=== PATIENT | male | born 1960 | race Caucasian/White ===

== ENCOUNTER 2016-05-24 11:51 | Inpatient (IN) | payer MEDICARE, MEDICAID ==
[2016-05-24] MEDS ORDERED: LACTATED RINGERS 1,000 ML ONE (12:44)
[2016-05-24] MEDS ORDERED: PIPERACILLIN-TAZO PREMIX BAG 50 ML IV ONE (12:44)
[2016-05-24 12:52] LABS: ABSOLUTE NEUTROPHIL COUNT 13.3 K/mm3 (1.8-7.7); BASO # 0.1 K/mm3 (0.0-0.2); BASO % 0.5 % (0.2-1.0); HEMATOCRIT 40.3 % (32.0-52.0); HEMOGLOBIN 13.9 gm/l (14.0-18.0); IMM NEUT # 0.4 K/mm3 (0-0.2); IMM NEUT% 2.5 % (0-1); LYMPH # 0.4 (1.0-4.8); LYMPH % 2.5 % (15-45); MEAN CELL VOLUME 80.9 fl (80.0-94.0); MEAN CORPUSCULAR HEMOGLOBIN 27.9 pg (27.0-31.0); MEAN CORPUSCULAR HGB CONC 34.5 g/dl (33.0-37.0); MEAN PLATELET VOLUME 13.8 fl (7.4-10.4); MONO # 0.8 (0.0-0.8); MONO % 5.4 % (4-12); NEUT % 89.1 % (43-75); PLATELET COUNT 51 K/mm3 (130-400); RED CELL DISTRIBUTION WIDTH 13.4 % (11.5-14.5)
[2016-05-24 13:09] LABS: ALB/GLOB RATIO 0.6 (>1.0); ALBUMIN 2.2 gm/dL (3.5-5.7); CALCIUM 6.9 mg/dL (8.6-10.3); MAGNESIUM 1.1 mg/dL (1.9-2.7)
[2016-05-24 13:10] LABS: VENOUS BLOOD GAS BASE EXCESS 3.3 mmol/L (-2.0-2.0); VENOUS BLOOD GAS HCO3 24.7 mmol/L (22.0-27.0)
[2016-05-24 13:17] LABS: INR 1.25; PROTHROMBIN TIME 13.2 SECONDS (9.3-11.4)
--- NOTE | 2016-05-24 13:22 | RAD ---
CHEST 2 VIEWS HISTORY: Fever and hypoxia. Frontal and lateral chest radiographs dated 05/24/2016.. COMPARISON: None. FINDINGS: FOCAL AIRSPACE OPACITY: No anup airspace consolidation. Findings of basilar scarring versus atelectasis, right greater than left. PLEURAL EFFUSION: None. CARDIOMEDIASTINAL SILHOUETTE: Nonenlarged. PNEUMOTHORAX: None identified. OSSEOUS STRUCTURES: No grossly destructive lesions. Small radiopaque foreign body projecting over the left upper arm, correlate for history of projectile injury. IMPRESSION: No gross airspace consolidation identified. Bibasilar scarring versus atelectasis.
[2016-05-24] MEDS ORDERED: VANCOMYCIN HCL 2.5 G in SODIUM CHLORIDE 0.9% 500 ML IV SCH (13:45)
[2016-05-24 13:50] LABS: BAND 17 % (0-10); BASOPHIL 0 % (0-1); EOSINOPHIL 0 % (1-3); LYMPHOCYTE 2 % (15-45); MONOCYTE 4 % (4-12); NEUTROPHILS 77 % (43-75); TOTAL CELLS COUNTED 100
[2016-05-24 13:51] LABS: PLATELET ESTIMATE NO PLT CLUMPS SEEN (NORMAL)
[2016-05-24 14:25] LABS: SPECIFIC GRAVITY 1.005 (1.001-1.030); URINE BILIRUBIN 1+ (NEGATIVE); URINE BLOOD 3+ (NEGATIVE); URINE GLUCOSE (UA) NEGATIVE (NEGATIVE); URINE LEUKOCYTE ESTERASE TRACE (NEGATIVE); URINE NITRITE NEGATIVE (NEGATIVE); URINE PROTEIN 1+ (NEGATIVE); URINE UROBILINOGEN 12 mg/dL (0-1 mg/dl)
[2016-05-24 14:35] LABS: URINE APPEARANCE HAZY; URINE COLOR AMBER
[2016-05-24 14:36] LABS: CREATININE,RANDOM URINE 80 mg/dL
[2016-05-24 14:40] LABS: URINE BACTERIA 1+; URINE EPITHELIAL CELLS 0-2 /hpf; URINE RBC 20-30 /hpf
[2016-05-24 14:41] LABS: URINE AMORPHOUS SEDIMENT FEW
[2016-05-24] MEDS ORDERED: MAGNESIUM SULFATE 2 G/50 ML 50 ML IV ONE (15:00)
[2016-05-24] MEDS ORDERED: BUPRENORPHINE/NALOXONE 8MG/2MG 1 EACH FILM SL ONE (15:00)
[2016-05-24 15:31] VITALS: BMI 28.0
[2016-05-24] MEDS ORDERED: BISACODYL 5 MG TABLET.EC PO PRN (15:41)
[2016-05-24] MEDS ORDERED: MENTHOL/CETYLPYRD 1 EACH LOZENGE PO PRN (15:41)
[2016-05-24] MEDS ORDERED: BISACODYL 10 MG SUP PR PRN (15:41)
[2016-05-24] MEDS ORDERED: BLISTEX LIPSTICK 1 EACH TP PRN (15:41)
[2016-05-24] MEDS ORDERED: MAGNESIUM HYDROXIDE 30 ML UDCUP PO PRN (15:41)
[2016-05-24] MEDS ORDERED: HYDROMORPHONE HCL 1 MG/ML SYRINGE IV PRN (15:43)
[2016-05-24] MEDS ORDERED: ONDANSETRON 4 MG/2ML 2 ML VIAL IV PRN (15:43)
[2016-05-24] MEDS ORDERED: VANCOMYCIN HCL 0 G in SODIUM CHLORIDE 0.9% 250 ML IV SCH (15:45)
[2016-05-24] MEDS ORDERED: SODIUM CHLORIDE 0.9% FLUSH 10 ML ONE (15:49)
[2016-05-24] MEDS ORDERED: IV START KIT ONE (15:49)
[2016-05-24] MEDS ORDERED: HYDROMORPHONE HCL 2 MG/ML SYRINGE IV PRN (15:51)
[2016-05-24] MEDS ORDERED: ENOXAPARIN SODIUM 40 MG/0.4 ML SYRINGE SUB-Q SCH (16:00)
[2016-05-24] MEDS: SODIUM CHLORIDE 0.9% 1,000 ML IV SCH ×4 (16:28→23:39)
[2016-05-24] MEDS: PANTOPRAZOLE SODIUM 40 MG VIAL IV SCH (16:28)
[2016-05-24] MEDS ORDERED: PUMP TUBING ONE (16:29)
[2016-05-24] MEDS ORDERED: PROMETHAZINE HCL 12.5 MG in SODIUM CHLORIDE 0.9% 50 ML IV PRN (18:50)
[2016-05-24] MEDS: PIPERACILLIN-TAZO PREMIX BAG 3.375 G in Premix (D5W) 50 ml 1 EACH IV SCH (19:10)
[2016-05-24] MEDS: VANCOMYCIN HCL 1.75 G in SODIUM CHLORIDE 0.9% 500 ML IV SCH (20:04)
--- NOTE | 2016-05-24 21:10 | HP ---
KELLY LI [id number] ADMIT DATE: 05/24/2016 CHIEF COMPLAINT: Leg infection, fever and cough. HISTORY OF PRESENT ILLNESS: Kelly is a 55-year-old male long-term IV drug abuser (heroin). He has never been seen at our facility before. He presented to our emergency room on 05/24/2016 with about a five day history of gradually worsening fever, cough, shortness of breath and weakness, as well as infection on the inside of his right knee (injection site). He has had no headache, no visual symptoms, no difficulty swallowing and no chest pain, though he does feel short of breath. He has had a dry cough that has been nonproductive, with no blood. No abdominal pain and no change in bowel or bladder habits. He has had some increasing swelling in the bilateral lower extremities, in addition to the area of redness and abscess on the inside of the right knee. The abscess began draining just within the last day or so. He has also developed a rash over his feet just within the last one to two days. REVIEW OF SYSTEMS: As noted above, otherwise negative. PAST MEDICAL HISTORY: 1. Hepatitis C. Further details unknown. 2. Long-standing IV drug abuse with heroin. PAST SURGICAL HISTORY: 1. Tonsillectomy and adenoidectomy as a child. 2. Knee arthroscopies in the past. ALLERGIES: None. MEDICATIONS: None. SOCIAL HISTORY: He lives at [place] with his . He smokes about a pack a day for the last 20-30 years. No alcohol use. He does regularly use IV heroin, on average about two to three times a day. FAMILY HISTORY: Noncontributory. OBJECTIVE: VITAL SIGNS: On initial presentation to the ER his blood pressure was 101/62, pulse of 125, O2 sat 95% on two liters, and respirations 24 and labored. In the ER his blood pressure did go as low as 96/40, with a pulse of 137. He did receive some fluids in the ER and upon transfer to the floor his blood pressure was 108/64, with a pulse of 120, respirations of 24 and O2 sat 96% on two liters. GENERAL: This is a well-developed, well-nourished, disheveled-appearing, middle-aged male. He is speaking in full sentences. He yawns frequently during our interview. He does have a dry wheezy cough throughout the interview as well. He is in no distress otherwise. HEENT: Normocephalic, atraumatic. TMs are clear. Oropharynx mucosa with poor dentition, is moist otherwise. Sclera are anicteric. There are no hemorrhages or icterus. NECK: Supple. No JVD. No lymphadenopathy. No masses. LUNGS: Bilateral basilar rales, otherwise clear, with distant breath sounds. HEART: Regular rate and rhythm. He does have a 2/6 murmur heard best over the right upper sternal border. ABDOMEN: Soft, nontender and nondistended. No rebound or guarding. EXTREMITIES: On the inside of the right knee he has an area of redness approximately 8 cm in diameter. There is an open draining abscess in the middle. There is no real fluctuance. There does not appear to be an effusion in the knee itself. It is for the most part nontender to palpation. He has 2+ edema in the bilateral lower extremities, as well as a petechial rash over the entire dorsum of both feet beginning just above the ankle bilaterally and covering the dorsums of both feet. There are no other splinter hemorrhages and no other purpuric lesions. LABS: CBC with a white count of 14.9, with 77% neutrophils, 17% bands, 2% lymphs, 4% monos and zero percent eosinophils. Hemoglobin 13.9, hematocrit 40.3 and platelets of 41. Chemistry panel with a sodium of 153, potassium 3.3, chloride 93, carbon dioxide 21, BUN of 10, creatinine 0.6, glucose of 104, calcium 6.9 and magnesium 1.1. Total bilirubin elevated at 1.9, AST of 54, ALT of 35, alkaline phosphatase of 91, troponin 0.03, BNP of 204 and lipase of 14. INR is slightly elevated at 1.25. Lactate is elevated at 2.6. Urinalysis has 1+ protein, 3+ blood, negative nitrites, trace leukocyte esterase and 1+ bacteria. Influenza A and B and Group A Strep are all negative. IMAGING: Chest x-ray; normal cardiac silhouette. No obvious infiltrates or effusions. ASSESSMENT: 1. Cellulitis/abscess to the left knee in an IV drug abuser (injection site). 2. Severe sepsis secondary to above. 3. Presumed endocarditis, with heart murmur, fever and petechial rash over the lower extremities. 4. Thrombocytopenia. 5. Chronic hepatitis C, with no other details known. 6. Long-standing IV drug abuse with heroin. 7. Hyponatremia and hypomagnesemia. PLAN: He is admitted to [facility] [place]. Unfortunately his severe sepsis was not recognized in the ER and he did not receive adequate fluid per protocol there. We have initiated aggressive IV fluid here. He actually appears minimally symptomatic at this point. Blood cultures and cultures of his abscess have been drawn. We have started him on vancomycin and Zosyn. Electrolytes will be replaced and followed. We will attempt to get an echo as soon as possible. As far as the wound itself, it does not appear to be fluctuant or have a large abscess. We will reevaluate in the morning and consider CT of the lower extremity at that point depending on how it looks. It appears to be superficial and localized. DVT prophylaxis is contraindicated given his low platelets. Further care is dictated by clinical course.
[2016-05-24] MEDS: HYDROMORPHONE HCL 2 MG/ML SYRINGE IV PRN (21:41)
[2016-05-25] MEDS: PIPERACILLIN-TAZO PREMIX BAG 3.375 G in Premix (D5W) 50 ml 1 EACH IV SCH ×5 (00:23→23:03)
[2016-05-25] MEDS: VANCOMYCIN HCL 1.75 G in SODIUM CHLORIDE 0.9% 500 ML IV SCH ×3 (03:15→23:43)
[2016-05-25 03:16] LABS: OSMOLALITY 274 mOs/Kg (275-300)
[2016-05-25 03:17] LABS: OSMOLALITY,URINE 396 mOs/Kg (500-800)
[2016-05-25 05:59] LABS: ABSOLUTE NEUTROPHIL COUNT 11.4 K/mm3 (1.8-7.7); BASO # 0.1 K/mm3 (0.0-0.2); BASO % 0.4 % (0.2-1.0); EOS % 0.2 % (0.9-2.9); HEMATOCRIT 37.6 % (32.0-52.0); IMM NEUT # 0.1 K/mm3 (0-0.2); IMM NEUT% 0.5 % (0-1); LYMPH # 0.5 (1.0-4.8); LYMPH % 4.2 % (15-45); MEAN CELL VOLUME 80.3 fl (80.0-94.0); MEAN CORPUSCULAR HEMOGLOBIN 27.8 pg (27.0-31.0); MEAN CORPUSCULAR HGB CONC 34.6 g/dl (33.0-37.0); MONO # 0.7 (0.0-0.8); MONO % 5.6 % (4-12); NEUT % 89.1 % (43-75); PLATELET COUNT 36 K/mm3 (130-400); RED CELL DISTRIBUTION WIDTH 13.6 % (11.5-14.5)
[2016-05-25 06:02] LABS: ALB/GLOB RATIO 0.6 (>1.0); ALBUMIN 2.2 gm/dL (3.5-5.7); CALCIUM 7.5 mg/dL (8.6-10.3)
[2016-05-25 06:25] LABS: BAND 0 % (0-10); BASOPHIL 0 % (0-1); EOSINOPHIL 0 % (1-3); LYMPHOCYTE 5 % (15-45); MONOCYTE 4 % (4-12); NEUTROPHILS 91 % (43-75); PLATELET ESTIMATE DECREASED (NORMAL); TOTAL CELLS COUNTED 100
[2016-05-25] MEDS ORDERED: PNEUMOCOCCAL 23-VAL P-SAC VAC 0.5 ML VIAL IM V ONE (09:41)
[2016-05-25] MEDS ORDERED: FLU VACC 2016-17 (36MO-64Y)/PF 60 MCG/0.5 ML SYRINGE IM V ONE (09:41)
[2016-05-25] MEDS: LORAZEPAM 2 MG/ML 1ML SDV IV PRN ×2 (10:18→21:56)
[2016-05-25] MEDS: SODIUM CHLORIDE 0.9% 1,000 ML IV SCH ×2 (10:55→21:58)
--- NOTE | 2016-05-25 11:16 | PDOC43 ---
- Subjective Chief Complaint: Leg infection, fever, cough, SOB Feeling better this AM. Still SOB and cough but improved. No fever since admit. Leg redness/warmth improved. Subjective: Reports Pain Tolerable, Reports Tolerating Diet Well, Reports Adequate Oral Intake, Denies Chest Pain, Denies Abdominal Pain, Denies Nausea, Denies Vomiting - Objective Vital Signs Temperature 98.6 F 05/25/16 07:02 Pulse Rate 100 05/25/16 07:02 Respiratory Rate 32 05/25/16 07:02 Blood Pressure 125/79 05/25/16 07:02 O2 Saturation by Pulse Oximetry 98 05/25/16 07:02 Oxygen Delivery Method Nasal Cannula Oxygen Flow Rate 2 Intake and Output 05/24/16 05/25/16 05/26/16 06:59 06:59 06:59 Intake Total 6898 236 Output Total 3850 Balance 3048 236 General: Alert, Oriented x3, Cooperative, No Acute Distress HEENT: Atraumatic, PERRLA, Mucous membr. moist/pink Lungs: Other (Scattered coarse sounds B.) Cardiovascular: Regular Rate and Rhythm, Murmur (2/6 SOCORRO.) Abdomen: Soft, Normal Bowel Sounds, Non-Distended, No Rebounding Extremities: Other (Edema decreased to 1+ B. Petechial rash on B feet/shins markedly improved. Cellulitis/abcess on inner R knee improved and appears superficial. No effusion. No extension of redness/warmth.) Laboratory 05/25/16 05:30 05/24/16 05/24/16 05/25/16 12:24 19:25 05:30 Neutrophils % (Manual) 91 H Band Neutrophils % 0 Lymphocytes % (Manual) 5 L Monocytes % (Manual) 4 Eosinophils % (Manual) 0 L VBG Lactate 2.6 H 2.8 H 1.3 Sodium 125 L Potassium 3.4 L Chloride 95 L Carbon Dioxide 23 Anion Gap 10 Creatinine 0.6 Estimated GFR 140 H Total Bilirubin 1.9 H AST 50 H ALT 32 Alkaline Phosphatase 83 Troponin I < 0.01 Current Medications: Current meds reviewed in EMR. - Problems: Assessment/Plan (1) Cellulitis and abscess of lower extremity Status: AcuteAssessment/Plan: At IVDA injection site on medial R knee. Improved today. No evidence of deeper abcess or nec fac. All prelim blood cx and wound cx growing gpc in clusters. Con't vanco/zosyn. (2) Severe sepsis Status: AcuteAssessment/Plan: Associated with above. Resolved. (3) Endocarditis Qualifiers: Endocarditis type: unspecified Chronicity: unspecified Qualifier Code: (I38) Endocarditis, valve unspecified Status: SuspectedAssessment/Plan : Suspected Infective Endocarditis based on multiple minor criteria. TTE scheduled for today. Blood cx results as above. May need transfer for LIZ/ cardiology vs phone consult with ID/cardiology once echo and cx results known. (4) Hyponatremia Status: AcuteAssessment/Plan: Presumed d/t above. Osmolalities pending. Improving, supportive care. (5) Thrombocytopenia Status: AcuteAssessment/Plan: Unclear etiology- severe sepsis vs IVDA vs DIC vs? Follow closely, supportive care. No DVT prophylaxis. (6) Heroin abuse Status: ChronicAssessment/Plan: Long standing heavy use. SW consult. IV ativan/dilaudid prn for withdrawal sx. (7) Hepatitis C Qualifiers: Viral hepatitis chronicity: unspecified Status: ChronicAssessment/Plan: Unknown details. Supportive care. VTE Prophylaxis: Contraindicated d/t thrombocytopenia. Disposition: Unknown.
[2016-05-25] MEDS ORDERED: SODIUM CHLORIDE 0.9% FLUSH 10 ML ONE (11:58)
[2016-05-25] MEDS ORDERED: IV START KIT ONE (11:58)
[2016-05-25 12:00] LABS: VANCOMYCIN TROUGH 14.2 ug/ml (5.0-10.0)
[2016-05-25] MEDS ORDERED: LIDOCAINE 1% (PRES FREE) 5 ML VIAL PF PRN (12:42)
[2016-05-25] MEDS ORDERED: LORAZEPAM 2 MG/ML 1ML SDV IV PRN (12:42)
--- NOTE | 2016-05-25 14:57 | RAD ---
PORTABLE CHEST RADIOGRAPH HISTORY: PICC placement. Frontal portable chest radiograph dated 05/25/2016. COMPARISON: 05/24/2016. FINDINGS: FOCAL AIRSPACE OPACITY: Patchy right basal density, pneumonia is possible. PLEURAL EFFUSION: Small right pleural effusion. LUNG VOLUMES: Diminished. CARDIOMEDIASTINAL SILHOUETTE: Nonenlarged. Interval placement of left upper extremity approach venous catheter, tip projecting over the superior vena cava, PICC nurse aware. PNEUMOTHORAX: None identified. OSSEOUS STRUCTURES: No grossly destructive lesions. IMPRESSION: Low lung volumes with interval development of right lung base density, atelectasis and pneumonia are possible. Small right pleural effusion. Left-sided PICC, tip projecting over superior vena cava.
[2016-05-25] MEDS ORDERED: METHADONE 10 MG TABLET PO SCH (15:15)
--- NOTE | 2016-05-25 15:18 | RAD ---
PORTABLE CHEST RADIOGRAPH HISTORY: Recheck PICC placement. Frontal portable chest radiograph dated 05/25/2016 at 1512 hours. COMPARISON: 05/25/2016 at 1433 hours FINDINGS: FOCAL AIRSPACE OPACITY: Redemonstration of low lung volumes and right basal density. PLEURAL EFFUSION: None. CARDIOMEDIASTINAL SILHOUETTE: Nonenlarged. Left upper extremity approach catheter now projects over the right atrium, PICC nurse aware. PNEUMOTHORAX: None identified. OSSEOUS STRUCTURES: No grossly destructive lesions. IMPRESSION: Interval advancement of left-sided PICC, projecting over the right atrium. Residual low lung volumes. Right basal density compatible with atelectasis or pneumonia.
[2016-05-25] MEDS: ALBUTEROL NEB 2.5 MG/3 ML VIAL.NEB NEB PRN ×2 (16:12→19:46)
[2016-05-25] MEDS: HYDROMORPHONE HCL 2 MG/ML SYRINGE IV PRN (16:57)
[2016-05-25] MEDS: PANTOPRAZOLE SODIUM 40 MG VIAL IV SCH (17:18)
--- NOTE | 2016-05-25 20:02 | PDOC36 ---
Provider Note Subject: follow-up Note: Heroin withdrawal--methadone started Poor IV access--PICC placed hypokalemia--replace hypoxemia and PNA vs. atylectasis on CXR--continue current abx, schedule dugingerbs , IS TT ECHO without evidence of vegetations--given high clinical suspicion for endocarditis, will still need LIZ.
[2016-05-25] MEDS ORDERED: POTASSIUM CHLORIDE 40 MEQ in SODIUM CHLORIDE 0.9% 500 ML IV ONE (20:30)
[2016-05-25] MEDS ORDERED: PUMP TUBING ONE (20:48)
[2016-05-25] MEDS: ALBUTEROL/IPRATROPIUM 2.5/0.5 MG 3 ML/EACH DOSE NEB SCH (21:30)
[2016-05-25] MEDS: ACETAMINOPHEN 325 MG TABLET PO PRN (23:23)
[2016-05-26] MEDS ORDERED: VANCOMYCIN HCL 1.75 G in SODIUM CHLORIDE 0.9% 500 ML IV SCH (01:00)
[2016-05-26] MEDS: HYDROMORPHONE HCL 2 MG/ML SYRINGE IV PRN ×2 (01:40→20:39)
[2016-05-26] MEDS: SODIUM CHLORIDE 0.9% 1,000 ML IV SCH ×3 (02:26→14:07)
[2016-05-26] MEDS: METHADONE 10 MG TABLET PO SCH ×2 (02:58→14:38)
[2016-05-26] MEDS: PIPERACILLIN-TAZO PREMIX BAG 3.375 G in Premix (D5W) 50 ml 1 EACH IV SCH ×2 (05:18→11:29)
[2016-05-26 05:38] LABS: HEMATOCRIT 36.8 % (32.0-52.0); HEMOGLOBIN 12.4 gm/l (14.0-18.0); MEAN CELL VOLUME 82.9 fl (80.0-94.0); MEAN CORPUSCULAR HEMOGLOBIN 27.9 pg (27.0-31.0); MEAN CORPUSCULAR HGB CONC 33.7 g/dl (33.0-37.0)
[2016-05-26 05:58] LABS: ALB/GLOB RATIO 0.6 (>1.0); CALCIUM 7.3 mg/dL (8.6-10.3); MAGNESIUM 1.8 mg/dL (1.9-2.7)
[2016-05-26] MEDS: VANCOMYCIN HCL 1.75 G in SODIUM CHLORIDE 0.9% 500 ML IV SCH ×2 (07:50→16:18)
[2016-05-26] MEDS: ALBUTEROL/IPRATROPIUM 2.5/0.5 MG 3 ML/EACH DOSE NEB SCH ×4 (08:15→20:28)
[2016-05-26] MEDS ORDERED: PNEUMOCOCCAL 23-VAL P-SAC VAC 0.5 ML VIAL IM V ONE (09:00)
[2016-05-26] MEDS ORDERED: FLU VACC 2016-17 (36MO-64Y)/PF 60 MCG/0.5 ML SYRINGE IM V ONE (09:00)
[2016-05-26] MEDS: POTASSIUM CHLORIDE 20 MEQ TAB.PRT.SR PO SCH ×2 (11:57→14:08)
[2016-05-26] MEDS: Magnesium Oxide 400 MG TABLET PO SCH ×2 (11:57→23:05)
--- NOTE | 2016-05-26 15:04 | US ---
RT SHOULDER NON VASC COMPARISON: Chest one view, 05/25/2016 HISTORY: Right shoulder arthralgia, sepsis, limited range of motion, and history of intravenous drug abuse. Evaluate for effusion. FINDINGS: Area scanned: Right shoulder anterior, lateral, and posterior Fluid collection: There is no visible joint effusion or bursal fluid collection. IMPRESSION: 1. No visible joint effusion or bursal fluid collection of the right shoulder.
[2016-05-26 16:09] LABS: VANCOMYCIN TROUGH 15.3 ug/ml (5.0-10.0)
[2016-05-26] MEDS: PANTOPRAZOLE SODIUM 40 MG VIAL IV SCH (16:18)
--- NOTE | 2016-05-26 17:29 | PDOC43 ---
- Subjective Chief Complaint: Leg infection, fever, cough, SOB Subjective: Reports Pain Tolerable, Denies Shortness of Breath, Denies Chest Pain, Denies Fever - Objective Vital Signs Temperature 98.6 F 05/26/16 16:00 Pulse Rate 96 05/26/16 16:31 Respiratory Rate 29 05/26/16 16:31 Blood Pressure 156/88 05/26/16 16:00 O2 Saturation by Pulse Oximetry 96 05/26/16 16:31 Oxygen Delivery Method Nasal Cannula Oxygen Flow Rate 3 Intake and Output 05/25/16 05/26/16 05/27/16 06:59 06:59 06:59 Intake Total 6894 6790 3192 Output Total 3850 2851 1300 Balance 3048 2703 1892 General: Alert, Oriented x3, Cooperative, No Acute Distress HEENT: Mucous membr. moist/pink Lungs: Diminished at Bases (some scattered coarse breath sounds) Cardiovascular: Regular Rate and Rhythm, Murmur (2/6 SOCORRO) Abdomen: Soft, Normal Bowel Sounds, Non-Distended, No Tenderness Extremities: Edema (one plus pedal and ankle edema, some bilateral hand swelling ), Other (right shoulder painful to passive ROM and resists active ROM) Skin: Erythema (improved over medial mid lower leg, purulent drainage from abcess with skin opening of 2mm, no knee effusion, FROM right knee) Laboratory 05/26/16 05:00 05/26/16 15:40 05/26/16 05/26/16 15:40 05:00 RBC 4.44 L Estimated GFR 173 H 140 H Calcium 7.3 L Magnesium 1.8 L Total Bilirubin 1.4 H AST 58 H Total Protein 5.5 L Albumin 2.0 L Albumin/Globulin Ratio 0.6 L Vancomycin Trough 15.3 H Current Medications: Current meds reviewed in EMR. - Problems: Assessment/Plan (1) Cellulitis and abscess of lower extremity Status: AcuteAssessment/Plan: At IVDA injection site on medial R knee. Improved today. No evidence of deeper abcess or nec fac. All prelim blood cx growing gpc in clusters, urine and abscess both growing MRSA. Cont. vanco and stop zosyn. Repeat daily blood Cx until negative (2) Severe sepsis Status: AcuteAssessment/Plan: Associated with above. Resolved. (3) Hyponatremia Status: AcuteAssessment/Plan: Presumed d/t above. Osmolalities pending. Improving, supportive care. (4) Thrombocytopenia Status: AcuteAssessment/Plan: Unclear etiology- severe sepsis vs IVDA vs DIC vs? Follow closely, supportive care. No DVT prophylaxis. (5) Heroin abuse Status: ChronicAssessment/Plan: Long standing heavy use. consult. Methadone for withdrawal sx. (6) Hepatitis C Qualifiers: Viral hepatitis chronicity: unspecified Status: ChronicAssessment/Plan: Unknown details. Supportive care. (7) Endocarditis Qualifiers: Endocarditis type: unspecified Chronicity: unspecified Qualifier Code: (I38) Endocarditis, valve unspecified Status: SuspectedAssessment/Plan : Suspected Infective Endocarditis based on multiple minor criteria. TTE showed no vegetations. Blood cx results as above. D/W ID, will likely need 4-6 weeks of Vancomycin, need to TEECHO is unclear, but would be recommended for persistently positive blood CX, advised to repeat Blood Cx daily until negative. VTE Prophylaxis: [facility] measures only concern for use of heparin analogues due to thrombocytopenia Disposition: Anticipate need for SNF stay
[2016-05-26] MEDS: ACETAMINOPHEN 325 MG TABLET PO PRN (23:09)
[2016-05-27] MEDS ORDERED: PUMP TUBING ONE ×3 (00:03→23:14)
[2016-05-27] MEDS: VANCOMYCIN HCL 1.75 G in SODIUM CHLORIDE 0.9% 500 ML IV SCH ×4 (00:13→23:23)
[2016-05-27] MEDS: LORAZEPAM 2 MG/ML 1ML SDV IV PRN (00:57)
[2016-05-27] MEDS: SODIUM CHLORIDE 0.9% 1,000 ML IV SCH (01:02)
[2016-05-27] MEDS: METHADONE 10 MG TABLET PO SCH ×2 (03:36→15:40)
[2016-05-27 06:18] LABS: CALCIUM 7.4 mg/dL (8.6-10.3); MAGNESIUM 1.7 mg/dL (1.9-2.7)
[2016-05-27] MEDS: ALBUTEROL/IPRATROPIUM 2.5/0.5 MG 3 ML/EACH DOSE NEB SCH ×4 (09:32→20:03)
[2016-05-27] MEDS ORDERED: FUROSEMIDE 20 MG/2 ML VIAL IV ONE (09:46)
[2016-05-27] MEDS ORDERED: FUROSEMIDE 20 MG/2 ML VIAL ONE (09:52)
[2016-05-27] MEDS ORDERED: ATENOLOL 50 MG TABLET PO SCH (10:15)
--- NOTE | 2016-05-27 10:22 | PDOC43 ---
- Subjective Chief Complaint: Leg infection, fever, cough, SOB Subjective: Reports Adequate Oral Intake, Denies Shortness of Breath, Denies Chest Pain, Denies Fever - Objective Vital Signs Temperature 98.8 F 05/27/16 07:00 Pulse Rate 104 05/27/16 07:00 Respiratory Rate 32 05/27/16 08:00 Blood Pressure 145/97 05/27/16 07:00 O2 Saturation by Pulse Oximetry 99 05/27/16 07:00 Oxygen Delivery Method Room Air Oxygen Flow Rate 0 Intake and Output 05/26/16 05/27/16 05/28/16 06:59 06:59 06:59 Intake Total 5550 1848 300 Output Total 2851 9715 1125 Balance 2703 9923 -828 General: Alert, Oriented x3, Cooperative HEENT: Mucous membr. moist/pink Lungs: Diminished at Bases, Other (some exp wheezes) Cardiovascular: Other (reg tachy, faint murmur-2/6 SOCORRO) Abdomen: Soft, Normal Bowel Sounds, Non-Distended, No Tenderness Extremities: Edema (diffuse anasarca) Skin: Other (right medial mid leg wound/abscess improving, erythema almost resolved, no fluctuance, minimal drainage) Laboratory 05/26/16 05:00 05/27/16 05:00 05/27/16 05/26/16 05:00 15:40 BUN 6 L Estimated GFR 173 H 173 H Calcium 7.4 L Magnesium 1.7 L Vancomycin Trough 15.3 H Current Medications: Current meds reviewed in EMR. - Problems: Assessment/Plan (1) Cellulitis and abscess of lower extremity Status: AcuteAssessment/Plan: At IVDA injection site on medial R knee. Improved today. No evidence of deeper abcess or nec fac. All prelim blood cx growing gpc in clusters, urine and abscess both growing MRSA. Cont. vanco. Repeat daily blood Cx until negative (2) Severe sepsis Status: AcuteAssessment/Plan: Associated with above. Resolved. (3) Hyponatremia Status: AcuteAssessment/Plan: Presumed d/t above. Osmolalities pending. Improving, supportive care. Fluid restrict (4) Thrombocytopenia Status: AcuteAssessment/Plan: Unclear etiology- severe sepsis vs IVDA vs DIC vs? Follow closely, supportive care. No DVT prophylaxis. (5) Heroin abuse Status: ChronicAssessment/Plan: Long standing heavy use. SW consult. Methadone for withdrawal sx. (6) Hepatitis C Qualifiers: Viral hepatitis chronicity: unspecified Status: ChronicAssessment/Plan: Unknown details. Supportive care. (7) Endocarditis Qualifiers: Endocarditis type: unspecified Chronicity: unspecified Qualifier Code: (I38) Endocarditis, valve unspecified Status: SuspectedAssessment/Plan : Suspected Infective Endocarditis based on multiple minor criteria. TTE showed no vegetations. Blood cx results as above. D/W ID, will likely need 4-6 weeks of Vancomycin, need to TEECHO is unclear, but would be recommended for persistently positive blood CX, advised to repeat Blood Cx daily until negative. (8) Anasarca Status: AcuteAssessment/Plan: will give Lasix (9) Hypertension Qualifiers: Hypertension type: other secondary hypertension Qualifier Code: (I15.8 ) Other secondary hypertension Status: AcuteAssessment/Plan: with tachycardia may be due to opioid withdrawal-add atenolol, cont. methadone VTE Prophylaxis: [facility] measures only concern for use of heparin analogues due to thrombocytopenia Disposition: Anticipate need for SNF stay
[2016-05-27] MEDS: ATENOLOL 50 MG TABLET PO SCH (11:39)
[2016-05-27] MEDS: Magnesium Oxide 400 MG TABLET PO SCH ×2 (11:39→21:15)
[2016-05-27 15:51] LABS: VANCOMYCIN TROUGH 16.3 ug/ml (5.0-10.0)
[2016-05-27] MEDS: PANTOPRAZOLE SODIUM 40 MG VIAL IV SCH (16:08)
[2016-05-27] MEDS: SODIUM CHLORIDE 0.9% 100 ML IV PRN (23:23)
[2016-05-28] MEDS: METHADONE 10 MG TABLET PO SCH ×2 (02:36→15:42)
[2016-05-28 06:31] LABS: CALCIUM 7.8 mg/dL (8.6-10.3)
[2016-05-28] MEDS: VANCOMYCIN HCL 1.75 G in SODIUM CHLORIDE 0.9% 500 ML IV SCH ×3 (08:03→23:32)
[2016-05-28] MEDS: ATENOLOL 50 MG TABLET PO SCH (08:05)
[2016-05-28] MEDS: Magnesium Oxide 400 MG TABLET PO SCH ×2 (08:05→19:59)
[2016-05-28] MEDS: ALBUTEROL/IPRATROPIUM 2.5/0.5 MG 3 ML/EACH DOSE NEB SCH ×3 (10:05→20:53)
[2016-05-28] MEDS ORDERED: FUROSEMIDE 20 MG/2 ML VIAL IV ONE (10:11)
--- NOTE | 2016-05-28 14:04 | PDOC43 ---
- Subjective Chief Complaint: Leg infection, fever, cough, SOB feeling better but upset about fluid restriction. Subjective: Denies Shortness of Breath, Denies Chest Pain, Denies Fever - Objective Vital Signs Temperature 98.6 F 05/28/16 07:08 Pulse Rate 84 05/28/16 11:00 Respiratory Rate 28 05/28/16 11:00 Blood Pressure 142/72 05/28/16 11:00 O2 Saturation by Pulse Oximetry 93 05/28/16 11:00 Oxygen Delivery Method Room Air Oxygen Flow Rate 0 Intake and Output 05/27/16 05/28/16 05/29/16 06:59 06:59 06:59 Intake Total 5297 9188 4279 Output Total 6885 5140 4730 Balance 4642 -8573 839 General: Alert, Oriented x3, Cooperative, No Acute Distress HEENT: Mucous membr. moist/pink Lungs: Diminished at Bases (some exp wheezes) Cardiovascular: Regular Rate and Rhythm, Murmur (faint, 2/6 SOCORRO) Abdomen: Soft, Normal Bowel Sounds, Non-Distended, No Tenderness Extremities: Edema (improving but still with 1+anasarca) Skin: Warm, Dry Wound: Dressing Saturated (with purulect drainage over medial aspect of right night, erythema resolving) Laboratory 05/26/16 05:00 05/28/16 04:05 05/28/16 05/27/16 04:05 15:25 Estimated GFR 140 H 173 H Calcium 7.8 L Vancomycin Trough 16.3 H Current Medications: Current meds reviewed in EMR. - Problems: Assessment/Plan (1) Cellulitis and abscess of lower extremity Status: AcuteAssessment/Plan: At IVDA injection site on medial R knee. Improved today. No evidence of deeper abcess or nec fac. All prelim blood cx growing MRSA, urine and abscess both growing MRSA. Cont. vanco. Repeat daily blood Cx until negative (2) Severe sepsis Status: AcuteAssessment/Plan: Associated with above. Resolved. (3) Hyponatremia Status: AcuteAssessment/Plan: Presumed d/t above. Osmolalities C/W SIADH. Improving, supportive care. Fluid restriction helped but doubt [employer] compliance, chronic liver disease may be playing a role-relax fluid restriction, Lasix 20mg IV times one. (4) Thrombocytopenia Status: AcuteAssessment/Plan: Unclear etiology- severe sepsis vs IVDA vs DIC vs chronic liver disease. Follow closely, supportive care. No DVT prophylaxis. (5) Heroin abuse Status: ChronicAssessment/Plan: Long standing heavy use. SW consult. Methadone for withdrawal sx. Patient states that he plans to remain abstinent and enroll in methadone maintenance program. Patient pledges not to use PICC if treated as an outpatient. (6) Hepatitis C Qualifiers: Viral hepatitis chronicity: unspecified Status: ChronicAssessment/Plan: Unknown details. Supportive care. (7) Endocarditis Qualifiers: Endocarditis type: unspecified Chronicity: unspecified Qualifier Code: (I38) Endocarditis, valve unspecified Status: SuspectedAssessment/Plan : Suspected Infective Endocarditis based on multiple minor criteria. TTE showed no vegetations. Blood cx results as above. D/W ID, will likely need 4-6 weeks of Vancomycin, need to TEECHO is unclear, but would be recommended for persistently positive blood CX, advised to repeat Blood Cx daily until negative. (8) Anasarca Status: AcuteAssessment/Plan: will give Lasix (9) Hypertension Qualifiers: Hypertension type: other secondary hypertension Qualifier Code: (I15.8 ) Other secondary hypertension Status: AcuteAssessment/Plan: improved with atenolol, cont. methadone VTE Prophylaxis: [facility] measures only concern for use of heparin analogues due to thrombocytopenia Disposition: Exploring options, patient would like to go to [facility] and be treated as an outpatient. If accepted by [facility], could potentially be discharge in am. Patient may need outpatient cardiology consult for transesophageal ECHO but would defer to ID specialist. SS working on referral for methadone maintenance.
[2016-05-28] MEDS: PANTOPRAZOLE SODIUM 40 MG VIAL IV SCH (15:42)
[2016-05-28 18:01] LABS: BODY FLUID APPEARANCE CLOUDY; BODY FLUID COLOR YELLOW; BODY FLUID RBC 0 k/uL; BODY FLUID SOURCE R SHOULDER; BODY FLUID WBC 60 /uL
[2016-05-28 18:02] LABS: BODY FLUID MONONUCLEAR 6 %; BODY FLUID NEUTROPHIL 94 %
[2016-05-28] MEDS: HYDROMORPHONE HCL 2 MG/ML SYRINGE IV PRN (19:56)
[2016-05-28] MEDS ORDERED: PUMP TUBING ONE (23:28)
[2016-05-29] MEDS: ATENOLOL 50 MG TABLET PO SCH (08:13)
[2016-05-29] MEDS: ACETAMINOPHEN 325 MG TABLET PO PRN ×2 (08:13→20:46)
[2016-05-29] MEDS ORDERED: CEFAZOLIN SODIUM 2 GRAM PREMIX 2 G in Premix (D5W) 100 ml 1 EACH IV PRN (08:44)
[2016-05-29 09:12] LABS: ABSOLUTE NEUTROPHIL COUNT 9.6 K/mm3 (1.8-7.7); BASO # 0.1 K/mm3 (0.0-0.2); BASO % 0.5 % (0.2-1.0); EOS # 0.2 (0.0-0.5); EOS % 1.9 % (0.9-2.9); HEMATOCRIT 39.6 % (32.0-52.0); HEMOGLOBIN 12.9 gm/l (14.0-18.0); IMM NEUT # 0.2 K/mm3 (0-0.2); IMM NEUT% 1.8 % (0-1); LYMPH % 8.6 % (15-45); MEAN CELL VOLUME 84.3 fl (80.0-94.0); MEAN CORPUSCULAR HEMOGLOBIN 27.4 pg (27.0-31.0); MEAN CORPUSCULAR HGB CONC 32.6 g/dl (33.0-37.0); MEAN PLATELET VOLUME 11.9 fl (7.4-10.4); MONO # 0.7 (0.0-0.8); NEUT % 81.2 % (43-75); PLATELET COUNT 114 K/mm3 (130-400); RED CELL DISTRIBUTION WIDTH 14.5 % (11.5-14.5)
[2016-05-29] MEDS ORDERED: LACTATED RINGERS 1,000 ML IV SCH ×2 (09:12→18:00)
[2016-05-29] MEDS ORDERED: PUMP TUBING ONE ×3 (09:24→20:26)
[2016-05-29 09:27] LABS: CALCIUM 7.9 mg/dL (8.6-10.3)
[2016-05-29] MEDS ORDERED: POTASSIUM CHLORIDE 40 MEQ in SODIUM CHLORIDE 0.9% 180 ML IV ONE (10:03)
[2016-05-29] MEDS ORDERED: MAGNESIUM SULFATE 2 G/50 ML 2 G in Premix (Water) 50 ml 1 EACH IV ONE (10:03)
[2016-05-29] MEDS: VANCOMYCIN HCL 1.75 G in SODIUM CHLORIDE 0.9% 500 ML IV SCH ×2 (10:07→20:35)
[2016-05-29] MEDS: METHADONE 10 MG TABLET PO SCH ×3 (10:11→20:46)
--- NOTE | 2016-05-29 10:12 | PDOC43 ---
- Subjective Subjective: Denies Pain Tolerable (Pt has pain with passive motion of the right shoulder. No previous problems prior to this hospital admission. Pt admits to some drainage still from his right leg abscess) - Objective Vital Signs Temperature 98.9 F 05/29/16 05:00 Pulse Rate 90 05/29/16 05:00 Respiratory Rate 18 05/29/16 05:00 Blood Pressure 132/79 05/29/16 05:00 O2 Saturation by Pulse Oximetry 93 05/29/16 05:00 Oxygen Delivery Method Nasal Cannula Oxygen Flow Rate 1 Laboratory 05/29/16 09:00 05/29/16 09:00 05/29/16 05/29/16 09:00 07:05 MCHC 32.6 L Estimated GFR 140 H Calcium 7.9 L Vancomycin Trough 18.5 H % Immature Granulocyt 1.8 H Active Medication Orders Category Date Time Status Acetaminophen [Tylenol] Med 05/24/16 15:41 Active 650 mg PO Q6H PRN Albuterol Sulf Neb 2.5mg/3ml [Ventolin Inhalation Med 05/24/16 15:43 Active Solution (Dose)] 2.5 mg NEB Q2H PRN Albuterol/Ipratropium 2.5/0.5 [Duoneb] Med 05/25/16 20:00 Active 3 ml NEB 08,12,16,20 Atenolol [Tenormin] Med 05/27/16 11:45 Active 50 mg PO DAILY Bisacodyl [Dulcolax] Med 05/24/16 15:41 Active 10 mg CO DAILY PRN Bisacodyl [Dulcolax] Med 05/24/16 15:41 Active 5 mg PO DAILY PRN Cefazolin Sodium 2 Gram Premix [Ancef 2 Gram Premix] 2 Med 05/29/16 08:44 Active g Premix (D5W) 100 ml 1 each IV ON HOLD TO OR Furosemide [Lasix] Med 05/29/16 10:15 Ordered 20 mg IV DAILY Lactated Ringers 1,000 ml Med 05/29/16 10:03 Ordered IV 125 mls/hr Lidocaine 1% (Pres Free) Med 05/25/16 12:42 Active 2 - 5 ml PF X1 PRN Lip [place] [Blistex] Med 05/24/16 15:41 Active 1 each TP PRN PRN Lorazepam [Ativan] Med 05/25/16 12:42 Active 0.5 - 1 mg IV X1 PRN Lorazepam [Ativan] Med 05/24/16 18:47 Active 1 mg IV Q6H PRN Magnesium Hydroxide [Milk of Magnesia] Med 05/24/16 15:41 Active 30 ml PO DAILY PRN Magnesium Oxide Med 05/26/16 12:00 Active 800 mg PO BID Magnesium Sulfate 2 G/50 ml [Magnesium Sulfate] 2 g Med 05/29/16 10:03 Ordered Premix (Water) 50 ml 1 each IV X1 Menthol/Cetylpyridinium [Cepacol] Med 05/24/16 15:41 Active 1 each PO PRN PRN Methadone Med 05/26/16 03:30 Active 20 mg PO Q12H Pantoprazole Sodium [Protonix] Med 05/24/16 16:00 Active 40 mg IV Q24H Potassium Chloride 40 meq Med 05/29/16 10:03 Ordered Sodium Chloride 0.9% 180 ml IV X1 Promethazine HCl [Phenergan] 12.5 mg Med 05/24/16 18:50 Active Sodium Chloride 0.9% 50 ml IV Q4H Sodium Chloride 0.9% 100 ml Med 05/24/16 15:41 Active IV PRN Sodium Chloride 0.9% Flush [Normal Saline 10ml Flush] Med 05/24/16 15:41 Active 10 - 50 ml IV PRN PRN Sodium Chloride 0.9% Flush [Normal Saline 10ml Flush] Med 05/24/16 17:00 Active 10 ml IV Q8HR Vancomycin HCl 1.75 g Med 05/26/16 00:00 Active Sodium Chloride 0.9% 500 ml IV Q8H Intake and Output 05/27/16 05/28/16 05/29/16 23:59 23:59 23:59 Intake Total 3504 4252 935 Output Total 3718 7654 1000 Balance -8630 1347 -65 General: Afebrile - Right Upper Extremity Incision: No Erythema, No Ecchymosis Motor: Extensor Pollicis Longus: 5/5, Finger Flexors: 5/5, Finger Extensors: 5/5 , Wrist Flexors: 5/5, Wrist Extensors: 5/5, Intrinsics: 5/5, Biceps: 4/5, Triceps: 4/5, Deltoid: 4/5 (painful with active and passive shoulder motion) Gross Sensation to Light Touch: Present: Median Nerve, Ulnar Nerve, Radial Nerve , Axillary Nerve Capillary Refill: < 3 Seconds (Pt has passive motion to 90 degrees in FF and abd but motion does cause pain out of proportion) - Right Lower Extremity Incision: Drainage (Pt has drainage by posteromedial knee consistent with an abscess. NO signs of a septic right knee. Pt has well-healed arthroscopic incisions from a previous knee scope), Erythema Capillary Refill: < 3 Seconds - Problems (1) Septic arthritis of shoulder, right Status: Acute (2) Abscess of right leg excluding foot Status: Acute - Disposition 55 yr old male active heroin user HD#4 with bacteremia with signs of a persistent right leg abscess and septic arthritis in the right shoulder NWB on the RUE. Sling for comfort. NPO with IVF. Cont with vanco. Ancef ordered emergency spill response technician to the OR. Pt consented for a right shoulder arthroscopic irrigation and extensive debridement and a right leg abscess irrigation and debridement
[2016-05-29] MEDS ORDERED: SODIUM CHLORIDE 0.9% IV ONE (10:45)
[2016-05-29] MEDS ORDERED: MAGNESIUM SULFATE IV ONE (10:45)
[2016-05-29] MEDS ORDERED: POTASSIUM CHLORIDE IV ONE (10:45)
--- NOTE | 2016-05-29 11:29 | RAD ---
FLUORO GUIDE NEEDLE PLACE/INJ COMPARISON: Ultrasound right shoulder 05/26/2016 HISTORY: Right shoulder arthralgia, sepsis, limited range of motion, and history of intravenous drug abuse. PROCEDURE: The risks and benefits were explained and informed consent was obtained. The skin over the anterior right shoulder was sterilized with ChloraPrep. Lidocaine 1% was used for local anesthetic. Under fluoroscopic guidance (fluoroscopy time 1.0 minute), a 20-gauge spinal needle was advanced into the anterior glenohumeral joint. A total of 3 mL of cloudy fluid was removed. There is no immediate complication. IMPRESSION: 1. Fluoroscopically guided arthrocentesis of the right glenohumeral joint. The specimen was sent for cell count, culture and sensitivity.
[2016-05-29] MEDS: Magnesium Oxide 400 MG TABLET PO SCH ×2 (12:08→20:46)
[2016-05-29] MEDS: FUROSEMIDE 20 MG/2 ML VIAL IV SCH (12:08)
[2016-05-29] MEDS: ALBUTEROL/IPRATROPIUM 2.5/0.5 MG 3 ML/EACH DOSE NEB SCH ×4 (12:26→20:26)
[2016-05-29] MEDS: SODIUM CHLORIDE 0.9% 100 ML IV PRN (12:35)
--- NOTE | 2016-05-29 12:47 | RAD ---
Exam: Complete right shoulder COMPARISON: None similar INDICATION: Sepsis. Findings: Portably obtained AP, Grashey and transscapular y views of the right shoulder were obtained. Overall normal bone mineralization. Alignment is normal. Joint spaces are maintained. Visualized right hemithorax within normal limits. IMPRESSION: Negative radiographic evaluation of the right shoulder, without findings of septic arthritis.
--- NOTE | 2016-05-29 13:23 | PDOC43 ---
- Subjective Chief Complaint: Leg infection, fever, cough, SOB Subjective: Reports Other (persistent right shoulder pain), Denies Shortness of Breath, Denies Chest Pain, Denies Fever - Objective Vital Signs Temperature 98.9 F 05/29/16 05:00 Pulse Rate 90 05/29/16 05:00 Respiratory Rate 18 05/29/16 05:00 Blood Pressure 132/79 05/29/16 05:00 O2 Saturation by Pulse Oximetry 93 05/29/16 05:00 Oxygen Delivery Method Nasal Cannula Oxygen Flow Rate 1 Intake and Output 05/28/16 05/29/16 05/30/16 06:59 06:59 06:59 Intake Total 3981 6454 Output Total 6500 4300 Balance -4929 2154 General: Alert, Oriented x3, Cooperative, No Acute Distress HEENT: Mucous membr. moist/pink Lungs: Diminished at Bases (some exp wheezes) Cardiovascular: Regular Rate and Rhythm, Murmur (2/6 unchanged) Abdomen: Soft, Normal Bowel Sounds, Non-Distended, No Tenderness Extremities: Edema (2 plus in lower ext.), Other (right shoulder remains frozen and without erythema or increased warmth) Skin: Warm, Dry, Intact Laboratory 05/29/16 09:00 05/29/16 09:00 05/29/16 05/29/16 09:00 07:05 MCHC 32.6 L Estimated GFR 140 H Calcium 7.9 L Vancomycin Trough 18.5 H % Immature Granulocyt 1.8 H Current Medications: Current meds reviewed in EMR. - Problems: Assessment/Plan (1) Cellulitis and abscess of lower extremity Status: AcuteAssessment/Plan: At IVDA injection site on medial R knee. Improved today. No evidence of deeper abcess or nec fac. All prelim blood cx growing MRSA, urine and abscess both growing MRSA. Cont. vanco. Repeat daily blood Cx until negative (2) Hyponatremia Status: AcuteAssessment/Plan: Presumed d/t above. Osmolalities C/W SIADH. Improving, supportive care. Fluid restriction helped but doubt long-term compliance, chronic liver disease may be playing a role-relax fluid restriction, repeat Lasix 20mg IV times one. (3) Thrombocytopenia Status: AcuteAssessment/Plan: Unclear etiology- severe sepsis vs IVDA vs DIC vs chronic liver disease. Follow closely, supportive care. No DVT prophylaxis. (4) Heroin abuse Status: ChronicAssessment/Plan: Long standing heavy use. SW consult. Methadone for withdrawal sx. Patient states that he plans to remain abstinent and enroll in methadone maintenance program. Patient pledges not to use PICC if treated as an outpatient, but risk management concerns about outpatient treatment-working with care management and risk management for safe discharge plan (5) Hepatitis C Qualifiers: Viral hepatitis chronicity: unspecified Status: ChronicAssessment/Plan: Unknown details. Supportive care. (6) Endocarditis Qualifiers: Endocarditis type: unspecified Chronicity: unspecified Qualifier Code: (I38) Endocarditis, valve unspecified Status: SuspectedAssessment/Plan : Suspected Infective Endocarditis based on multiple minor criteria. TTE showed no vegetations. Blood cx results as above. D/W ID, will likely need 4-6 weeks of Vancomycin, need to TEECHO is unclear, but would be recommended for persistently positive blood CX, advised to repeat Blood Cx daily until negative. (7) Anasarca Status: AcuteAssessment/Plan: will give Lasix (8) Hypertension Qualifiers: Hypertension type: other secondary hypertension Qualifier Code: (I15.8 ) Other secondary hypertension Status: AcuteAssessment/Plan: improved with atenolol, cont. methadone (9) Septic arthritis of shoulder, right Qualifiers: Septic arthritis organism: staphylococcal Qualifier Code: (M00.011) Staphylococcal arthritis, right shoulder Status: AcuteAssessment/Plan: Appreciate Dr Gonzales consult, arthocentesis growing GPC almost certanly MRSA- washout procedure today VTE Prophylaxis: mech measures only concern for use of heparin analogues due to thrombocytopenia Disposition: Exploring options, patient would like to go to [place] infusion center and be treated as an outpatient. Care management and risk management working on safe treatment plan. Will need 6 weeks of IV Vancomycin unless ID recommends shorter course
[2016-05-29] MEDS ORDERED: ONDANSETRON 4 MG/2ML 2 ML VIAL ONE (15:17)
[2016-05-29] MEDS ORDERED: MIDAZOLAM HCL 1 MG/ML 2ML VIAL ONE (15:18)
[2016-05-29] MEDS ORDERED: DEXAMETHASONE SOD PHOS 4 MG/1 ML VIAL ONE (15:18)
[2016-05-29] MEDS ORDERED: FENTANYL 5 ML ONE (15:18)
[2016-05-29] MEDS ORDERED: PROPOFOL 20 ML IV ONE (15:18)
[2016-05-29] MEDS ORDERED: LIDOCAINE 2% (PRES FREE) 5 ML VIAL ONE (15:22)
[2016-05-29] MEDS ORDERED: SUCCINYLCHOLINE CHL 20 MG/ML DOSE ONE (15:57)
[2016-05-29] MEDS: LACTATED RINGERS 1,000 ML IV SCH ×3 (15:58→22:54)
[2016-05-29] MEDS: PANTOPRAZOLE SODIUM 40 MG VIAL IV SCH (16:55)
[2016-05-29] MEDS ORDERED: PHENYLEPHRINE 10 MG/1 ML (1%) VIAL ONE (17:22)
[2016-05-29] MEDS ORDERED: CEFAZOLIN SODIUM 1,000 MG VIAL ONE (17:39)
[2016-05-29] MEDS ORDERED: LABETALOL HCL 5 MG/ML 20ML VIAL IV PRN (17:51)
[2016-05-29] MEDS ORDERED: ONDANSETRON 4 MG/2ML 2 ML VIAL IV PRN ×2 (17:51→19:53)
[2016-05-29] MEDS ORDERED: HYDRALAZINE HCL 20 MG/1 ML VIAL IV PRN (17:51)
[2016-05-29] MEDS ORDERED: HYDROMORPHONE HCL 1 MG/ML SYRINGE IV PRN (17:51)
[2016-05-29] MEDS ORDERED: ATROPINE SULFATE 0.4 MG/1 ML VIAL IV PRN (17:51)
[2016-05-29] MEDS ORDERED: PROMETHAZINE HCL 25 MG/ML VIAL IM PRN (17:51)
[2016-05-29] MEDS ORDERED: FENTANYL 100 MCG/2 ML VIAL IV PRN (17:51)
[2016-05-29] MEDS ORDERED: MEPERIDINE 25 MG/ML SYRINGE IV PRN (17:51)
[2016-05-29] MEDS ORDERED: NALOXONE HCL 0.4 MG/ML VIAL IV PRN (17:51)
--- NOTE | 2016-05-29 19:09 | PCMBPN ---
Brief Post Op Note: Date of Procedure: 05/29/16 Preoperative Diagnosis: 1. Right shoulder septic arthritis and right medial knee abscess Postoperative Diagnosis: 1. [Same] Procedure: right shoulder arthroscopic biceps tenotomy and extensive arthroscopic debridement and right knee abscess irrigation and debridement Surgeon: Jamie Gonzales MD Assist: Hayden RAMIREZ Anesthesia: GETA Findings: pt has only a small amount of purulence in the medial right knee. Pt had no anup pus from the right shoulder. He had a 90% tear of the long head of the biceps and an intact rotator cuff and synovial hyperemia Condition: extubated, stable vitals, transferred to ICU Complications: None IV Fluids: 900 mLs of LR Urine Output: 0 mLs Estimated Blood Loss: 20 mLs Tourniquet Time: [N/A] Specimens: Knee swab sent to micro for evaluation Implants: None Drains: [N/A] PLAN: WBAT on the RLE and NWB on the RUE. Sling for comfort. Would recommend continue Vanco for MRSA. ASA for DVT prophylaxis.
[2016-05-29] MEDS: HYDROMORPHONE HCL 2 MG/ML SYRINGE IV PRN (21:44)
[2016-05-30] MEDS: HYDROMORPHONE HCL 2 MG/ML SYRINGE IV PRN ×3 (00:30→23:18)
[2016-05-30] MEDS: VANCOMYCIN HCL 1.75 G in SODIUM CHLORIDE 0.9% 500 ML IV SCH ×3 (04:30→20:17)
[2016-05-30] MEDS: LACTATED RINGERS 1,000 ML IV SCH ×2 (04:56→10:33)
[2016-05-30 06:48] LABS: ABSOLUTE NEUTROPHIL COUNT 6.2 K/mm3 (1.8-7.7); BASO % 0.4 % (0.2-1.0); EOS # 0.2 (0.0-0.5); EOS % 2.1 % (0.9-2.9); HEMATOCRIT 37.1 % (32.0-52.0); HEMOGLOBIN 11.7 gm/l (14.0-18.0); IMM NEUT # 0.1 K/mm3 (0-0.2); IMM NEUT% 1.4 % (0-1); LYMPH # 0.9 (1.0-4.8); LYMPH % 10.5 % (15-45); MEAN CELL VOLUME 88.8 fl (80.0-94.0); MEAN CORPUSCULAR HGB CONC 31.5 g/dl (33.0-37.0); MEAN PLATELET VOLUME 11.7 fl (7.4-10.4); MONO # 0.9 (0.0-0.8); MONO % 10.4 % (4-12); NEUT % 75.2 % (43-75); PLATELET COUNT 117 K/mm3 (130-400); RED CELL DISTRIBUTION WIDTH 15.3 % (11.5-14.5)
[2016-05-30 07:46] LABS: CALCIUM 7.6 mg/dL (8.6-10.3); MAGNESIUM 1.8 mg/dL (1.9-2.7)
--- NOTE | 2016-05-30 07:58 | PDOC43 ---
- Subjective Subjective: Reports Pain Tolerable (patient states knee feels ok but shoulder is more sore.), Denies Chest Pain, Denies Shortness of Breath, Denies Nausea, Denies Vomiting, Denies Fever - Objective Vital Signs Temperature 98.7 F 05/30/16 00:16 Pulse Rate 83 05/30/16 04:19 Respiratory Rate 17 05/30/16 04:19 Blood Pressure 115/71 05/30/16 04:19 O2 Saturation by Pulse Oximetry 95 05/30/16 04:19 Oxygen Delivery Method Nasal Cannula Oxygen Flow Rate 3 Laboratory 05/30/16 06:30 05/30/16 06:30 05/30/16 05/29/16 06:30 09:00 RBC 4.18 L MCHC 31.5 L 32.6 L RDW 15.3 H Anion Gap 6 L Estimated GFR 140 H 140 H Calcium 7.6 L 7.9 L Magnesium 1.8 L % Immature Granulocyt 1.4 H 1.8 H Active Medication Orders Category Date Time Status Acetaminophen [Tylenol] Med 05/29/16 19:53 Active 650 mg PO Q6H PRN Albuterol Sulf Neb 2.5mg/3ml [Ventolin Inhalation Med 05/24/16 15:43 Active Solution (Dose)] 2.5 mg NEB Q2H PRN Albuterol/Ipratropium 2.5/0.5 [Duoneb] Med 05/25/16 20:00 Active 3 ml NEB 08,12,16,20 Atenolol [Tenormin] Med 05/27/16 11:45 Active 50 mg PO DAILY Atropine Sulfate Med 05/29/16 17:51 Active 0.2 mg IV X1 PRN Bisacodyl [Dulcolax] Med 05/24/16 15:41 Active 10 mg OR DAILY PRN Bisacodyl [Dulcolax] Med 05/24/16 15:41 Active 5 mg PO DAILY PRN Diphenhydramine HCl [Benadryl] Med 05/29/16 19:53 Active 25 - 50 mg IV Q6H PRN Fentanyl Med 05/29/16 17:51 Active 50 mcg IV Q5M PRN Furosemide [Lasix] Med 05/29/16 10:15 Active 20 mg IV DAILY Hydralazine HCl [Apresoline] Med 05/29/16 17:51 Active 5 mg IV Q10M PRN Hydromorphone HCl [Dilaudid] Med 05/29/16 17:51 Active 0.5 mg IV Q5M PRN Hydromorphone HCl [Dilaudid] Med 05/29/16 20:41 Active 2 - 4 mg IV Q2H PRN Labetalol HCl [Trandate] Med 05/29/16 17:51 Active 5 mg IV Q5M PRN Lactated Ringers 1,000 ml Med 05/29/16 19:53 Active IV 125 mls/hr Lidocaine 1% (Pres Free) Med 05/25/16 12:42 Active 2 - 5 ml PF X1 PRN Lip [place] [Blistex] Med 05/24/16 15:41 Active 1 each TP PRN PRN Lorazepam [Ativan] Med 05/25/16 12:42 Active 0.5 - 1 mg IV X1 PRN Lorazepam [Ativan] Med 05/24/16 18:47 Active 1 mg IV Q6H PRN Magnesium Hydroxide [Milk of Magnesia] Med 05/24/16 15:41 Active 30 ml PO DAILY PRN Magnesium Oxide Med 05/26/16 12:00 Active 800 mg PO BID Menthol/Cetylpyridinium [Cepacol] Med 05/24/16 15:41 Active 1 each PO PRN PRN Meperidine [Demerol] Med 05/29/16 17:51 Active 25 mg IV Q10M PRN Methadone Med 05/29/16 21:00 Active 20 mg PO Q12H Naloxone HCl [Narcan] Med 05/29/16 17:51 Active 0.2 mg IV X1 PRN Ondansetron 4 mg/2ml Vial [Zofran] Med 05/29/16 19:53 Active 4 mg IV Q6H PRN Ondansetron 4 mg/2ml Vial [Zofran] Med 05/29/16 17:51 Active 4 mg IV X1 PRN Pantoprazole Sodium [Protonix] Med 05/24/16 16:00 Active 40 mg IV Q24H Promethazine HCl [Phenergan] Med 05/29/16 17:51 Active 12.5 - 25 mg IM X1 PRN Promethazine HCl [Phenergan] 12.5 mg Med 05/24/16 18:50 Active Sodium Chloride 0.9% 50 ml IV Q4H Sodium Chloride 0.9% 100 ml Med 05/24/16 15:41 Active IV PRN Sodium Chloride 0.9% Flush [Normal Saline 10ml Flush] Med 05/24/16 15:41 Active 10 - 50 ml IV PRN PRN Sodium Chloride 0.9% Flush [Normal Saline 10ml Flush] Med 05/24/16 17:00 Active 10 ml IV Q8HR Vancomycin HCl 1.75 g Med 05/26/16 00:00 Active Sodium Chloride 0.9% 500 ml IV Q8H Intake and Output 05/28/16 05/29/16 05/30/16 23:59 23:59 23:59 Intake Total 6284 1008 4918 Output Total 3651 6418 450 Balance 1397 -0743 1328 General: Afebrile - Right Upper Extremity Incision: Dressing Clean/Dry/Intact, No Dressing Saturated, No Shadow Drainage, No Drainage, No Erythema, No Rash Motor: Extensor Pollicis Longus: 4/5, Finger Flexors: 4/5, Finger Extensors: 4/5 , Wrist Flexors: 4/5, Wrist Extensors: 4/5 Gross Sensation to Light Touch: Present: Median Nerve, Ulnar Nerve, Radial Nerve Capillary Refill: < 3 Seconds - Right Lower Extremity Incision: Dressing Clean/Dry/Intact Motor: Extensor Hallucis Longus: 4/5, Tibialis Anterior: 4/5, Gastrocnemius: 4/5 , Peroneals: 4/5 Gross Sensation to Light Touch: Present: Deep Peroneal Nerve, Superficial Peroneal Nerve Capillary Refill: < 3 Seconds (Patient has packing in the right knee. Dressing is dry and in place.) - Problems (1) Septic arthritis of shoulder, right Qualifiers: Septic arthritis organism: staphylococcal Qualifier Code: (M00.011) Staphylococcal arthritis, right shoulder Status: Acute (2) Abscess of right leg excluding foot Status: Acute - Disposition 55 yr old male active heroin user POD#1 with bacteremia with signs of a persistent right leg abscess and septic arthritis in the right shoulder NWB on the RUE. Sling for comfort. NPO with IVF. Cont with vanco for MRSa with PICC. Dispo will have to consider IV abx for 6 weeks. Will plan on removing packing later today and do wet to dry dressing changes on the right knee.
[2016-05-30] MEDS: FUROSEMIDE 20 MG/2 ML VIAL IV SCH (08:50)
[2016-05-30] MEDS: METHADONE 10 MG TABLET PO SCH ×2 (08:50→21:15)
[2016-05-30] MEDS: ATENOLOL 50 MG TABLET PO SCH (08:50)
[2016-05-30] MEDS: Magnesium Oxide 400 MG TABLET PO SCH ×2 (08:50→21:15)
[2016-05-30] MEDS: ALBUTEROL/IPRATROPIUM 2.5/0.5 MG 3 ML/EACH DOSE NEB SCH ×4 (09:00→20:24)
[2016-05-30] MEDS ORDERED: MAGNESIUM SULFATE 2 G/50 ML 2 G in Premix (Water) 50 ml 1 EACH IV ONE (11:00)
--- NOTE | 2016-05-30 14:16 | PDOC43 ---
- Subjective Chief Complaint: Leg infection, fever, cough, SOB Patient awake and alert, talkative. Pain controlled as long as he does not move. Tolerating diet, not ambulatory. He says he is not very interested in methadone and plans on going home resuming heroin use Subjective: Reports Pain Tolerable, Reports Tolerating Diet Well, Reports Adequate Oral Intake, Reports Urinating Without Difficulty, Reports Other ( shoulder, knee pain), Denies Shortness of Breath, Denies Cough, Denies Chest Pain, Denies Abdominal Pain, Denies Nausea, Denies Vomiting - Objective Vital Signs Temperature 99.2 F 05/30/16 11:37 Pulse Rate 82 05/30/16 12:15 Respiratory Rate 20 05/30/16 12:15 Blood Pressure 106/69 05/30/16 11:37 O2 Saturation by Pulse Oximetry 90 05/30/16 12:15 Oxygen Delivery Method Room Air Oxygen Flow Rate 0 Intake and Output 05/28/16 05/29/16 05/30/16 23:59 23:59 23:59 Intake Total 6297 2135 1778 Output Total 3650 3625 450 Balance 2647 -1490 1328 General: Alert, Oriented x3, Cooperative, No Acute Distress HEENT: Atraumatic, PERRLA, EOMI, Mucous membr. moist/pink Lungs: Clear to Auscultation Bilaterally, Normal Air Movement, Other (no crackle or wheeze) Cardiovascular: Regular Rate and Rhythm, Normal S1, Normal S2 Abdomen: Soft, Mild Distention, No Rigid, No Tenderness, No Rebounding Rectal Exam: Guaiac Negative Extremities: Edema, Other (R shoulder in sling, R knee bandaged), No Cyanosis, No Tenderness Neurological: Normal Speech Psych/Mental Status: Normal Mood Laboratory 05/30/16 06:30 05/30/16 06:30 05/30/16 06:30 RBC 4.18 L MCHC 31.5 L RDW 15.3 H Anion Gap 6 L Estimated GFR 140 H Calcium 7.6 L Magnesium 1.8 L % Immature Granulocyt 1.4 H Current Medications: Current meds reviewed in EMR. - Problems: Assessment/Plan (1) Septic arthritis of shoulder, right Qualifiers: Septic arthritis organism: staphylococcal Qualifier Code: (M00.011) Staphylococcal arthritis, right shoulder Status: Acute Priority: High Assessment/Plan: Appreciate Dr Puskas consult, arthocentesis growing GPC almost certanly MRSA- washout procedure ID recommends LIZ, continue vancomycin use. Do not use linezolid for longer than 2 weeks due to side effects (2) Cellulitis and abscess of lower extremity Status: AcuteAssessment/Plan: At IVDA injection site on medial R knee. Improved today. No evidence of deeper abcess or nec fac. All prelim blood cx growing MRSA, urine and abscess both growing MRSA. Cont. vanco. Repeat daily blood Cx until negative ID recommends continued vancomycin. Do not use linezolid longer than 2 weeks due to side effects (3) Severe sepsis Status: AcuteAssessment/Plan: Associated with above. Resolved. (4) Hyponatremia Status: AcuteAssessment/Plan: Presumed d/t above. Osmolalities C/W SIADH. Improving, supportive care. Fluid restriction helped but doubt terminal supervisor compliance, chronic liver disease may be playing a role-relax fluid restriction, repeat Lasix 20mg IV times one. Improved, monitor (5) Thrombocytopenia Status: AcuteAssessment/Plan: Unclear etiology- severe sepsis vs IVDA vs DIC vs chronic liver disease. Follow closely, supportive care. No DVT prophylaxis. Improving (6) Anasarca Status: AcuteAssessment/Plan: will give Lasix (7) Hypertension Qualifiers: Hypertension type: other secondary hypertension Qualifier Code: (I15.8 ) Other secondary hypertension Status: AcuteAssessment/Plan: improved with atenolol, cont. methadone (8) Heroin abuse Status: ChronicAssessment/Plan: Long standing heavy use. SW consult. Methadone for withdrawal sx. Patient states that he plans to remain abstinent and enroll in methadone maintenance program. Patient pledges not to use PICC if treated as an outpatient, but risk management concerns about outpatient treatment-working with care management and risk management for safe discharge plan Told today that he plans to return to heroin use upon discharge, says will not use PICC however. Team meeting this afternoon to help with DC planning. (9) Hepatitis C Qualifiers: Viral hepatitis chronicity: unspecified Status: ChronicAssessment/Plan: Unknown details. Supportive care. (10) Endocarditis Qualifiers: Endocarditis type: unspecified Chronicity: unspecified Qualifier Code: (I38) Endocarditis, valve unspecified Status: SuspectedAssessment/Plan : Suspected Infective Endocarditis based on multiple minor criteria. TTE showed no vegetations. Blood cx results as above. D/W ID, will likely need 4-6 weeks of Vancomycin, need to TEECHO is unclear, but would be recommended for persistently positive blood CX, advised to repeat Blood Cx daily until negative. (11) Hypomagnesemia Status: AcuteAssessment/Plan: multifactorial including current medical situation, poor nutritional status Replace VTE Prophylaxis: [facility] measures only concern for use of heparin analogues due to thrombocytopenia Disposition: Exploring options, patient would like to go to [place] infusion center and be treated as an outpatient. Care management and risk management working on safe treatment plan. Will need 6 weeks of IV Vancomycin unless ID recommends shorter course
--- NOTE | 2016-05-30 14:51 | PDOC36 ---
Provider Note Subject: Meeting held with care management, social work, nursing to review patient's ongoing care. With his use of heroin and requirement of 6-8 weeks of Abx treatment, he is at very high risk for improper use of the PICC for IVDA. Finance and risk management have reviewed the case and the patient will remain hospitalized for the duration of treatment and then possible DC to [facility] for the last 20 days of treatment. If the patient does not agree with this plan, then he will be provided with instructions on leaving AMA and the PICC will be removed.
[2016-05-30] MEDS ORDERED: ALTEPLASE 2 MG VIAL IV ONE (16:09)
[2016-05-30] MEDS: PANTOPRAZOLE 40 MG TABLET DR PO SCH (16:59)
[2016-05-30] MEDS ORDERED: WATER FOR INJECTION STERILE IV ONE ×2 (17:00→17:05)
[2016-05-30] MEDS ORDERED: ALTEPLASE IV ONE ×2 (17:00→17:05)
[2016-05-30] MEDS: HYDROCODONE/ACETAMINOPHEN 5/325MG TABLET PO PRN (21:15)
[2016-05-31] MEDS: VANCOMYCIN HCL 1.75 G in SODIUM CHLORIDE 0.9% 500 ML IV SCH (04:03)
[2016-05-31] MEDS: HYDROCODONE/ACETAMINOPHEN 5/325MG TABLET PO PRN (05:41)
[2016-05-31 06:03] LABS: BASO % 0.5 % (0.2-1.0); EOS # 0.2 (0.0-0.5); EOS % 1.7 % (0.9-2.9); HEMOGLOBIN 11.8 gm/l (14.0-18.0); IMM NEUT # 0.1 K/mm3 (0-0.2); IMM NEUT% 1.2 % (0-1); LYMPH # 1.5 (1.0-4.8); MEAN CELL VOLUME 88.1 fl (80.0-94.0); MEAN CORPUSCULAR HEMOGLOBIN 28.1 pg (27.0-31.0); MEAN CORPUSCULAR HGB CONC 31.9 g/dl (33.0-37.0); MEAN PLATELET VOLUME 11.5 fl (7.4-10.4); MONO # 0.9 (0.0-0.8); NEUT % 69.6 % (43-75); PLATELET COUNT 128 K/mm3 (130-400); RED CELL DISTRIBUTION WIDTH 15.5 % (11.5-14.5)
[2016-05-31 06:25] LABS: MAGNESIUM 1.8 mg/dL (1.9-2.7)
[2016-05-31] MEDS: ALBUTEROL/IPRATROPIUM 2.5/0.5 MG 3 ML/EACH DOSE NEB SCH ×4 (07:29→21:16)
[2016-05-31] MEDS ORDERED: OXYCODONE HCL 5 MG TABLET ONE (08:11)
[2016-05-31] MEDS: METHADONE 10 MG TABLET PO SCH ×2 (08:17→21:09)
[2016-05-31] MEDS: Magnesium Oxide 400 MG TABLET PO SCH ×2 (08:17→21:09)
[2016-05-31] MEDS: FUROSEMIDE 20 MG/2 ML VIAL IV SCH (08:17)
[2016-05-31] MEDS: OXYCODONE HCL 5 MG TABLET PO PRN ×3 (08:17→21:08)
[2016-05-31] MEDS: ATENOLOL 50 MG TABLET PO SCH (08:17)
--- NOTE | 2016-05-31 08:45 | PDOC43 ---
- Subjective Subjective: Denies Pain Tolerable (Pt still having pain in shoulder states it is improved. He is doing well in terms of right knee pain), Denies Chest Pain, Denies Shortness of Breath, Denies Nausea, Denies Vomiting, Denies Fever - Objective Vital Signs Temperature 98 F 05/31/16 08:10 Pulse Rate 84 05/31/16 08:10 Respiratory Rate 20 05/31/16 08:10 Blood Pressure 130/96 05/31/16 08:10 O2 Saturation by Pulse Oximetry 94 05/31/16 08:10 Oxygen Delivery Method Room Air Oxygen Flow Rate 0 Laboratory 05/31/16 05:40 05/31/16 05:40 05/31/16 05:40 RBC 4.20 L MCHC 31.9 L RDW 15.5 H Anion Gap 7 L Estimated GFR 117 H Calcium 8.0 L Magnesium 1.8 L % Immature Granulocyt 1.2 H Active Medication Orders Category Date Time Status Acetaminophen [Tylenol] Med 05/29/16 19:53 Active 650 mg PO Q6H PRN Albuterol Sulf Neb 2.5mg/3ml [Ventolin Inhalation Med 05/24/16 15:43 Active Solution (Dose)] 2.5 mg NEB Q2H PRN Albuterol/Ipratropium 2.5/0.5 [Duoneb] Med 05/25/16 20:00 Active 3 ml NEB 08,12,16,20 Atenolol [Tenormin] Med 05/27/16 11:45 Active 50 mg PO DAILY Bisacodyl [Dulcolax] Med 05/24/16 15:41 Active 10 mg GA DAILY PRN Bisacodyl [Dulcolax] Med 05/24/16 15:41 Active 5 mg PO DAILY PRN Diphenhydramine HCl [Benadryl] Med 05/29/16 19:53 Active 25 - 50 mg IV Q6H PRN Furosemide [Lasix] Med 05/29/16 10:15 Active 20 mg IV DAILY Lidocaine 1% (Pres Free) Med 05/25/16 12:42 Active 2 - 5 ml PF X1 PRN Lip [place] [Blistex] Med 05/24/16 15:41 Active 1 each TP PRN PRN Lorazepam [Ativan] Med 05/25/16 12:42 Active 0.5 - 1 mg IV X1 PRN Lorazepam [Ativan] Med 05/24/16 18:47 Active 1 mg IV Q6H PRN Magnesium Hydroxide [Milk of Magnesia] Med 05/24/16 15:41 Active 30 ml PO DAILY PRN Magnesium Oxide Med 05/26/16 12:00 Active 800 mg PO BID Menthol/Cetylpyridinium [Cepacol] Med 05/24/16 15:41 Active 1 each PO PRN PRN Methadone Med 05/29/16 21:00 Active 20 mg PO Q12H Ondansetron 4 mg/2ml Vial [Zofran] Med 05/29/16 19:53 Active 4 mg IV Q6H PRN Oxycodone HCl [Roxicodone] Med 05/31/16 08:04 Active 5 - 10 mg PO Q4H PRN Pantoprazole Sodium [Protonix] Med 05/30/16 14:30 Active 40 mg PO Q24H Promethazine HCl [Phenergan] 12.5 mg Med 05/24/16 18:50 Active Sodium Chloride 0.9% 50 ml IV Q4H Sodium Chloride 0.9% 100 ml Med 05/24/16 15:41 Active IV PRN Sodium Chloride 0.9% Flush [Normal Saline 10ml Flush] Med 05/24/16 15:41 Active 10 - 50 ml IV PRN PRN Sodium Chloride 0.9% Flush [Normal Saline 10ml Flush] Med 05/24/16 17:00 Active 10 ml IV Q8HR Vancomycin HCl 1.75 g Med 05/26/16 00:00 Active Sodium Chloride 0.9% 500 ml IV Q8H Intake and Output 05/29/16 05/30/16 05/31/16 23:59 23:59 23:59 Intake Total 2135 5573 1970 Output Total 1415 5240 850 Balance -1490 2823 1120 General: Afebrile - Right Upper Extremity Incision: Dressing Clean/Dry/Intact Motor: Extensor Pollicis Longus: 5/5, Finger Flexors: 5/5, Finger Extensors: 5/5 , Wrist Flexors: 5/5, Wrist Extensors: 5/5, Intrinsics: 5/5 Gross Sensation to Light Touch: Present: Median Nerve, Ulnar Nerve, Radial Nerve Capillary Refill: < 3 Seconds (Passive motion of the right shoulder to 90 degrees of flexion and abduction. Still painful but improved for the patient. Arthroscopic sutures are in placed and covered with bandaids) - Right Lower Extremity Incision: Dressing Clean/Dry/Intact (2+ pitting edema), No Erythema (No purulence expressed from right knee wound. New DSD applied) Motor: Extensor Hallucis Longus: 5/5, Tibialis Anterior: 5/5, Gastrocnemius: 5/5 , Peroneals: 5/5 Gross Sensation to Light Touch: Present: Deep Peroneal Nerve, Superficial Peroneal Nerve Capillary Refill: < 3 Seconds - Problems (1) Septic arthritis of shoulder, right Qualifiers: Septic arthritis organism: staphylococcal Qualifier Code: (M00.011) Staphylococcal arthritis, right shoulder Status: Acute (2) Abscess of right leg excluding foot Status: Acute - Disposition 55 yr old male active heroin user POD#2 with bacteremia with signs of a persistent right leg abscess and septic arthritis in the right shoulder NWB on the RUE. Sling for comfort. Cont with vanco for MRSa with PICC. Would recommend for PT to work on Passive and active-assisted ROM of the right shoulder as the pain will allow. Pt should ambulate to help with right lower extremity edema. No signs of a POSITIVE samreen's sign. Dressing changed today and packing removed. A new DSD applied. No signs of purulence appreciated.
--- NOTE | 2016-05-31 12:42 | PDOC43 ---
- Subjective Chief Complaint: Septic knee, shoulder, MRSA Patient reports feeling ok. Walking some. Pain improving, but shoulder still quite sore. Not dyspneic. - Objective Vital Signs Temperature 98 F 05/31/16 08:10 Pulse Rate 84 05/31/16 08:10 Respiratory Rate 20 05/31/16 08:10 Blood Pressure 130/96 05/31/16 08:10 O2 Saturation by Pulse Oximetry 94 05/31/16 08:10 Oxygen Delivery Method Room Air Oxygen Flow Rate 0 Vital Signs Last 12 Hours Temp Pulse Resp BP Pulse Ox 05/31/16 08:10 98 F 84 20 130/96 94 05/31/16 07:30 74 18 90 05/31/16 01:30 97.9 F 76 20 126/84 94 Intake and Output 05/29/16 05/30/16 05/31/16 23:59 23:59 23:59 Intake Total 2135 5573 1970 Output Total 3625 2750 850 Balance -1490 2823 1120 General: Alert, Cooperative, No Acute Distress HEENT: Atraumatic Lungs: Clear to Auscultation Bilaterally Cardiovascular: Regular Rate and Rhythm, No Murmur Abdomen: Soft, Normal Bowel Sounds, Non-Distended Extremities: Edema (2+ bilat lower extr.), Other (Dressing on R knee, flexed > 90 degrees. R arm in sling. Sl puffy hand.) Skin: Normal Color Neurological: Normal Speech Psych/Mental Status: Normal Affect Laboratory 05/31/16 05:40 05/31/16 05:40 05/31/16 05:40 RBC 4.20 L MCHC 31.9 L RDW 15.5 H Anion Gap 7 L Estimated GFR 117 H Calcium 8.0 L Magnesium 1.8 L % Immature Granulocyt 1.2 H Current Medications: Current meds reviewed in EMR. Active Medications Acetaminophen (Tylenol) 650 mg PO Q6H PRN PRN Reason: Mild Pain Or Temp > 100.5 F Last Admin: 05/29/16 20:46 Dose: 650 mg Albuterol Sulfate (Ventolin Inhalation Solution (Dose)) 2.5 mg NEB Q2H PRN PRN Reason: Wheezing Last Admin: 05/25/16 19:46 Dose: 2.5 mg Albuterol/Ipratropium (Duoneb) 3 ml NEB 08,12,16,20 MIR Last Admin: 05/31/16 07:29 Dose: 3 ml Atenolol (Tenormin) 50 mg PO DAILY [facility] Last Admin: 05/31/16 08:17 Dose: 50 mg Benzocaine/Menthol (Cepacol) 1 each PO PRN PRN PRN Reason: Sore Throat Bisacodyl (Dulcolax) 10 mg HI DAILY PRN PRN Reason: Constipation Bisacodyl (Dulcolax) 5 mg PO DAILY PRN PRN Reason: Constipation Diphenhydramine HCl (Benadryl) 25 - 50 mg IV Q6H PRN PRN Reason: Severe Itching Furosemide (Lasix) 20 mg IV DAILY [facility] Last Admin: 05/31/16 08:17 Dose: 20 mg Sodium Chloride (Sodium Chloride 0.9%) 100 mls @ 25 mls/hr IV PRN PRN PRN Reason: Flush Last Admin: 05/29/16 12:35 Dose: 25 mls/hr Promethazine HCl 12.5 mg/ (Sodium Chloride) 50.5 mls @ 200 mls/hr IV Q4H PRN PRN Reason: Nausea/Vomiting Vancomycin HCl 1.75 g/ Sodium (Chloride) 535 mls @ 267.5 mls/hr IV Q8H [facility] Last Admin: 05/31/16 04:03 Dose: 267.5 mls/hr Lidocaine HCl (Lidocaine 1% (Pres Free)) 2 - 5 ml PF X1 PRN PRN Reason: Pain from PICC line placement Last Admin: 05/25/16 14:00 Dose: 3 ml Lorazepam (Ativan) 1 mg IV Q6H PRN PRN Reason: Agitation Last Admin: 05/27/16 00:57 Dose: 1 mg Lorazepam (Ativan) 0.5 - 1 mg IV X1 PRN PRN Reason: Anxiety during PICC Placement Last Admin: 05/25/16 13:38 Dose: 0.5 mg Magnesium Hydroxide (Milk Of Magnesia) 30 ml PO DAILY PRN PRN Reason: Constipation Magnesium Oxide (Magnesium Oxide) 800 mg PO BID [facility] Last Admin: 05/31/16 08:17 Dose: 800 mg Methadone HCl (Methadone) 20 mg PO Q12H [facility] Last Admin: 05/31/16 08:17 Dose: 20 mg Ondansetron HCl (Zofran) 4 mg IV Q6H PRN PRN Reason: Nausea/Vomiting Oxycodone HCl (Roxicodone) 5 - 10 mg PO Q4H PRN PRN Reason: Pain Last Admin: 05/31/16 08:17 Dose: 10 mg Pantoprazole Sodium (Protonix) 40 mg PO Q24H [facility] Last Admin: 05/30/16 16:59 Dose: 40 mg Petrolatum/Paraffin/Mineral Oil (Blistex) 1 each TP PRN PRN PRN Reason: Dry and/or chapped lips Sodium Chloride (Normal Saline 10ml Flush) 10 - 50 ml IV PRN PRN PRN Reason: IV Flush Last Admin: 05/30/16 04:32 Dose: 30 ml Sodium Chloride (Normal Saline 10ml Flush) 10 ml IV Q8HR [facility] Last Admin: 05/31/16 08:16 Dose: 10 ml - Problems: Assessment/Plan (1) Cellulitis and abscess of lower extremity Status: AcuteAssessment/Plan: At IVDA injection site on medial R knee, but also shoulder. Clinically Improved after I/D, tx. No evidence of deeper abcess or necrotizing fasciitis. All prelim blood cx growing MRSA, urine and abscess both growing MRSA. Cont. vanco. Last positive blood culture 05/25, but shoulder from 05/28 was positive for MRSA. ID recommends continued vancomycin. Do not use linezolid longer than 2 weeks due to side effects (2) Septic arthritis of shoulder, right Qualifiers: Septic arthritis organism: staphylococcal Qualifier Code: (M00.011) Staphylococcal arthritis, right shoulder Status: AcuteAssessment/Plan: Appreciate Dr Gonzales consult, arthocentesis growing MRSA, s/p washout. ID recommends LIZ (as would strongly suspect endocarditis as underlying factor for MRSA in blood, urine, 2 sites), continue vancomycin use. Do not use linezolid for longer than 2 weeks due to side effects (3) Hypertension Qualifiers: Hypertension type: other secondary hypertension Qualifier Code: (I15.8 ) Other secondary hypertension Status: AcuteAssessment/Plan: improved with atenolol, cont. methadone (4) Hyponatremia Status: ResolvedAssessment/Plan: Resolved. (5) Thrombocytopenia Status: ResolvedAssessment/Plan: REsolved. VTE Prophylaxis: mech measures only concern for use of heparin analogues due to thrombocytopenia Disposition: Anticipating need for 6 weeks of IV Vancomycin; with initial stay here for 3 wk , then to SNF to follow Came in 05/24
--- NOTE | 2016-05-31 13:17 | CONS ---
Hubert LI : 1960 [id number] ORTHOPEDIC CONSULTATION DATE OF ADMISSION: May 24, 2016 DATE OF CONSULTATION: May 29, 2016 CHIEF COMPLAINT: "My right leg is infected and I think that I have a right shoulder infection." HISTORY OF PRESENT ILLNESS: The patient is a 55-year-old left-hand dominant male who is an intravenous drug abuser of heroin who was admitted to [facility] on May 24, 2016 with a five-day history of gradually worsening shortness of breath and weakness and signs of a right posterior medial knee abscess. The patient has been admitted and been treated with intravenous antibiotics. He has been bacteremic and there was concerned that he potentially has seeded his right shoulder with bacteria concerning for a septic arthritis. He was able to move his shoulder normally. He denies any pain in this side. He has had no other advanced imaging of this right shoulder. He states that besides his obvious problems with his heroin addiction he has been in fairly good health. He reports that he lives in [place]. Yesterday the patient having fluoroscopic guided shoulder aspiration that grew out Gram-positive cocci. His blood cultures have grown out Gram-positive cocci resistant to Oxacillin or community acquired MRSA. Dr. Zimmerman or an ultrasound of the right shoulder on May 26, 2016 that did not show a large effusion of the shoulder, however this recent shoulder aspiration does indicate that the patient's right shoulder has been seeded with bacteria. The patient does tell me that he does have problems with hepatitis C. He thinks he probably contracted this from his drug use. PAST SURGICAL HISTORY: He has had a right knee arthroscopy in the past as well as a tonsillectomy, they were removed as a child. ALLERGIES: He reports no allergies. MEDICATIONS: He takes no medications. SOCIAL HISTORY: He lives in [place] with his . He is a regular smoker of cigarettes for the past 20 to 30 years. He does not use alcohol. He regularly uses heroin about two or three times a day. PHYSICAL EXAMINATION: GENERAL: The patient is alert and oriented times three, no acute distress. He is saturating fine on room air. The patient is able to answer my questions appropriately. He reports that he still has some drainage from his right posterior medial knee abscess. HEENT: EOMI bilaterally NECK: Is supple. HEART: Regular rate. LUNGS: Clear to auscultation bilaterally. ABDOMEN: Soft, NT and non-distended. Physical exam of the right lower extremity demonstrates an area that is approximately 6 x 8 cm. It is an abscess that is draining. The dressing is saturated. I did not remove this today. He has a 2+ DP pulse. He has gross sensation to light touch in the distribution of DP, SP, MP, LP, sural and saphenous nerves. He has a 5/5 strength of his EHL, tibialis anterior, gastroc and peroneals on the right. Passive motion of the right shoulder causes pain. I can forward flex him to 90 degrees causing severe discomfort, abduct him to 90 degrees in his right shoulder. He has full function of his right hand. He has 5/5 strength of his EPL, finger flexors, finger extensors, wrist flexors, extensors and intrinsics. He has a 2+ radial pulse. I do not see any large effusion of the shoulder itself. LABORATORIES: The patient's basic metabolic panel shows a sodium of 133, potassium 3.3, carbon dioxide 99, bicarbonate 26, BUN 12, creatinine 0.6. A white blood cell count of 11.8, this is down from 14.9. Hematocrit of 39.6, platelets of 114. INR is 1.25. His last vancomycin trough was 18.5. Blood culture taken out of the right shoulder shows 1+ Gram-positive cocci and 3+ white blood cells, I was not able to find a cell count for the patient. The patient does have Staphylococcus aureus, which is resistant to oxacillin or MRSA growing out from his blood. RADIOGRAPHS: No x-rays of the right shoulder have been obtained. ASSESSMENT AND PLAN: The patient is a 55-year-old male with signs of septic arthritis in his right shoulder as well as an abscess on this right leg. I told him that my recommendation would be a surgical I&D of the right leg abscess as well as an arthroscopic irrigation and extensive debridement of the right shoulder to help avoid chondrolysis of his cartilage. I attempted to answer his questions regarding this procedure. I talked to the patient at length regarding the risks as well as benefits of this procedure. He signed the consent form. We will plan on having Ancef tv production assistant. I attempted to answer all of his questions today. We will plan on moving forward with the surgery later in the day and I asked the patient to remain nothing orally until that time. Job [id number] CC: [facility]
[2016-05-31] MEDS: PANTOPRAZOLE 40 MG TABLET DR PO SCH (14:48)
--- NOTE | 2016-05-31 15:32 | OP ---
Hubert LI : 1960 [id number] DATE OF PROCEDURE: May 29, 2016 PREOPERATIVE DIAGNOSES: Right shoulder septic arthritis and right medial knee abscess. POSTOPERATIVE DIAGNOSES: Right shoulder septic arthritis and right medial knee abscess. PROCEDURE: RIGHT SHOULDER ARTHROSCOPIC BICEPS TENOTOMY AND EXTENSIVE ARTHROSCOPIC DEBRIDEMENT, AND RIGHT KNEE ABSCESS IRRIGATION AND DEBRIDEMENT. SURGEON: Jamie Gonzales M.D. HIGH LIGHTER: Emi Castrejon ANESTHESIA: General. FINDINGS: The patient's right knee and right shoulder were evaluated. I did take a culture from right knee. There was a small amount of anup pus was seen in this area. It was sent for aerobic and anaerobic cultures. This was irrigated with 2 L of normal saline. Iodoform packing was then placed covered by a 4 x 4 and ABD and an RIMA bandage. I did a shoulder surgery involving two arthroscopic portals in the right shoulder. I did not find any anup purulence in the shoulder but there was hyperemic synovium. The patient had a 90% tear of the biceps and so an arthroscopic biceps tenotomy was performed along with an extensive debridement of the synovium in the right shoulder. CONDITION: The patient was extubated with stable vital signs and transferred to the ICU where he is being monitored. COMPLICATIONS: None. INTRAVENOUS FLUIDS: 900 mL of Lactate Ringer's. URINE OUTPUT: 0 mL ESTIMATED BLOOD LOSS: 20 mL SPECIMENS: A knee swab was sent for aerobic and anaerobic cultures. TOURNIQUET TIME: N/A IMPLANTS: None. DRAINS: N/A PLAN: The patient will be weight bearing as tolerated on the right lower extremity, nonweightbearing on the right upper extremity with a sling for comfort. I would recommend continued vancomycin for MRSA and aspirin for DVT prophylaxis. INDICATIONS: The patient is a 55-year-old male who was admitted to the medicine service on May 25, 2016 regarding his shortness of breath and an infection on the inside of his right knee. The patient had swelling and a draining abscess. He has been bacteremic and he has had increasing shoulder pain with concerns of a right shoulder septic arthritis. I was consulted by the medical team for evaluation. His clinical exam was concerning for septic arthritis as well as persist leg infection. I thought the patient would be best treated by an arthroscopic I&D of the right shoulder and procedures as indicated along with a possible right knee abscess I&D. Prior to the surgery I spoke to him about the risks and benefits of nonoperative and surgical treatment. We reviewed the perioperative complications which could occur such as persistent infection and pain. The patient states that he understood these risks and was ready to proceed. PROCEDURE DESCRIPTION: The patient was seen in the preoperative area where we confirmed that the right side was the correct side. He is currently on vancomycin but 2 g of Ancef was ordered for preoperative antibiotics. I confirmed that the consent matched our proposed procedure which was a right shoulder arthroscopic debridement and a right knee abscess irrigation and debridement. I told the patient that while in his shoulder if there were any other problems that needed to be addressed that I would do that at this time, but I did not plan to place any implants. The patient was in agreement with this plan. The patient was then seen by the anesthesia team who evaluated the patient and thought that a PICC line would be appropriate for use for the surgery. At this point I marked the patient's right knee and right shoulder, he was taken back to the operating room and placed on a standard operating room table. There a safety belt was placed and he was intubated without difficulty. Next, the patient was kept in the supine position. A nonsterile tourniquet was placed on the right thigh and the patient had his right lower extremity prepped and draped with a Betadine scrub and then prep. Once this have dried we performed a final time out confirming that the right side was the correct side and that our planned procedure was an I&D of this right knee medial abscess followed by a separate right shoulder arthroscopy. I asked that the Ancef be held until cultures were obtained and we were ready to begin. At this point I used a small curette to remove some granular tissue. I was able to express a small amount of pus and with a swab this was taken for culture. Next, I used a Ragnell as I lifted up the skin and bluntly palpated the medial aspect of the knee as I irrigated this region. I could not express any large abscess underneath. Once this was completed I packed this area with iodoform dressing covered with a 4 x 4 and ABD. The RIMA bandage then covered the leg. With the right knee abscess I&D completed and then turned my attention to the shoulder. The patient was already supine on the beanbag. I moved into a left lateral decubitus position with and axillary roll in place making sure that all bony prominences were well padded. With the beanbag elevated the bed was then turned. The safety belt was placed and I made sure that it down peroneal nerve up peroneal were all well padded. At this point the patient's right upper extremity was prepped and draped in sterile fashion, first with a chlorhexidine scrub and then prep and he was placed in balance suspension. Although a final time out had previously been before. I just confirmed that the right side was the correct side and that our planned procedure was an arthroscopic I&D for this patient's septic arthritis. I marked bony landmarks and then placed a spinal needle with a 30 mL syringe in through the posterior skin. I could not obtain any gross purulence. Next, I made an incision and placed my scope trocar into the glenohumeral. It was extensive amount of synovium which was hyperemic in the shoulder. I then used my spinal needle to find the rotator interval and made an incision and placed an anterior cannula. Once this was performed I could better evaluate the shoulder. There was extensive hyperemia. No anup purulence but there was some cloudy fluid. The patient had a tear that was approximately 90% of the long head of the biceps. It was medially subluxated. I clot that the patient would be best served with a biceps tenotomy. This was performed arthroscopically. I then performed an arthroscopic debridement of the synovium. Care was taken not to pick the rotator cuff. On the articular surface this appeared to be intact and completed. There were no signs of any bursal sided problems. After this extensive debridement was completed I confirmed good hemostasis while using the arthroscopic shaver as well as the ArthroCare wand. We were then ready to complete the surgery. I confirmed good hemostasis and we were ready to close. The arthroscopic incisions were closed with simple Nylon sutures. The patient had a Xeroform, 4 x 4, ABD and a cryo-cuff placed on his right shoulder. He was awoken without difficulty and transferred to the ICU where he continues to be monitored by the medical team. The patient most likely will need to six weeks of intravenous antibiotics to treat his septic arthritis and we will continue to monitor him. My plan is on postop day number two to potentially remove the Iodoform packing and continue with the dry dressings for his right knee abscess. Job [id number] CC: [facility]
[2016-05-31] MEDS: ACETAMINOPHEN 325 MG TABLET PO PRN (16:53)
[2016-05-31] MEDS: VANCOMYCIN HCL 2.25 G in SODIUM CHLORIDE 0.9% 500 ML IV SCH (21:08)
[2016-06-01 06:53] LABS: ABSOLUTE NEUTROPHIL COUNT 8.4 K/mm3 (1.8-7.7); BASO # 0.1 K/mm3 (0.0-0.2); BASO % 0.5 % (0.2-1.0); EOS # 0.1 (0.0-0.5); EOS % 0.5 % (0.9-2.9); HEMATOCRIT 38.5 % (32.0-52.0); HEMOGLOBIN 12.3 gm/l (14.0-18.0); IMM NEUT% 0.4 % (0-1); LYMPH # 0.9 (1.0-4.8); LYMPH % 8.9 % (15-45); MEAN CELL VOLUME 87.7 fl (80.0-94.0); MEAN CORPUSCULAR HGB CONC 31.9 g/dl (33.0-37.0); MEAN PLATELET VOLUME 11.4 fl (7.4-10.4); MONO # 0.7 (0.0-0.8); MONO % 6.6 % (4-12); NEUT % 83.1 % (43-75); PLATELET COUNT 119 K/mm3 (130-400); RED CELL DISTRIBUTION WIDTH 15.4 % (11.5-14.5)
[2016-06-01 07:10] LABS: ALB/GLOB RATIO 0.4 (>1.0); ALBUMIN 2.3 gm/dL (3.5-5.7)
[2016-06-01] MEDS: LACTATED RINGERS 1,000 ML IV SCH (07:12)
[2016-06-01] MEDS ORDERED: PUMP TUBING ONE (07:49)
[2016-06-01] MEDS: SODIUM CHLORIDE 0.9% 100 ML IV PRN (08:09)
[2016-06-01] MEDS: VANCOMYCIN HCL 2.25 G in SODIUM CHLORIDE 0.9% 500 ML IV SCH ×2 (08:10→20:01)
[2016-06-01] MEDS: ACETAMINOPHEN 325 MG TABLET PO PRN (08:10)
[2016-06-01] MEDS: ALBUTEROL/IPRATROPIUM 2.5/0.5 MG 3 ML/EACH DOSE NEB SCH ×4 (08:34→20:43)
[2016-06-01] MEDS: ATENOLOL 50 MG TABLET PO SCH (08:42)
[2016-06-01] MEDS: METHADONE 10 MG TABLET PO SCH ×2 (08:43→20:02)
[2016-06-01] MEDS: Magnesium Oxide 400 MG TABLET PO SCH ×2 (08:43→20:02)
[2016-06-01] MEDS: FUROSEMIDE 20 MG/2 ML VIAL IV SCH (08:43)
[2016-06-01] MEDS: PANTOPRAZOLE 40 MG TABLET DR PO SCH (08:43)
--- NOTE | 2016-06-01 11:40 | PDOC43 ---
- Subjective Subjective: Reports Pain Tolerable (Pt states his knee continues to feel better. He bumped his right shoulder on the bed. It is still feeling better with active motion), Denies Chest Pain, Denies Shortness of Breath, Denies Nausea, Denies Vomiting, Denies Fever - Objective Vital Signs Temperature 98 F 06/01/16 08:12 Pulse Rate 88 06/01/16 08:34 Respiratory Rate 18 06/01/16 08:34 Blood Pressure 144/95 06/01/16 08:12 O2 Saturation by Pulse Oximetry 99 06/01/16 08:34 Oxygen Delivery Method Room Air Oxygen Flow Rate 0 Laboratory 06/01/16 06:10 06/01/16 06:10 06/01/16 05/31/16 06:10 10:55 RBC 4.39 L MCHC 31.9 L RDW 15.4 H Estimated GFR 117 H Calcium 8.0 L Total Bilirubin 1.1 H AST 41 H Alkaline Phosphatase 119 H Albumin 2.3 L Globulin 5.5 H Albumin/Globulin Ratio 0.4 L Vancomycin Trough 23.9 H Active Medication Orders Category Date Time Status Acetaminophen [Tylenol] Med 05/29/16 19:53 Active 650 mg PO Q6H PRN Albuterol Sulf Neb 2.5mg/3ml [Ventolin Inhalation Med 05/24/16 15:43 Active Solution (Dose)] 2.5 mg NEB Q2H PRN Albuterol/Ipratropium 2.5/0.5 [Duoneb] Med 05/25/16 20:00 Active 3 ml NEB 08,12,16,20 Atenolol [Tenormin] Med 05/27/16 11:45 Active 50 mg PO DAILY Bisacodyl [Dulcolax] Med 05/24/16 15:41 Active 10 mg CO DAILY PRN Bisacodyl [Dulcolax] Med 05/24/16 15:41 Active 5 mg PO DAILY PRN Diphenhydramine HCl [Benadryl] Med 05/29/16 19:53 Active 25 - 50 mg IV Q6H PRN Furosemide [Lasix] Med 05/29/16 10:15 Active 20 mg IV DAILY Lip [place] [Blistex] Med 05/24/16 15:41 Active 1 each TP PRN PRN Lorazepam [Ativan] Med 05/24/16 18:47 Active 1 mg IV Q6H PRN Magnesium Hydroxide [Milk of Magnesia] Med 05/24/16 15:41 Active 30 ml PO DAILY PRN Magnesium Oxide Med 05/26/16 12:00 Active 800 mg PO BID Menthol/Cetylpyridinium [Cepacol] Med 05/24/16 15:41 Active 1 each PO PRN PRN Methadone Med 05/29/16 21:00 Active 20 mg PO Q12H Ondansetron 4 mg/2ml Vial [Zofran] Med 05/29/16 19:53 Active 4 mg IV Q6H PRN Oxycodone HCl [Roxicodone] Med 05/31/16 08:04 Active 5 - 10 mg PO Q4H PRN Pantoprazole Sodium [Protonix] Med 06/01/16 09:00 Active 40 mg PO DAILY Promethazine HCl [Phenergan] 12.5 mg Med 05/24/16 18:50 Active Sodium Chloride 0.9% 50 ml IV Q4H Sodium Chloride 0.9% 100 ml Med 05/24/16 15:41 Active IV PRN Sodium Chloride 0.9% Flush [Normal Saline 10ml Flush] Med 05/24/16 15:41 Active 10 - 50 ml IV PRN PRN Sodium Chloride 0.9% Flush [Normal Saline 10ml Flush] Med 05/24/16 17:00 Active 10 ml IV Q8HR Vancomycin HCl 2.25 g Med 05/31/16 20:00 Active Sodium Chloride 0.9% 500 ml IV Q12H Intake and Output 05/30/16 05/31/16 06/01/16 23:59 23:59 23:59 Intake Total 5797 3721 3155 Output Total 9421 3752 4375 Balance 8925 -58 -6929 General: Afebrile - Right Upper Extremity Incision: Dressing Clean/Dry/Intact, Well Approximated, Other (1+ hand swelling due to dependent position of the right hand) Motor: Extensor Pollicis Longus: 5/5, Finger Flexors: 5/5, Finger Extensors: 5/5 , Wrist Flexors: 5/5, Wrist Extensors: 5/5, Intrinsics: 5/5, Biceps: 4/5, Triceps: 4/5, Deltoid: 4/5 Gross Sensation to Light Touch: Present: Median Nerve, Ulnar Nerve, Radial Nerve Capillary Refill: < 3 Seconds (Minimal pain with passive motion. AROM from 90 degrees to FF to 90 degrees of abduction) - Problems (1) Septic arthritis of shoulder, right Qualifiers: Septic arthritis organism: staphylococcal Qualifier Code: (M00.011) Staphylococcal arthritis, right shoulder Status: Acute (2) Abscess of right leg excluding foot Status: Acute - Disposition 55 yr old male active heroin user POD#3 with bacteremia with signs of a persistent right leg abscess and septic arthritis in the right shoulder NWB on the RUE. Sling for comfort. Cont with vanco for MRSa with PICC. Would recommend for PT to work on Passive and active-assisted ROM of the right shoulder as the pain will allow. Pt should ambulate to help with right lower extremity edema. ASA for DVT prophylaxis. Dispo plan is for the patient to stay in the hospital for 3 weeks and then continue 3 weeks of IV vanco at a intermediate facility
--- NOTE | 2016-06-01 15:48 | PDOC43 ---
- Subjective Chief Complaint: Suspected endocarditis, septic shoulder, MRSA, IVDA Subjective: Reports Pain Tolerable, Reports Tolerating Diet Well, Reports Urinating Without Difficulty, Denies Shortness of Breath, Denies Cough, Denies Chest Pain, Denies Abdominal Pain, Denies Nausea, Denies Vomiting, Denies Fever , Denies Chills - Objective Vital Signs Temperature 98 F 06/01/16 08:12 Pulse Rate 76 06/01/16 13:01 Respiratory Rate 18 06/01/16 13:01 Blood Pressure 144/95 06/01/16 08:12 O2 Saturation by Pulse Oximetry 97 06/01/16 13:01 Oxygen Delivery Method Room Air Oxygen Flow Rate 0 Intake and Output 05/31/16 06/01/16 06/02/16 06:59 06:59 06:59 Intake Total 5731 4078 830 Output Total 3150 5780 2125 Balance 7009 -5283 -6641 General: Alert, Oriented x3, Cooperative, No Acute Distress HEENT: Atraumatic Lungs: Clear to Auscultation Bilaterally Cardiovascular: Regular Rate and Rhythm, No Murmur Abdomen: Soft, Normal Bowel Sounds, Non-Distended, No Tenderness Extremities: Edema (2-3 + edema B. Petichia resolved.) Wound: Dressing Clean/Dry/Intact Laboratory 06/01/16 06:10 06/01/16 06:10 Current Medications: Current meds reviewed in EMR. - Problems: Assessment/Plan (1) Endocarditis Qualifiers: Endocarditis type: unspecified Chronicity: unspecified Qualifier Code: (I38) Endocarditis, valve unspecified Status: SuspectedAssessment/Plan : Suspected Infective Endocarditis based on multiple minor criteria and persistently positive blood cx (major criteria). TTE showed no vegetations. Blood cx results + for MRSA on 05/24 and 05/25 and negative thereafter. D/W ID- 6 weeks of Vancomycin. (2) Septic arthritis of shoulder, right Qualifiers: Septic arthritis organism: staphylococcal Qualifier Code: (M00.011) Staphylococcal arthritis, right shoulder Status: AcuteAssessment/Plan: Appreciate Dr Gonzales consult, arthocentesis growing MRSA, s/p washout. Vanco as above. (3) Cellulitis and abscess of lower extremity Status: AcuteAssessment/Plan: At IVDA injection site on medial R knee. Clinically Improved after I/D. Con't wound care. No evidence of deeper abcess or necrotizing fasciitis. Blood cx growing MRSA, urine and abscess both growing MRSA. Cont. vanco. . (4) Severe sepsis Status: AcuteAssessment/Plan: At admit and resolved by hospital day 1. Organ dysfunction manifested by platelets <100 at admit. (5) Heroin abuse Status: ChronicAssessment/Plan: Long standing heavy use. consult. Methadone for withdrawal sx. High risk to use if discharged- plan for 6 weeks vanco therapy in hospital and possibly SNF. (6) Hepatitis C Qualifiers: Viral hepatitis chronicity: unspecified Status: ChronicAssessment/Plan: Unknown details. Supportive care. (7) Anasarca Status: AcuteAssessment/Plan: Lasix. VTE Prophylaxis: [facility] measures only concern for use of heparin analogues due to thrombocytopenia Disposition: Anticipating need for 6 weeks of IV Vancomycin; with initial stay here for 3 wk , then to SNF to follow Came in 05/24
[2016-06-02 07:40] LABS: VANCOMYCIN TROUGH 19.9 ug/ml (5.0-10.0)
--- NOTE | 2016-06-02 07:53 | PDOC43 ---
- Subjective Chief Complaint: Suspected endocarditis, septic shoulder, MRSA, IVDA No new c/o's. Feeling good. Subjective: Reports Pain Tolerable, Reports Tolerating Diet Well, Reports Adequate Oral Intake, Denies Shortness of Breath, Denies Cough, Denies Chest Pain, Denies Abdominal Pain, Denies Nausea, Denies Vomiting, Denies Fever, Denies Chills - Objective Vital Signs Temperature 98.2 F 06/02/16 07:22 Pulse Rate 84 06/02/16 07:22 Respiratory Rate 18 06/02/16 07:22 Blood Pressure 140/90 06/02/16 07:22 O2 Saturation by Pulse Oximetry 95 06/02/16 07:22 Oxygen Delivery Method Room Air Oxygen Flow Rate 0 Intake and Output 06/01/16 06/02/16 06/03/16 06:59 06:59 06:59 Intake Total 4078 3775 Output Total 5249 5660 Balance -6932 -5337 General: Alert, Oriented x3, Cooperative, No Acute Distress HEENT: Atraumatic Lungs: Clear to Auscultation Bilaterally Cardiovascular: Regular Rate and Rhythm, No Murmur Abdomen: Soft, Normal Bowel Sounds, Non-Distended, No Tenderness Extremities: Edema, Normal Pulses Current Medications: Current meds reviewed in EMR. - Problems: Assessment/Plan (1) Endocarditis Qualifiers: Endocarditis type: unspecified Chronicity: unspecified Qualifier Code: (I38) Endocarditis, valve unspecified Status: SuspectedAssessment/Plan : Suspected Infective Endocarditis based on multiple minor criteria and persistently positive blood cx (major criteria). TTE showed no vegetations. Blood cx results + for MRSA on 05/24 and 05/25 and negative thereafter. D/W ID- 6 weeks of Vancomycin. (2) Septic arthritis of shoulder, right Qualifiers: Septic arthritis organism: staphylococcal Qualifier Code: (M00.011) Staphylococcal arthritis, right shoulder Status: AcuteAssessment/Plan: Appreciate Dr Gonzales consult, arthocentesis growing MRSA, s/p washout. Vanco as above. (3) Cellulitis and abscess of lower extremity Status: AcuteAssessment/Plan: At IVDA injection site on medial R knee. Clinically Improved after I/D. Con't wound care. No evidence of deeper abcess or necrotizing fasciitis. Blood cx growing MRSA, urine and abscess both growing MRSA. Cont. vanco. . (4) Heroin abuse Status: ChronicAssessment/Plan: Long standing heavy use. consult. Methadone for withdrawal sx. High risk to use if discharged- plan for 6 weeks vanco therapy in hospital and possibly SNF. (5) Hepatitis C Qualifiers: Viral hepatitis chronicity: unspecified Status: ChronicAssessment/Plan: Unknown details. Supportive care. (6) Anasarca Status: AcuteAssessment/Plan: Lasix. VTE Prophylaxis: [facility] measures only concern for use of heparin analogues due to thrombocytopenia Disposition: Anticipating need for 6 weeks of IV Vancomycin; with initial stay here for 3 wk , then to SNF to follow Came in 05/24
[2016-06-02] MEDS: VANCOMYCIN HCL 2.25 G in SODIUM CHLORIDE 0.9% 500 ML IV SCH ×2 (08:10→20:18)
[2016-06-02] MEDS: ALBUTEROL/IPRATROPIUM 2.5/0.5 MG 3 ML/EACH DOSE NEB SCH ×4 (08:30→19:38)
[2016-06-02] MEDS: PANTOPRAZOLE 40 MG TABLET DR PO SCH (09:03)
[2016-06-02] MEDS: FUROSEMIDE 20 MG/2 ML VIAL IV SCH (09:03)
[2016-06-02] MEDS: METHADONE 10 MG TABLET PO SCH ×2 (09:03→20:18)
[2016-06-02] MEDS: Magnesium Oxide 400 MG TABLET PO SCH ×2 (09:04→20:19)
[2016-06-02] MEDS: ATENOLOL 50 MG TABLET PO SCH (09:04)
[2016-06-02] MEDS ORDERED: PUMP TUBING ONE (20:28)
[2016-06-03] MEDS: ALBUTEROL/IPRATROPIUM 2.5/0.5 MG 3 ML/EACH DOSE NEB SCH ×4 (08:37→20:04)
[2016-06-03] MEDS: FUROSEMIDE 20 MG/2 ML VIAL IV SCH (09:22)
[2016-06-03] MEDS: PANTOPRAZOLE 40 MG TABLET DR PO SCH (09:22)
[2016-06-03] MEDS: METHADONE 10 MG TABLET PO SCH ×2 (09:23→20:58)
[2016-06-03] MEDS: Magnesium Oxide 400 MG TABLET PO SCH ×2 (09:23→20:57)
[2016-06-03] MEDS: ATENOLOL 50 MG TABLET PO SCH (09:23)
[2016-06-03] MEDS ORDERED: ALTEPLASE 2 MG VIAL IV ONE (09:45)
--- NOTE | 2016-06-03 10:24 | PDOC43 ---
- Subjective Chief Complaint: Suspected endocarditis, septic shoulder, MRSA, IVDA Subjective: Reports Tolerating Diet Well, Reports Urinating Without Difficulty, Denies Shortness of Breath, Denies Chest Pain, Denies Fever - Objective Vital Signs Temperature 98.6 F 06/03/16 07:00 Pulse Rate 88 06/03/16 07:00 Respiratory Rate 18 06/03/16 07:00 Blood Pressure 144/96 06/03/16 07:00 O2 Saturation by Pulse Oximetry 96 06/03/16 08:00 Oxygen Delivery Method Room Air Oxygen Flow Rate 0 Intake and Output 06/02/16 06/03/16 06/04/16 06:59 06:59 06:59 Intake Total 3775 3645 Output Total 5624 5364 Balance -1885 -2580 General: Alert, Oriented x3, Cooperative, No Acute Distress HEENT: Mucous membr. moist/pink Lungs: Clear to Auscultation Bilaterally Cardiovascular: Regular Rate and Rhythm Abdomen: Soft, Normal Bowel Sounds, Non-Distended, No Tenderness Extremities: Edema (chronic and 2 plus) Skin: Erythema (resolved in rt leg) Laboratory 06/01/16 06:10 06/02/16 07:00 Current Medications: Current meds reviewed in EMR. - Problems: Assessment/Plan (1) Cellulitis and abscess of lower extremity Status: AcuteAssessment/Plan: At IVDA injection site on medial R knee. Clinically Improved after I/D. Con't wound care. No evidence of deeper abcess or necrotizing fasciitis. Blood cx growing MRSA, urine and abscess both growing MRSA. Cont. vanco. . (2) Heroin abuse Status: ChronicAssessment/Plan: Long standing heavy use. SW consult. Methadone for withdrawal sx and chronic pain. High risk to use if discharged- plan for 6 weeks vanco therapy in hospital and possibly SNF. (3) Hepatitis C Qualifiers: Viral hepatitis chronicity: unspecified Status: ChronicAssessment/Plan: Unknown details. Supportive care. (4) Endocarditis Qualifiers: Endocarditis type: unspecified Chronicity: unspecified Qualifier Code: (I38) Endocarditis, valve unspecified Status: SuspectedAssessment/Plan : Suspected Infective Endocarditis based on multiple minor criteria and persistently positive blood cx (major criteria). TTE showed no vegetations. Blood cx results + for MRSA on 05/24 and 05/25 and negative thereafter. D/W ID- 6 weeks of Vancomycin. (5) Anasarca Status: AcuteAssessment/Plan: Lasix. (6) Hypertension Qualifiers: Hypertension type: other secondary hypertension Qualifier Code: (I15.8 ) Other secondary hypertension Status: AcuteAssessment/Plan: improved with atenolol, cont. methadone (7) Septic arthritis of shoulder, right Qualifiers: Septic arthritis organism: staphylococcal Qualifier Code: (M00.011) Staphylococcal arthritis, right shoulder Status: AcuteAssessment/Plan: Appreciate Dr Gonzales consult, arthocentesis growing MRSA, s/p washout. Vanco as above. VTE Prophylaxis: [facility] measures only concern for use of heparin analogues due to thrombocytopenia Disposition: Anticipating need for 6 weeks of IV Vancomycin; with newly discovered medicaid coverage, SNF stay being explored
--- NOTE | 2016-06-03 11:41 | RAD ---
PORTABLE CHEST RADIOGRAPH HISTORY: PICC line placement. Frontal portable chest radiograph dated 06/03/2016. COMPARISON: 05/25/2016 FINDINGS: PICC LINE: Interval retraction, tip projecting over the superior vena cava. FOCAL AIRSPACE OPACITY: Interval decrease in airspace abnormality at the right lung base. PLEURAL EFFUSION: None. CARDIOMEDIASTINAL SILHOUETTE: Nonenlarged. PNEUMOTHORAX: None identified. OSSEOUS STRUCTURES: No grossly destructive lesions. IMPRESSION: Interval retraction of PICC line, tip projecting over superior vena cava. Minor residua of right basilar density, atelectasis and pneumonia are possible. Findings discussed with Dr. Zimmerman of the hospitalist clinical service on 06/03/2016 at 1137 hours.
[2016-06-03] MEDS: OXYCODONE HCL 5 MG TABLET PO PRN ×2 (13:14→20:58)
[2016-06-03] MEDS ORDERED: PUMP TUBING ONE (13:45)
[2016-06-03] MEDS: SODIUM CHLORIDE 0.9% 100 ML IV PRN (13:52)
[2016-06-03] MEDS: VANCOMYCIN HCL 2.25 G in SODIUM CHLORIDE 0.9% 500 ML IV SCH (13:52)
[2016-06-04] MEDS: VANCOMYCIN HCL 2.25 G in SODIUM CHLORIDE 0.9% 500 ML IV SCH ×2 (02:05→13:55)
[2016-06-04 05:59] LABS: CALCIUM 8.2 mg/dL (8.6-10.3)
[2016-06-04] MEDS: OXYCODONE HCL 5 MG TABLET PO PRN ×3 (08:02→20:46)
[2016-06-04] MEDS: Magnesium Oxide 400 MG TABLET PO SCH ×2 (08:02→20:47)
[2016-06-04] MEDS: METHADONE 10 MG TABLET PO SCH ×2 (08:03→20:46)
[2016-06-04] MEDS: PANTOPRAZOLE 40 MG TABLET DR PO SCH (08:03)
[2016-06-04] MEDS: FUROSEMIDE 40 MG TABLET PO SCH (08:03)
[2016-06-04] MEDS: ATENOLOL 50 MG TABLET PO SCH (08:03)
[2016-06-04] MEDS: ALBUTEROL/IPRATROPIUM 2.5/0.5 MG 3 ML/EACH DOSE NEB SCH ×4 (08:38→22:15)
--- NOTE | 2016-06-04 09:44 | PDOC43 ---
- Subjective Chief Complaint: Suspected endocarditis, septic shoulder, MRSA, IVDA Subjective: Reports Pain Tolerable, Reports Tolerating Diet Well, Denies Shortness of Breath, Denies Chest Pain, Denies Fever - Objective Vital Signs Temperature 98.3 F 06/04/16 07:15 Pulse Rate 78 06/04/16 08:40 Respiratory Rate 20 06/04/16 08:40 Blood Pressure 136/82 06/04/16 07:15 O2 Saturation by Pulse Oximetry 95 06/04/16 08:40 Oxygen Delivery Method Room Air Oxygen Flow Rate 0 Intake and Output 06/03/16 06/04/16 06/05/16 06:59 06:59 06:59 Intake Total 3645 2550 Output Total 6231 5000 Balance -2580 -2450 General: Alert, Oriented x3, Cooperative, No Acute Distress HEENT: Mucous membr. moist/pink Lungs: Clear to Auscultation Bilaterally Cardiovascular: Regular Rate and Rhythm Abdomen: Soft, Normal Bowel Sounds, Non-Distended, No Tenderness Extremities: Edema (stable, right shoulder with some improving ROM) Laboratory 06/01/16 06:10 06/04/16 05:15 06/04/16 05:15 Anion Gap 6 L Estimated GFR 117 H Calcium 8.2 L Current Medications: Current meds reviewed in EMR. - Problems: Assessment/Plan (1) Cellulitis and abscess of lower extremity Status: AcuteAssessment/Plan: At IVDA injection site on medial R knee. Clinically Improved after I/D. Con't wound care. No evidence of deeper abcess or necrotizing fasciitis. Blood cx growing MRSA, urine and abscess both growing MRSA. Cont. vanco. . (2) Heroin abuse Status: ChronicAssessment/Plan: Long standing heavy use. SW consult. Methadone for withdrawal sx and chronic pain. High risk to use if discharged- plan for 6 weeks vanco therapy in hospital and probably SNF. (3) Hepatitis C Qualifiers: Viral hepatitis chronicity: unspecified Status: ChronicAssessment/Plan: Unknown details. Supportive care. (4) Endocarditis Qualifiers: Endocarditis type: unspecified Chronicity: unspecified Qualifier Code: (I38) Endocarditis, valve unspecified Status: SuspectedAssessment/Plan : Suspected Infective Endocarditis based on multiple minor criteria and persistently positive blood cx (major criteria). TTE showed no vegetations. Blood cx results + for MRSA on 05/24 and 05/25 and negative thereafter. D/W ID- 6 weeks of Vancomycin. (5) Anasarca Status: AcuteAssessment/Plan: Lasix. (6) Hypertension Qualifiers: Hypertension type: other secondary hypertension Qualifier Code: (I15.8 ) Other secondary hypertension Status: AcuteAssessment/Plan: improved with atenolol, cont. methadone (7) Septic arthritis of shoulder, right Qualifiers: Septic arthritis organism: staphylococcal Qualifier Code: (M00.011) Staphylococcal arthritis, right shoulder Status: AcuteAssessment/Plan: Appreciate Dr Gonzales consult, arthocentesis growing MRSA, s/p washout. Vanco as above. VTE Prophylaxis: [facility] measures only concern for use of heparin analogues due to thrombocytopenia Disposition: Anticipating need for 6 weeks of IV Vancomycin; with newly discovered medicaid coverage, SNF stay being explored
[2016-06-04] MEDS: SODIUM CHLORIDE 0.9% 100 ML IV PRN (15:10)
[2016-06-04] MEDS ORDERED: DIPHENHYDRAMINE HCL 25 MG CAPSULE PO PRN (15:24)
[2016-06-05] MEDS ORDERED: PUMP TUBING ONE ×2 (01:13→13:58)
[2016-06-05] MEDS: VANCOMYCIN HCL 2.25 G in SODIUM CHLORIDE 0.9% 500 ML IV SCH ×2 (01:27→14:05)
[2016-06-05] MEDS: ALBUTEROL/IPRATROPIUM 2.5/0.5 MG 3 ML/EACH DOSE NEB SCH (07:53)
[2016-06-05] MEDS: ATENOLOL 50 MG TABLET PO SCH (08:08)
[2016-06-05] MEDS: Magnesium Oxide 400 MG TABLET PO SCH ×2 (08:09→21:51)
[2016-06-05] MEDS: PANTOPRAZOLE 40 MG TABLET DR PO SCH (08:09)
[2016-06-05] MEDS: METHADONE 10 MG TABLET PO SCH ×2 (08:10→21:51)
[2016-06-05] MEDS: FUROSEMIDE 40 MG TABLET PO SCH (08:10)
[2016-06-05] MEDS ORDERED: ALBUTEROL/IPRATROPIUM 2.5/0.5 MG 3 ML/EACH DOSE NEB PRN (09:42)
--- NOTE | 2016-06-05 11:16 | PDOC43 ---
- Subjective Chief Complaint: Suspected endocarditis, septic shoulder, MRSA, IVDA Subjective: Reports Tolerating Diet Well, Denies Shortness of Breath, Denies Chest Pain, Denies Fever - Objective Vital Signs Temperature 98.5 F 06/05/16 07:33 Pulse Rate 82 06/05/16 07:53 Respiratory Rate 18 06/05/16 07:53 Blood Pressure 142/80 06/05/16 07:33 O2 Saturation by Pulse Oximetry 97 06/05/16 07:53 Oxygen Delivery Method Room Air Oxygen Flow Rate 0 Intake and Output 06/04/16 06/05/16 06/06/16 06:59 06:59 06:59 Intake Total 2550 4948 Output Total 5000 4400 Balance -2450 548 General: Alert, Oriented x3, Cooperative, No Acute Distress HEENT: Mucous membr. moist/pink Lungs: Clear to Auscultation Bilaterally Cardiovascular: Regular Rate and Rhythm Abdomen: Soft, Normal Bowel Sounds, Non-Distended, No Tenderness Extremities: Edema (stable), Other (working on ROM of right shoulder) Skin: Warm, Dry, Erythema (resolved and wound is minimal at medial right knee) Laboratory 06/01/16 06:10 06/04/16 05:15 Current Medications: Current meds reviewed in EMR. - Problems: Assessment/Plan (1) Cellulitis and abscess of lower extremity Status: AcuteAssessment/Plan: At IVDA injection site on medial R knee. Clinically Improved after I/D. Con't wound care. No evidence of deeper abcess or necrotizing fasciitis. Blood cx growing MRSA, urine and abscess both growing MRSA. Cont. vanco. . (2) Heroin abuse Status: ChronicAssessment/Plan: Long standing heavy use. SW consult. Methadone for withdrawal sx and chronic addiction. High risk to use if discharged- plan for 6 weeks vanco therapy in hospital, unlikely to be able to get Methadone at SNF facility (3) Hepatitis C Qualifiers: Viral hepatitis chronicity: unspecified Status: ChronicAssessment/Plan: Unknown details. Supportive care. (4) Endocarditis Qualifiers: Endocarditis type: unspecified Chronicity: unspecified Qualifier Code: (I38) Endocarditis, valve unspecified Status: SuspectedAssessment/Plan : Suspected Infective Endocarditis based on multiple minor criteria and persistently positive blood cx (major criteria). TTE showed no vegetations. Blood cx results + for MRSA on 05/24 and 05/25 and negative thereafter. D/W ID- 6 weeks of Vancomycin. (5) Anasarca Status: AcuteAssessment/Plan: Lasix. (6) Hypertension Qualifiers: Hypertension type: other secondary hypertension Qualifier Code: (I15.8 ) Other secondary hypertension Status: AcuteAssessment/Plan: improved with atenolol, cont. methadone (7) Septic arthritis of shoulder, right Qualifiers: Septic arthritis organism: staphylococcal Qualifier Code: (M00.011) Staphylococcal arthritis, right shoulder Status: AcuteAssessment/Plan: Appreciate Dr Gonzales consult, arthocentesis growing MRSA, s/p washout. Vanco as above. (8) UTI (urinary tract infection), bacterial Status: AcuteAssessment/Plan: due to MRSA, likely involving both kidneys given hematogenous spread of infection-adequately treated VTE Prophylaxis: [facility] measures only concern for use of heparin analogues due to thrombocytopenia Disposition: Anticipating need for 6 weeks of IV Vancomycin; anticipate will complete treatment in hospital
[2016-06-05] MEDS: SODIUM CHLORIDE 0.9% 100 ML IV PRN (14:05)
[2016-06-06] MEDS: VANCOMYCIN HCL 2.25 G in SODIUM CHLORIDE 0.9% 500 ML IV SCH ×2 (07:16→14:59)
[2016-06-06] MEDS: ATENOLOL 50 MG TABLET PO SCH (09:12)
[2016-06-06] MEDS: FUROSEMIDE 40 MG TABLET PO SCH (09:12)
[2016-06-06] MEDS: Magnesium Oxide 400 MG TABLET PO SCH ×2 (09:12→22:18)
[2016-06-06] MEDS: METHADONE 10 MG TABLET PO SCH ×2 (09:12→22:18)
[2016-06-06] MEDS: PANTOPRAZOLE 40 MG TABLET DR PO SCH (09:12)
[2016-06-06 14:03] LABS: VANCOMYCIN TROUGH 25.7 ug/ml (5.0-10.0)
--- NOTE | 2016-06-06 14:09 | PDOC43 ---
- Subjective Subjective: Reports Pain Tolerable - Objective Vital Signs Temperature 98.6 F 06/06/16 07:23 Pulse Rate 98 06/06/16 07:23 Respiratory Rate 16 06/06/16 07:48 Blood Pressure 127/97 06/06/16 07:23 O2 Saturation by Pulse Oximetry 96 06/06/16 07:23 Oxygen Delivery Method Room Air Oxygen Flow Rate 0 Laboratory 06/01/16 06:10 Active Medication Orders Category Date Time Status Acetaminophen [Tylenol] Med 05/29/16 19:53 Active 650 mg PO Q6H PRN Albuterol Sulf Neb 2.5mg/3ml [Ventolin Inhalation Med 05/24/16 15:43 Active Solution (Dose)] 2.5 mg NEB Q2H PRN Albuterol/Ipratropium 2.5/0.5 [Duoneb] Med 06/05/16 09:42 Active 3 ml NEB Q6H PRN Atenolol [Tenormin] Med 05/27/16 11:45 Active 50 mg PO DAILY Bisacodyl [Dulcolax] Med 05/24/16 15:41 Active 10 mg [place] DAILY PRN Bisacodyl [Dulcolax] Med 05/24/16 15:41 Active 5 mg PO DAILY PRN Diphenhydramine HCl [Benadryl] Med 05/29/16 19:53 Active 25 - 50 mg IV Q6H PRN Diphenhydramine HCl [Benadryl] Med 06/04/16 15:24 Active 25 - 50 mg PO QID PRN Furosemide [Lasix] Med 06/04/16 09:00 Active 40 mg PO DAILY Lip [place] [Blistex] Med 05/24/16 15:41 Active 1 each TP PRN PRN Magnesium Hydroxide [Milk of Magnesia] Med 05/24/16 15:41 Active 30 ml PO DAILY PRN Magnesium Oxide Med 05/26/16 12:00 Active 800 mg PO BID Menthol/Cetylpyridinium [Cepacol] Med 05/24/16 15:41 Active 1 each PO PRN PRN Methadone Med 05/29/16 21:00 Active 20 mg PO Q12H Ondansetron 4 mg/2ml Vial [Zofran] Med 05/29/16 19:53 Active 4 mg IV Q6H PRN Oxycodone HCl [Roxicodone] Med 05/31/16 08:04 Active 5 - 10 mg PO Q4H PRN Pantoprazole Sodium [Protonix] Med 06/01/16 09:00 Active 40 mg PO DAILY Promethazine HCl [Phenergan] 12.5 mg Med 05/24/16 18:50 Active Sodium Chloride 0.9% 50 ml IV Q4H Sodium Chloride 0.9% 100 ml Med 05/24/16 15:41 Active IV PRN Sodium Chloride 0.9% Flush [Normal Saline 10ml Flush] Med 05/24/16 15:41 Active 10 - 50 ml IV PRN PRN Sodium Chloride 0.9% Flush [Normal Saline 10ml Flush] Med 05/24/16 17:00 Active 10 ml IV Q8HR Vancomycin HCl 2.25 g Med 05/31/16 20:00 Active Sodium Chloride 0.9% 500 ml IV Q12H Intake and Output 06/04/16 06/05/16 06/06/16 23:59 23:59 23:59 Intake Total 4205 4093 1000 Output Total 4700 4000 2075 Balance -495 93 -1075 General: No Acute Distress Lungs: Normal Air Movement Psych/Mental Status: Normal Affect, Other - Left Upper Extremity Incision: Well Approximated (sutures will be removed today by staff sonographer) Motor: Extensor Pollicis Longus: 5/5, Finger Flexors: 5/5, Finger Extensors: 5/5 , Wrist Flexors: 5/5, Wrist Extensors: 5/5, Intrinsics: 5/5, Biceps: 5/5, Triceps: 5/5, Deltoid: 5/5 Gross Sensation to Light Touch: Present: Median Nerve, Ulnar Nerve, Radial Nerve , Axillary Nerve Capillary Refill: < 3 Seconds Motion: PROM right shoulder FF 0-100, pain, ABD 0-90, pain, ER 0-20, pain - Problems (1) Cellulitis and abscess of lower extremity Status: Acute (2) Septic arthritis of shoulder, right Qualifiers: Septic arthritis organism: staphylococcal Qualifier Code: (M00.011) Staphylococcal arthritis, right shoulder Status: Acute - Disposition 55 yr old male active heroin user POD#4 with bacteremia with signs of a persistent right leg abscess and septic arthritis in the right shoulder NWB on the RUE. Sling for comfort. Cont with vanco for MRSa with PICC. Would recommend for PT to work on Passive and active-assisted ROM of the right shoulder as the pain will allow. Pt should ambulate to help with right lower extremity edema. ASA for DVT prophylaxis. Dispo plan is for the patient to stay in the hospital for 6 weeks for his Vanco since SNF likely will not accept him while he is taking Methadone. Continue wet to dry dressing changes to right medial thigh wound and monitor granulation healing by secondary intention.
--- NOTE | 2016-06-06 14:15 | PDOC43 ---
- Subjective Chief Complaint: Suspected endocarditis, septic shoulder, MRSA, IVDA Patient reports feeling ok. Ankles swelling some, but this is not new. No new c/ o. Stitches to be removed today. - Objective Vital Signs Temperature 98.6 F 06/06/16 07:23 Pulse Rate 98 06/06/16 07:23 Respiratory Rate 16 06/06/16 07:48 Blood Pressure 127/97 06/06/16 07:23 O2 Saturation by Pulse Oximetry 96 06/06/16 07:23 Oxygen Delivery Method Room Air Oxygen Flow Rate 0 Vital Signs Last 12 Hours Temp Pulse Resp BP Pulse Ox 06/06/16 07:48 16 06/06/16 07:23 98.6 F 98 16 127/97 96 Intake and Output 06/04/16 06/05/16 06/06/16 23:59 23:59 23:59 Intake Total 4205 4093 1000 Output Total 4700 4000 2075 Balance -495 93 -1075 General: Alert, Cooperative, No Acute Distress (just bored.) Lungs: Clear to Auscultation Bilaterally (mostly clear bilat.) Cardiovascular: Regular Rate and Rhythm, Murmur (difficult to auscultate) Abdomen: Soft, Non-Distended Extremities: Edema (2-3+ pitting edema bilat) Skin: Normal Color Neurological: Normal Speech Psych/Mental Status: Normal Affect Laboratory 06/01/16 06:10 Current Medications: Current meds reviewed in EMR. Active Medications Acetaminophen (Tylenol) 650 mg PO Q6H PRN PRN Reason: Mild Pain Or Temp > 100.5 F Last Admin: 06/01/16 08:10 Dose: 650 mg Albuterol Sulfate (Ventolin Inhalation Solution (Dose)) 2.5 mg NEB Q2H PRN PRN Reason: Wheezing Last Admin: 05/25/16 19:46 Dose: 2.5 mg Albuterol/Ipratropium (Duoneb) 3 ml NEB Q6H PRN PRN Reason: Wheezing or Dyspnea Atenolol (Tenormin) 50 mg PO DAILY [facility] Last Admin: 06/06/16 09:12 Dose: 50 mg Benzocaine/Menthol (Cepacol) 1 each PO PRN PRN PRN Reason: Sore Throat Bisacodyl (Dulcolax) 10 mg VT DAILY PRN PRN Reason: Constipation Bisacodyl (Dulcolax) 5 mg PO DAILY PRN PRN Reason: Constipation Diphenhydramine HCl (Benadryl) 25 - 50 mg IV Q6H PRN PRN Reason: Severe Itching Diphenhydramine HCl (Benadryl) 25 - 50 mg PO QID PRN PRN Reason: Itching Last Admin: 06/04/16 15:41 Dose: 50 mg Furosemide (Lasix) 40 mg PO DAILY [facility] Last Admin: 06/06/16 09:12 Dose: 40 mg Sodium Chloride (Sodium Chloride 0.9%) 100 mls @ 25 mls/hr IV PRN PRN PRN Reason: Flush Last Admin: 06/05/16 14:05 Dose: 25 mls/hr Promethazine HCl 12.5 mg/ (Sodium Chloride) 50.5 mls @ 200 mls/hr IV Q4H PRN PRN Reason: Nausea/Vomiting Vancomycin HCl 2.25 g/ Sodium (Chloride) 545 mls @ 218 mls/hr IV Q12H [facility] Last Admin: 06/06/16 07:16 Dose: Not Given Magnesium Hydroxide (Milk Of Magnesia) 30 ml PO DAILY PRN PRN Reason: Constipation Magnesium Oxide (Magnesium Oxide) 800 mg PO BID [facility] Last Admin: 06/06/16 09:12 Dose: 800 mg Methadone HCl (Methadone) 20 mg PO Q12H [facility] Last Admin: 06/06/16 09:12 Dose: 20 mg Ondansetron HCl (Zofran) 4 mg IV Q6H PRN PRN Reason: Nausea/Vomiting Oxycodone HCl (Roxicodone) 5 - 10 mg PO Q4H PRN PRN Reason: Pain Last Admin: 06/04/16 20:46 Dose: 10 mg Pantoprazole Sodium (Protonix) 40 mg PO DAILY [facility] Last Admin: 06/06/16 09:12 Dose: 40 mg Petrolatum/Paraffin/Mineral Oil (Blistex) 1 each TP PRN PRN PRN Reason: Dry and/or chapped lips Sodium Chloride (Normal Saline 10ml Flush) 10 - 50 ml IV PRN PRN PRN Reason: IV Flush Last Admin: 06/05/16 14:05 Dose: 10 ml Sodium Chloride (Normal Saline 10ml Flush) 10 ml IV Q8HR [facility] Last Admin: 06/06/16 09:12 Dose: 10 ml - Problems: Assessment/Plan (1) Cellulitis and abscess of lower extremity Status: AcuteAssessment/Plan: At IVDA injection site on medial R knee. Clinically Improved after I/D. Con't wound care. No evidence of deeper abcess or necrotizing fasciitis. Blood cx growing MRSA, urine and abscess both growing MRSA. Blood culture 06/01 was negative. Cont. vanco. . (2) Septic arthritis of shoulder, right Qualifiers: Septic arthritis organism: staphylococcal Qualifier Code: (M00.011) Staphylococcal arthritis, right shoulder Status: AcuteAssessment/Plan: Appreciate Dr Gonzales consult, arthocentesis growing MRSA, s/p washout. Vanco as above. (3) Hypertension Qualifiers: Hypertension type: other secondary hypertension Qualifier Code: (I15.8 ) Other secondary hypertension Status: AcuteAssessment/Plan: improved with atenolol, cont. methadone. (4) Anasarca Status: ChronicAssessment/Plan: Lasix, encourage elevation of legs (5) Heroin abuse Status: ChronicAssessment/Plan: Long standing heavy use. consult. Methadone for withdrawal sx and chronic addiction. High risk to use if discharged- plan for 6 weeks vanco therapy in hospital, unlikely to be able to get Methadone at SNF facility VTE Prophylaxis: [facility] measures only concern for use of heparin analogues due to thrombocytopenia Disposition: Anticipating need for 6 weeks of IV Vancomycin; anticipate will complete treatment in hospital
[2016-06-06] MEDS: ACETAMINOPHEN 325 MG TABLET PO PRN (20:09)
[2016-06-06] MEDS: VANCOMYCIN HCL 1.5 G in SODIUM CHLORIDE 0.9% 500 ML IV SCH (22:17)
[2016-06-07] MEDS: VANCOMYCIN HCL 1.5 G in SODIUM CHLORIDE 0.9% 500 ML IV SCH ×2 (01:51→13:08)
--- NOTE | 2016-06-07 08:20 | RAD ---
Exam: Portable chest COMPARISON: 06/03/2016, 05/25/2016 and 05/24/2016 INDICATION: Recheck of left PICC status status post pulled on by patient. FINDINGS: A semierect AP portable view of the chest at 2349 hours demonstrates that the left upper extremity PICC has pulled back slightly, and is now overlying the proximal SVC. Lung volumes remain low. There is increasing right basilar opacity, similar to that seen on 05/25/2016 but increased since the most recent exam of 06/03/2016. Left lung remains clear. Cardiac silhouette remains within normal limits. IMPRESSION: 1. The left upper extremity PICC has pulled back slightly, but the tip overlies the proximal SVC. 2. Recurrent right basilar opacity; whether this reflects atelectasis or pneumonia is uncertain.
[2016-06-07] MEDS: FUROSEMIDE 40 MG TABLET PO SCH (08:28)
[2016-06-07] MEDS: METHADONE 10 MG TABLET PO SCH ×2 (08:29→22:36)
[2016-06-07] MEDS: Magnesium Oxide 400 MG TABLET PO SCH ×2 (08:29→22:36)
[2016-06-07] MEDS: PANTOPRAZOLE 40 MG TABLET DR PO SCH (08:29)
[2016-06-07] MEDS: ATENOLOL 50 MG TABLET PO SCH (08:29)
[2016-06-07] MEDS ORDERED: PUMP TUBING ONE (13:02)
[2016-06-07] MEDS: SODIUM CHLORIDE 0.9% 100 ML IV PRN (13:08)
--- NOTE | 2016-06-07 16:10 | PDOC43 ---
- Subjective Chief Complaint: Endocarditis, septic shoulder, MRSA, IVDA Subjective: Reports Tolerating Diet Well, Reports Adequate Oral Intake, Denies Chest Pain, Denies Abdominal Pain, Denies Nausea, Denies Vomiting, Denies Fever , Denies Chills - Objective Vital Signs Temperature 98.7 F 06/07/16 07:13 Pulse Rate 68 06/07/16 07:13 Respiratory Rate 20 06/07/16 07:13 Blood Pressure 140/78 06/07/16 07:13 O2 Saturation by Pulse Oximetry 96 06/07/16 07:13 Oxygen Delivery Method Room Air Oxygen Flow Rate 0 Intake and Output 06/06/16 06/07/16 06/08/16 06:59 06:59 06:59 Intake Total 1999 3000 Output Total 1999 4475 Balance 0 -1475 General: Alert, Oriented x3, Cooperative, No Acute Distress Lungs: Clear to Auscultation Bilaterally Cardiovascular: Regular Rate and Rhythm Abdomen: Soft, Normal Bowel Sounds, Non-Distended, No Tenderness Current Medications: Current meds reviewed in EMR. - Problems: Assessment/Plan (1) Endocarditis Qualifiers: Endocarditis type: unspecified Chronicity: unspecified Qualifier Code: (I38) Endocarditis, valve unspecified Status: SuspectedAssessment/Plan : Suspected Infective Endocarditis based on multiple minor criteria and persistently positive blood cx (major criteria). TTE showed no vegetations. Blood cx results + for MRSA on 05/24 and 05/25 and negative thereafter. D/W ID- 6 weeks of Vancomycin. (2) Septic arthritis of shoulder, right Qualifiers: Septic arthritis organism: staphylococcal Qualifier Code: (M00.011) Staphylococcal arthritis, right shoulder Status: AcuteAssessment/Plan: Dr Gonzales following, arthocentesis growing MRSA, s/p washout. Vanco as above. (3) Cellulitis and abscess of lower extremity Status: AcuteAssessment/Plan: At IVDA injection site on medial R knee. Clinically Improved after I/D. Con't wound care. No evidence of deeper abcess or necrotizing fasciitis. Blood cx growing MRSA, urine and abscess both growing MRSA. Cont. vanco. . (4) Heroin abuse Status: ChronicAssessment/Plan: Long standing heavy use. SW consult. Methadone for withdrawal sx and chronic addiction. High risk to use if discharged- plan for 6 weeks vanco therapy in hospital, unlikely to be able to get Methadone at SNF facility (5) Hepatitis C Qualifiers: Viral hepatitis chronicity: unspecified Status: ChronicAssessment/Plan: Unknown details. Supportive care. (6) Anasarca Status: ChronicAssessment/Plan: Lasix. VTE [facility] only concern for use of heparin analogues due to thrombocytopenia Disposition: Anticipating need for 6 weeks of IV Vancomycin; anticipate will complete treatment in hospital
[2016-06-07] MEDS: OXYCODONE HCL 5 MG TABLET PO PRN ×2 (17:13→22:35)
[2016-06-08] MEDS: VANCOMYCIN HCL 1.5 G in SODIUM CHLORIDE 0.9% 500 ML IV SCH ×2 (01:29→14:10)
[2016-06-08] MEDS: ACETAMINOPHEN 325 MG TABLET PO PRN (03:17)
[2016-06-08] MEDS: METHADONE 10 MG TABLET PO SCH ×2 (09:27→20:46)
[2016-06-08] MEDS: Magnesium Oxide 400 MG TABLET PO SCH ×2 (09:27→20:46)
[2016-06-08] MEDS: PANTOPRAZOLE 40 MG TABLET DR PO SCH (09:27)
[2016-06-08] MEDS: ATENOLOL 50 MG TABLET PO SCH (09:28)
[2016-06-08] MEDS: FUROSEMIDE 40 MG TABLET PO SCH (09:28)
--- NOTE | 2016-06-08 13:37 | PDOC43 ---
- Subjective Chief Complaint: Endocarditis, septic shoulder, MRSA, IVDA Feeling fine. Bored. Subjective: Reports Pain Tolerable, Reports Tolerating Diet Well, Reports Adequate Oral Intake, Denies Shortness of Breath, Denies Cough, Denies Chest Pain, Denies Abdominal Pain, Denies Nausea, Denies Vomiting, Denies Fever, Denies Chills - Objective Vital Signs Temperature 97.3 F 06/08/16 08:00 Pulse Rate 80 06/08/16 08:00 Respiratory Rate 18 06/08/16 08:00 Blood Pressure 131/42 06/08/16 08:00 O2 Saturation by Pulse Oximetry 92 06/08/16 08:00 Oxygen Delivery Method Room Air Oxygen Flow Rate 0 Intake and Output 06/07/16 06/08/16 06/09/16 06:59 06:59 06:59 Intake Total 3000 3860 Output Total 4475 4000 Balance -1475 -140 General: Alert, Oriented x3, Cooperative, No Acute Distress HEENT: Atraumatic Lungs: Clear to Auscultation Bilaterally Cardiovascular: Regular Rate and Rhythm Abdomen: Soft, Normal Bowel Sounds, Non-Distended, No Tenderness Current Medications: Current meds reviewed in EMR. - Problems: Assessment/Plan (1) Endocarditis Qualifiers: Endocarditis type: unspecified Chronicity: unspecified Qualifier Code: (I38) Endocarditis, valve unspecified Status: SuspectedAssessment/Plan : Suspected Infective Endocarditis based on multiple minor criteria and persistently positive blood cx (major criteria). TTE showed no vegetations. Blood cx results + for MRSA on 05/24 and 05/25 and negative thereafter. D/W ID- 6 weeks of Vancomycin. (2) Septic arthritis of shoulder, right Qualifiers: Septic arthritis organism: staphylococcal Qualifier Code: (M00.011) Staphylococcal arthritis, right shoulder Status: AcuteAssessment/Plan: Dr Gonzales following, arthocentesis growing MRSA, s/p washout. Vanco as above. (3) Cellulitis and abscess of lower extremity Status: AcuteAssessment/Plan: At IVDA injection site on medial R knee. Clinically Improved after I/D. Con't wound care. No evidence of deeper abcess or necrotizing fasciitis. Blood cx growing MRSA, urine and abscess both growing MRSA. Cont. vanco. . (4) Heroin abuse Status: ChronicAssessment/Plan: Long standing heavy use. SW consult. Methadone for withdrawal sx and chronic addiction. High risk to use if discharged- plan for 6 weeks vanco therapy in hospital, unlikely to be able to get Methadone at SNF facility. Will check Drugs of Abuse Panel d/t some erratic behavior witnessed by RN last night. Pt denies any current use. (5) Hepatitis C Qualifiers: Viral hepatitis chronicity: unspecified Status: ChronicAssessment/Plan: Unknown details. Supportive care. (6) Anasarca Status: ChronicAssessment/Plan: Lasix. VTE Prophylaxis: [facility] measures only concern for use of heparin analogues due to thrombocytopenia Disposition: Anticipating need for 6 weeks of IV Vancomycin; anticipate will complete treatment in hospital
[2016-06-08] MEDS: SODIUM CHLORIDE 0.9% 100 ML IV PRN (14:10)
[2016-06-08 14:27] LABS: VANCOMYCIN TROUGH 18.5 ug/ml (5.0-10.0)
[2016-06-08 15:03] LABS: URINE BILIRUBIN NEGATIVE (NEGATIVE); URINE BLOOD 2+ (NEGATIVE); URINE GLUCOSE (UA) NEGATIVE (NEGATIVE); URINE LEUKOCYTE ESTERASE NEGATIVE (NEGATIVE); URINE NITRITE NEGATIVE (NEGATIVE); URINE PROTEIN NEGATIVE (NEGATIVE); URINE UROBILINOGEN NORMAL (0-1 mg/dl)
[2016-06-08 15:06] LABS: URINE APPEARANCE CLEAR; URINE COLOR STRAW
[2016-06-08 15:09] LABS: URINE BACTERIA FEW; URINE EPITHELIAL CELLS 0-1 /hpf; URINE OTHER BUDDING YEAST; URINE WBC 0-2 /hpf
[2016-06-08 15:45] LABS: AMPHETAMINES/METHAMPHETAMINES NEGATIVE (NEGATIVE); COCAINE NEGATIVE (NEGATIVE); MARIJUANA NEGATIVE (NEGATIVE); METHADONE POSITIVE (NEGATIVE); OPIATES NEGATIVE (NEGATIVE); TRICYCLIC ANTIDEPRESSANTS NEGATIVE (NEGATIVE)
[2016-06-09] MEDS: VANCOMYCIN HCL 1.5 G in SODIUM CHLORIDE 0.9% 500 ML IV SCH ×2 (01:32→14:48)
[2016-06-09] MEDS: FUROSEMIDE 40 MG TABLET PO SCH (08:33)
[2016-06-09] MEDS: Magnesium Oxide 400 MG TABLET PO SCH ×2 (08:33→20:26)
[2016-06-09] MEDS: METHADONE 10 MG TABLET PO SCH ×2 (08:34→20:26)
[2016-06-09] MEDS: ATENOLOL 50 MG TABLET PO SCH (08:35)
[2016-06-09] MEDS: PANTOPRAZOLE 40 MG TABLET DR PO SCH (08:35)
[2016-06-09] MEDS ORDERED: ALTEPLASE 2 MG VIAL IV ONE ×2 (11:20→13:30)
--- NOTE | 2016-06-09 11:35 | PDOC43 ---
- Subjective Chief Complaint: Endocarditis, septic shoulder, MRSA, IVDA per pt feeling great. no complaints. he reports pain well cotnrolled. he denies any issues with diet or BMs. he notes swelling and redness in legs is chronic for him, and improved from his norm. Subjective: Reports Pain Tolerable, Reports Tolerating Diet Well, Reports Adequate Oral Intake, Reports Bowel Movement, Reports Urinating Without Difficulty, Denies Shortness of Breath, Denies Cough, Denies Chest Pain, Denies Abdominal Pain, Denies Nausea, Denies Vomiting, Denies Fever, Denies Chills - Objective Vital Signs Temperature 98.0 F 06/09/16 08:00 Pulse Rate 76 06/09/16 08:00 Respiratory Rate 18 06/09/16 09:00 Blood Pressure 118/70 06/09/16 08:00 O2 Saturation by Pulse Oximetry 96 06/09/16 08:00 Oxygen Delivery Method Room Air Oxygen Flow Rate 0 Intake and Output 06/07/16 06/08/16 06/09/16 23:59 23:59 23:59 Intake Total 3020 3983 1030 Output Total 4500 4060 2200 Balance -1480 -77 -1170 General: Alert, Oriented x3, Cooperative, No Acute Distress HEENT: Atraumatic, Mucous membr. moist/pink Lungs: Clear to Auscultation Bilaterally, Normal Air Movement, No Diminished at Bases Cardiovascular: Regular Rate and Rhythm, Normal S1, Normal S2, No Murmur Abdomen: Soft, Normal Bowel Sounds, Non-Distended, No Tenderness Extremities: Edema (2+ to mid calf. some overlying chronic skin changes/ erythema. nontender), No Cyanosis, No Tenderness Skin: Warm, Dry, Intact, Erythema (as above) Neurological: Normal Speech Psych/Mental Status: Normal Affect, Normal Mood 06/08/16 06/08/16 14:20 13:20 Vancomycin Trough 18.5 H Urine Methadone Screen Positive H Current Medications: Current meds reviewed in EMR. - Problems: Assessment/Plan (1) Cellulitis and abscess of lower extremity Status: AcuteAssessment/Plan: At IVDA injection site on medial R knee. Clinically Improved after I/D. Con't wound care. No evidence of deeper abscess or necrotizing fasciitis. Blood cx growing MRSA, urine and abscess both growing MRSA. Cont. vanco. . (2) Septic arthritis of shoulder, right Qualifiers: Septic arthritis organism: staphylococcal Qualifier Code: (M00.011) Staphylococcal arthritis, right shoulder Status: AcuteAssessment/Plan: Dr Gonzales following, arthocentesis growing MRSA, s/p washout. Vanco as above. (3) Hypertension Qualifiers: Hypertension type: other secondary hypertension Qualifier Code: (I15.8 ) Other secondary hypertension Status: AcuteAssessment/Plan: improved with atenolol, cont. methadone. (4) Heroin abuse Status: ChronicAssessment/Plan: Long standing heavy use. SW consult. Methadone for withdrawal sx and chronic addiction. High risk to use if discharged- plan for 6 weeks vanco therapy in hospital, unlikely to be able to get Methadone at SNF facility. Drugs of Abuse Panel /3 negative for all but methadone. Pt denies any current use. (5) Anasarca Status: ChronicAssessment/Plan: improving on Lasix. (6) Endocarditis Qualifiers: Endocarditis type: unspecified Chronicity: unspecified Qualifier Code: (I38) Endocarditis, valve unspecified Status: SuspectedAssessment/Plan : Suspected Infective Endocarditis based on multiple minor criteria and persistently positive blood cx (major criteria). TTE showed no vegetations. Blood cx results + for MRSA on 05/24 and 05/25 and negative thereafter. D/W ID- 6 weeks of Vancomycin. VTE Prophylaxis: [facility] measures only concern for use of heparin analogues due to thrombocytopenia in this admission earlier Disposition: Anticipating need for 6 weeks of IV Vancomycin; anticipate will complete treatment in hospital
[2016-06-09 13:58] LABS: HEMATOCRIT 34.8 % (32.0-52.0); HEMOGLOBIN 10.6 gm/l (14.0-18.0); MEAN CELL VOLUME 91.6 fl (80.0-94.0); MEAN CORPUSCULAR HEMOGLOBIN 27.9 pg (27.0-31.0); MEAN CORPUSCULAR HGB CONC 30.5 g/dl (33.0-37.0); RED CELL DISTRIBUTION WIDTH 15.4 % (11.5-14.5)
[2016-06-09 14:09] LABS: ALB/GLOB RATIO 0.4 (>1.0); ALBUMIN 2.2 gm/dL (3.5-5.7); CALCIUM 8.2 mg/dL (8.6-10.3)
[2016-06-09] MEDS ORDERED: PUMP TUBING ONE (14:49)
[2016-06-10] MEDS ORDERED: PUMP TUBING ONE (01:38)
[2016-06-10] MEDS: VANCOMYCIN HCL 1.5 G in SODIUM CHLORIDE 0.9% 500 ML IV SCH ×2 (01:46→15:10)
--- NOTE | 2016-06-10 07:05 | PDOC43 ---
- Subjective Chief Complaint: Endocarditis, septic shoulder, MRSA, IVDA pt states doing well. no pain complaints. no new issues. he feels edema in legs is improved Subjective: Reports Pain Tolerable, Reports Tolerating Diet Well, Reports Adequate Oral Intake, Reports Bowel Movement, Reports Urinating Without Difficulty, Denies Shortness of Breath, Denies Cough, Denies Chest Pain, Denies Abdominal Pain, Denies Nausea, Denies Vomiting, Denies Fever, Denies Chills - Objective Vital Signs Temperature 98.8 F 06/09/16 20:40 Pulse Rate 95 06/09/16 20:40 Respiratory Rate 22 06/10/16 01:45 Blood Pressure 126/92 06/09/16 20:40 O2 Saturation by Pulse Oximetry 96 06/09/16 20:40 Oxygen Delivery Method Room Air Oxygen Flow Rate 0 Intake and Output 06/08/16 06/09/16 06/10/16 23:59 23:59 23:59 Intake Total 3983 2530 1030 Output Total 4060 4500 1200 Balance -77 -1970 -170 General: Alert, Oriented x3, Cooperative, No Acute Distress HEENT: Atraumatic, Mucous membr. moist/pink Lungs: Clear to Auscultation Bilaterally, Normal Air Movement Cardiovascular: Regular Rate and Rhythm, Normal S1, Normal S2, No Murmur Abdomen: Soft, Normal Bowel Sounds, Non-Distended, No Tenderness Extremities: Edema, No Cyanosis, No Tenderness Wound: Dressing Clean/Dry/Intact Neurological: Normal Speech Psych/Mental Status: Normal Affect, Normal Mood Laboratory 06/09/16 13:00 06/09/16 13:00 06/09/16 13:00 RBC 3.80 L MCHC 30.5 L RDW 15.4 H Anion Gap 6 L Calcium 8.2 L Albumin 2.2 L Globulin 5.8 H Albumin/Globulin Ratio 0.4 L Current Medications: Current meds reviewed in EMR. - Problems: Assessment/Plan (1) Cellulitis and abscess of lower extremity Status: AcuteAssessment/Plan: At IVDA injection site on medial R knee. Clinically Improved after I/D. Con't wound care. No evidence of deeper abscess or necrotizing fasciitis. Blood cx growing MRSA, urine and abscess both growing MRSA. Cont. vanco. . (2) Septic arthritis of shoulder, right Qualifiers: Septic arthritis organism: staphylococcal Qualifier Code: (M00.011) Staphylococcal arthritis, right shoulder Status: AcuteAssessment/Plan: Dr Gonzales following, arthocentesis growing MRSA, s/p washout. Vanco as above. (3) Hypertension Qualifiers: Hypertension type: other secondary hypertension Qualifier Code: (I15.8 ) Other secondary hypertension Status: AcuteAssessment/Plan: improved with atenolol, cont. methadone. (4) Heroin abuse Status: ChronicAssessment/Plan: Long standing heavy use. SW consult. Methadone for withdrawal sx and chronic addiction. High risk to use if discharged- plan for 6 weeks vanco therapy in hospital, unlikely to be able to get Methadone at SNF facility. Drugs of Abuse Panel 3/3 negative for all but methadone. Pt denies any current use. (5) Anasarca Status: ChronicAssessment/Plan: improving on Lasix. (6) Endocarditis Qualifiers: Endocarditis type: unspecified Chronicity: unspecified Qualifier Code: (I38) Endocarditis, valve unspecified Status: SuspectedAssessment/Plan : Suspected Infective Endocarditis based on multiple minor criteria and persistently positive blood cx (major criteria). TTE showed no vegetations. Blood cx results + for MRSA on 05/24 and 05/25 and negative thereafter. D/W ID- 6 weeks of Vancomycin. VTE Prophylaxis: [facility] measures only concern for use of heparin analogues due to thrombocytopenia in this admission earlier Disposition: Anticipating need for 6 weeks of IV Vancomycin; anticipate will complete treatment in hospital
[2016-06-10] MEDS: ACETAMINOPHEN 325 MG TABLET PO PRN (07:29)
[2016-06-10] MEDS: Magnesium Oxide 400 MG TABLET PO SCH ×2 (09:37→21:00)
[2016-06-10] MEDS: FUROSEMIDE 40 MG TABLET PO SCH (09:37)
[2016-06-10] MEDS: METHADONE 10 MG TABLET PO SCH ×2 (09:37→21:00)
[2016-06-10] MEDS: PANTOPRAZOLE 40 MG TABLET DR PO SCH (09:37)
[2016-06-10] MEDS: ATENOLOL 50 MG TABLET PO SCH (09:37)
[2016-06-10 13:44] LABS: VANCOMYCIN TROUGH 20.5 ug/ml (5.0-10.0)
[2016-06-10] MEDS: VANCOMYCIN HCL IV SCH (15:03)
[2016-06-10] MEDS: SODIUM CHLORIDE 0.9% IV SCH (15:03)
[2016-06-11] MEDS: VANCOMYCIN HCL IV SCH ×2 (02:58→14:27)
[2016-06-11] MEDS: SODIUM CHLORIDE 0.9% IV SCH ×2 (02:58→14:27)
[2016-06-11] MEDS: ACETAMINOPHEN 325 MG TABLET PO PRN ×2 (03:19→14:37)
[2016-06-11 05:34] LABS: ABSOLUTE NEUTROPHIL COUNT 4.7 K/mm3 (1.8-7.7); BASO # 0.1 K/mm3 (0.0-0.2); BASO % 0.7 % (0.2-1.0); EOS # 0.2 (0.0-0.5); EOS % 2.3 % (0.9-2.9); HEMATOCRIT 32.6 % (32.0-52.0); HEMOGLOBIN 10.2 gm/l (14.0-18.0); IMM NEUT% 0.4 % (0-1); LYMPH # 1.1 (1.0-4.8); LYMPH % 15.6 % (15-45); MEAN CELL VOLUME 90.8 fl (80.0-94.0); MEAN CORPUSCULAR HEMOGLOBIN 28.4 pg (27.0-31.0); MEAN CORPUSCULAR HGB CONC 31.3 g/dl (33.0-37.0); MEAN PLATELET VOLUME 10.9 fl (7.4-10.4); MONO # 0.9 (0.0-0.8); MONO % 12.7 % (4-12); NEUT % 68.3 % (43-75); PLATELET COUNT 129 K/mm3 (130-400); RED CELL DISTRIBUTION WIDTH 14.7 % (11.5-14.5)
[2016-06-11] MEDS: FUROSEMIDE 40 MG TABLET PO SCH (09:00)
[2016-06-11] MEDS: Magnesium Oxide 400 MG TABLET PO SCH ×2 (09:00→21:35)
[2016-06-11] MEDS: METHADONE 10 MG TABLET PO SCH ×2 (09:01→21:35)
[2016-06-11] MEDS: ATENOLOL 50 MG TABLET PO SCH (09:01)
[2016-06-11] MEDS: PANTOPRAZOLE 40 MG TABLET DR PO SCH (09:01)
[2016-06-11] MEDS ORDERED: PUMP TUBING ONE (14:20)
[2016-06-11] MEDS: SODIUM CHLORIDE 0.9% 100 ML IV PRN (14:27)
--- NOTE | 2016-06-11 15:05 | PDOC43 ---
- Subjective Chief Complaint: Endocarditis, septic shoulder, MRSA, IVDA Subjective: Denies Shortness of Breath, Denies Chest Pain, Denies Fever - Objective Vital Signs Temperature 98.0 F 06/11/16 07:49 Pulse Rate 74 06/11/16 07:49 Respiratory Rate 20 06/11/16 07:49 Blood Pressure 130/80 06/11/16 07:49 O2 Saturation by Pulse Oximetry 95 06/11/16 07:49 Oxygen Delivery Method Room Air Oxygen Flow Rate 0 Intake and Output 06/10/16 06/11/16 06/12/16 06:59 06:59 06:59 Intake Total 2530 2380 Output Total 4650 7915 Balance -2120 -1445 General: Alert, Oriented x3, Cooperative, No Acute Distress HEENT: Mucous membr. moist/pink Lungs: Clear to Auscultation Bilaterally Cardiovascular: Regular Rate and Rhythm Abdomen: Soft, Normal Bowel Sounds, Non-Distended, No Tenderness Extremities: Edema (unchanged), Other (right shoulder still with limited ROM but improving) Laboratory 06/11/16 05:10 06/10/16 13:20 06/11/16 05:10 RBC 3.59 L MCHC 31.3 L RDW 14.7 H Current Medications: Current meds reviewed in EMR. - Problems: Assessment/Plan (1) Cellulitis and abscess of lower extremity Status: AcuteAssessment/Plan: At IVDA injection site on medial R knee. Clinically Improved after I/D. Minimal wound care. No evidence of deeper abscess or necrotizing fasciitis. Blood cx growing MRSA, urine and abscess both growing MRSA. Cont. vanco. . (2) Heroin abuse Status: ChronicAssessment/Plan: Long standing heavy use. SW consult. Methadone for withdrawal sx and chronic addiction. High risk to use if discharged- plan for 6 weeks vanco therapy in hospital, unlikely to be able to get Methadone at SNF facility. Drugs of Abuse Panel 3/3 negative for all but methadone. Pt denies any current use. (3) Hepatitis C Qualifiers: Viral hepatitis chronicity: unspecified Status: ChronicAssessment/Plan: Unknown details. Supportive care. (4) Endocarditis Qualifiers: Endocarditis type: unspecified Chronicity: unspecified Qualifier Code: (I38) Endocarditis, valve unspecified Status: SuspectedAssessment/Plan : Suspected Infective Endocarditis based on multiple minor criteria and persistently positive blood cx (major criteria). TTE showed no vegetations. Blood cx results + for MRSA on 05/24 and 05/25 and negative thereafter. D/W ID- 6 weeks of Vancomycin. (5) Anasarca Status: ChronicAssessment/Plan: improving on Lasix. (6) Hypertension Qualifiers: Hypertension type: other secondary hypertension Qualifier Code: (I15.8 ) Other secondary hypertension Status: AcuteAssessment/Plan: improved with atenolol, cont. methadone. (7) Septic arthritis of shoulder, right Qualifiers: Septic arthritis organism: staphylococcal Qualifier Code: (M00.011) Staphylococcal arthritis, right shoulder Status: AcuteAssessment/Plan: Dr Gonzales following, arthocentesis growing MRSA, s/p washout. Vanco as above. (8) UTI (urinary tract infection), bacterial Status: AcuteAssessment/Plan: due to MRSA, likely involving both kidneys given hematogenous spread of infection-adequately treated VTE Prophylaxis: [facility] measures only concern for use of heparin analogues due to thrombocytopenia in this admission earlier Disposition: Anticipating need for 6 weeks of IV Vancomycin; anticipate will complete treatment in hospital
[2016-06-12] MEDS: SODIUM CHLORIDE 0.9% IV SCH ×2 (02:59→16:37)
[2016-06-12] MEDS: VANCOMYCIN HCL IV SCH ×2 (02:59→16:37)
[2016-06-12] MEDS: ACETAMINOPHEN 325 MG TABLET PO PRN (02:59)
[2016-06-12] MEDS: PANTOPRAZOLE 40 MG TABLET DR PO SCH (08:39)
[2016-06-12] MEDS: Magnesium Oxide 400 MG TABLET PO SCH ×2 (08:39→21:37)
[2016-06-12] MEDS: METHADONE 10 MG TABLET PO SCH ×2 (08:40→21:37)
[2016-06-12] MEDS: FUROSEMIDE 40 MG TABLET PO SCH (08:40)
[2016-06-12] MEDS: ATENOLOL 50 MG TABLET PO SCH (08:40)
--- NOTE | 2016-06-12 11:20 | PDOC43 ---
- Subjective Chief Complaint: Endocarditis, septic shoulder, MRSA, IVDA Subjective: Denies Shortness of Breath, Denies Fever - Objective Vital Signs Temperature 98.5 F 06/12/16 08:24 Pulse Rate 81 06/12/16 08:24 Respiratory Rate 18 06/12/16 08:24 Blood Pressure 131/88 06/12/16 08:24 O2 Saturation by Pulse Oximetry 95 06/12/16 08:49 Oxygen Delivery Method Room Air Oxygen Flow Rate 0 Intake and Output 06/11/16 06/12/16 06/13/16 06:59 06:59 06:59 Intake Total 2380 3104 Output Total 3825 4000 Balance -1445 -896 General: Alert, Oriented x3, Cooperative, No Acute Distress HEENT: Mucous membr. moist/pink Lungs: Clear to Auscultation Bilaterally Cardiovascular: Regular Rate and Rhythm Abdomen: Soft, Normal Bowel Sounds, Non-Distended, No Tenderness Extremities: Edema (patient states it is improving but appears unchanged) Skin: Warm, Dry, Intact Laboratory 06/11/16 05:10 06/10/16 13:20 Current Medications: Current meds reviewed in EMR. - Problems: Assessment/Plan (1) Cellulitis and abscess of lower extremity Status: AcuteAssessment/Plan: At IVDA injection site on medial R knee. Clinically Improved after I/D. Minimal wound care. No evidence of deeper abscess or necrotizing fasciitis. Blood cx growing MRSA, urine and abscess both growing MRSA. Cont. vanco. . (2) Heroin abuse Status: ChronicAssessment/Plan: Long standing heavy use. SW consult. Although concern for risk of misusing PICC if discharged, there is no evidence of tampering or misuse of PICC so far while in hospital. Methadone for withdrawal sx and chronic addiction. High risk to use if discharged- plan for 6 weeks vanco therapy in hospital, unlikely to be able to get Methadone at SNF facility. Drugs of Abuse Panel 3/3 negative for all but methadone. Pt denies any current use. (3) Hepatitis C Qualifiers: Viral hepatitis chronicity: unspecified Status: ChronicAssessment/Plan: Unknown details. Supportive care. (4) Endocarditis Qualifiers: Endocarditis type: unspecified Chronicity: unspecified Qualifier Code: (I38) Endocarditis, valve unspecified Status: SuspectedAssessment/Plan : Suspected Infective Endocarditis based on multiple minor criteria and persistently positive blood cx (major criteria). TTE showed no vegetations. Blood cx results + for MRSA on 05/24 and 05/25 and negative thereafter. D/W ID- 6 weeks of Vancomycin. (5) Anasarca Status: ChronicAssessment/Plan: improving on Lasix. (6) Hypertension Qualifiers: Hypertension type: other secondary hypertension Qualifier Code: (I15.8 ) Other secondary hypertension Status: AcuteAssessment/Plan: improved with atenolol, cont. methadone. (7) Septic arthritis of shoulder, right Qualifiers: Septic arthritis organism: staphylococcal Qualifier Code: (M00.011) Staphylococcal arthritis, right shoulder Status: AcuteAssessment/Plan: Dr Gonzales following, arthocentesis growing MRSA, s/p washout. Vanco as above.- OT consult for ROM (8) UTI (urinary tract infection), bacterial Status: AcuteAssessment/Plan: due to MRSA, likely involving both kidneys given hematogenous spread of infection-adequately treated VTE Prophylaxis: [facility] measures only concern for use of heparin analogues due to thrombocytopenia in this admission earlier Disposition: Anticipating need for 6 weeks of IV Vancomycin; anticipate will complete treatment in hospital
[2016-06-12 15:36] LABS: VANCOMYCIN TROUGH 17.2 ug/ml (5.0-10.0)
[2016-06-12] MEDS ORDERED: PUMP TUBING ONE (16:23)
[2016-06-12] MEDS: SODIUM CHLORIDE 0.9% 100 ML IV PRN (16:38)
[2016-06-12] MEDS: DIPHENHYDRAMINE HCL 50 MG/1 ML VIAL IV PRN (21:38)
[2016-06-13] MEDS: SODIUM CHLORIDE 0.9% IV SCH ×2 (03:48→15:43)
[2016-06-13] MEDS: VANCOMYCIN HCL IV SCH ×2 (03:48→15:43)
[2016-06-13] MEDS: ATENOLOL 50 MG TABLET PO SCH (08:12)
[2016-06-13] MEDS: METHADONE 10 MG TABLET PO SCH ×2 (08:12→21:18)
[2016-06-13] MEDS: FUROSEMIDE 40 MG TABLET PO SCH (08:12)
[2016-06-13] MEDS: Magnesium Oxide 400 MG TABLET PO SCH ×2 (08:12→21:18)
[2016-06-13] MEDS: PANTOPRAZOLE 40 MG TABLET DR PO SCH (08:12)
--- NOTE | 2016-06-13 10:56 | PDOC43 ---
- Subjective Chief Complaint: Endocarditis, septic shoulder, MRSA, IVDA Subjective: Denies Shortness of Breath, Denies Chest Pain, Denies Fever - Objective Vital Signs Temperature 98.8 F 06/13/16 07:31 Pulse Rate 78 06/13/16 07:31 Respiratory Rate 20 06/13/16 07:31 Blood Pressure 124/74 06/13/16 07:31 O2 Saturation by Pulse Oximetry 95 06/13/16 07:31 Oxygen Delivery Method Room Air Oxygen Flow Rate 0 Intake and Output 06/12/16 06/13/16 06/14/16 06:59 06:59 06:59 Intake Total 3104 2924 Output Total 4000 2575 Balance -896 349 General: Alert, Oriented x3, Cooperative, No Acute Distress HEENT: Mucous membr. moist/pink Lungs: Clear to Auscultation Bilaterally Cardiovascular: Regular Rate and Rhythm Abdomen: Soft, Normal Bowel Sounds, Non-Distended, No Tenderness Extremities: Edema (2 plus) Wound: Dressing Clean/Dry/Intact Laboratory 06/11/16 05:10 06/12/16 15:10 06/12/16 15:10 Vancomycin Trough 17.2 H Current Medications: Current meds reviewed in EMR. - Problems: Assessment/Plan (1) Cellulitis and abscess of lower extremity Status: AcuteAssessment/Plan: At IVDA injection site on medial R knee. Clinically Improved after I/D. Minimal wound care. No evidence of deeper abscess or necrotizing fasciitis. Blood cx growing MRSA, urine and abscess both growing MRSA. Cont. vanco. . (2) Heroin abuse Status: ChronicAssessment/Plan: Long standing heavy use. SW consult. Although concern for risk of misusing PICC if discharged, there is no evidence of tampering or misuse of PICC so far while in hospital. Methadone for withdrawal sx and chronic addiction. High risk to use if discharged- plan for 6 weeks vanco therapy in hospital, unlikely to be able to get Methadone at SNF facility. Drugs of Abuse Panel 3/3 negative for all but methadone. Pt denies any current use. (3) Hepatitis C Qualifiers: Viral hepatitis chronicity: unspecified Status: ChronicAssessment/Plan: Unknown details. Supportive care. (4) Endocarditis Qualifiers: Endocarditis type: unspecified Chronicity: unspecified Qualifier Code: (I38) Endocarditis, valve unspecified Status: SuspectedAssessment/Plan : Suspected Infective Endocarditis based on multiple minor criteria and persistently positive blood cx (major criteria). TTE showed no vegetations. Blood cx results + for MRSA on 05/24 and 05/25 and negative thereafter. D/W ID- 6 weeks of Vancomycin. (5) Anasarca Status: ChronicAssessment/Plan: improving on Lasix, but holding lasix due to worsening renal function (6) Hypertension Qualifiers: Hypertension type: other secondary hypertension Qualifier Code: (I15.8 ) Other secondary hypertension Status: AcuteAssessment/Plan: improved with atenolol, cont. methadone. (7) Septic arthritis of shoulder, right Qualifiers: Septic arthritis organism: staphylococcal Qualifier Code: (M00.011) Staphylococcal arthritis, right shoulder Status: AcuteAssessment/Plan: Dr Gonzales following, arthocentesis growing MRSA, s/p washout. Vanco as above.- OT consult for ROM (8) UTI (urinary tract infection), bacterial Status: AcuteAssessment/Plan: due to MRSA, likely involving both kidneys given hematogenous spread of infection-adequately treated (9) Anemia Qualifiers: Anemia type: unspecified type Qualifier Code: (D64.9) Anemia, unspecified Status: AcuteAssessment/Plan: HGB down to 10.2 despite Lasix-rule out nutritional deficiencies VTE Prophylaxis: [facility] measures only concern for use of heparin analogues due to thrombocytopenia in this admission earlier Disposition: Anticipating need for 6 weeks of IV Vancomycin; anticipate will complete treatment in hospital
[2016-06-13] MEDS: DIPHENHYDRAMINE HCL 50 MG/1 ML VIAL IV PRN (21:18)
[2016-06-14] MEDS: VANCOMYCIN HCL IV SCH ×3 (04:00→23:06)
[2016-06-14] MEDS: SODIUM CHLORIDE 0.9% 100 ML IV PRN (04:00)
[2016-06-14] MEDS: SODIUM CHLORIDE 0.9% IV SCH ×3 (04:00→23:06)
[2016-06-14] MEDS ORDERED: PUMP TUBING ONE (04:15)
[2016-06-14] MEDS: PANTOPRAZOLE 40 MG TABLET DR PO SCH (08:32)
[2016-06-14] MEDS: METHADONE 10 MG TABLET PO SCH ×2 (08:32→20:22)
[2016-06-14] MEDS: ATENOLOL 50 MG TABLET PO SCH (08:32)
[2016-06-14] MEDS: Magnesium Oxide 400 MG TABLET PO SCH ×2 (08:32→20:22)
[2016-06-14] MEDS: ACETAMINOPHEN 325 MG TABLET PO PRN (08:41)
--- NOTE | 2016-06-14 09:52 | PDOC43 ---
- Subjective Chief Complaint: Endocarditis, septic shoulder, MRSA, IVDA Subjective: Reports Pain Tolerable, Reports Tolerating Diet Well, Denies Shortness of Breath, Denies Chest Pain, Denies Fever - Objective Vital Signs Temperature 98.0 F 06/14/16 07:28 Pulse Rate 86 06/14/16 07:28 Respiratory Rate 18 06/14/16 07:28 Blood Pressure 140/86 06/14/16 07:28 O2 Saturation by Pulse Oximetry 95 06/14/16 07:28 Oxygen Delivery Method Room Air Oxygen Flow Rate 0 Intake and Output 06/13/16 06/14/16 06/15/16 06:59 06:59 06:59 Intake Total 2924 2650 Output Total 9503 7945 Balance 349 -1125 General: Alert, Oriented x3, Cooperative, No Acute Distress HEENT: Mucous membr. moist/pink Lungs: Clear to Auscultation Bilaterally Cardiovascular: Regular Rate and Rhythm Abdomen: Soft, Normal Bowel Sounds, Non-Distended, No Tenderness Extremities: Edema (persists) Wound: Dressing Clean/Dry/Intact Laboratory 06/11/16 05:10 06/12/16 15:10 Current Medications: Current meds reviewed in EMR. - Problems: Assessment/Plan (1) Cellulitis and abscess of lower extremity Status: AcuteAssessment/Plan: At IVDA injection site on medial R knee. Clinically Improved after I/D. Minimal wound care. No evidence of deeper abscess or necrotizing fasciitis. Blood cx growing MRSA, urine and abscess both growing MRSA. Cont. vanco. . (2) Heroin abuse Status: ChronicAssessment/Plan: Long standing heavy use. SW consult. Although concern for risk of misusing PICC if discharged, there is no evidence of tampering or misuse of PICC so far while in hospital. Methadone for withdrawal sx and chronic addiction. High risk to use if discharged- plan for 6 weeks vanco therapy in hospital, unlikely to be able to get Methadone at SNF facility. Drugs of Abuse Panel 3/3 negative for all but methadone. Pt denies any current use. (3) Hepatitis C Qualifiers: Viral hepatitis chronicity: unspecified Status: ChronicAssessment/Plan: Unknown details. Supportive care. (4) Endocarditis Qualifiers: Endocarditis type: unspecified Chronicity: unspecified Qualifier Code: (I38) Endocarditis, valve unspecified Status: SuspectedAssessment/Plan : Suspected Infective Endocarditis based on multiple minor criteria and persistently positive blood cx (major criteria). TTE showed no vegetations. Blood cx results + for MRSA on 05/24 and 05/25 and negative thereafter. D/W ID- 6 weeks of Vancomycin. (5) Anasarca Status: ChronicAssessment/Plan: improving on Lasix, but holding lasix due to worsening renal function (6) Hypertension Qualifiers: Hypertension type: other secondary hypertension Qualifier Code: (I15.8 ) Other secondary hypertension Status: AcuteAssessment/Plan: improved with atenolol, cont. methadone. (7) Septic arthritis of shoulder, right Qualifiers: Septic arthritis organism: staphylococcal Qualifier Code: (M00.011) Staphylococcal arthritis, right shoulder Status: AcuteAssessment/Plan: Dr Gonzales following, arthocentesis growing MRSA, s/p washout. Vanco as above.- OT consult for ROM (8) UTI (urinary tract infection), bacterial Status: AcuteAssessment/Plan: due to MRSA, likely involving both kidneys given hematogenous spread of infection-adequately treated (9) Anemia Qualifiers: Anemia type: unspecified type Qualifier Code: (D64.9) Anemia, unspecified Status: AcuteAssessment/Plan: HGB down to 10.2 despite Lasix-rule out nutritional deficiencies VTE Prophylaxis: [facility] measures only concern for use of heparin analogues due to thrombocytopenia in this admission earlier Disposition: Anticipating need for 6 weeks of IV Vancomycin; anticipate will complete treatment in hospital
[2016-06-14 17:32] LABS: I-STAT CREATININE 1.1 mg/dL (0.6-1.3)
[2016-06-15] MEDS ORDERED: PUMP TUBING ONE (09:40)
[2016-06-15] MEDS: ACETAMINOPHEN 325 MG TABLET PO PRN (09:45)
[2016-06-15] MEDS: METHADONE 10 MG TABLET PO SCH ×2 (09:45→20:59)
[2016-06-15] MEDS: Magnesium Oxide 400 MG TABLET PO SCH ×2 (09:46→20:59)
[2016-06-15] MEDS: PANTOPRAZOLE 40 MG TABLET DR PO SCH (09:46)
[2016-06-15] MEDS: ATENOLOL 50 MG TABLET PO SCH (09:47)
[2016-06-15] MEDS: VANCOMYCIN HCL IV SCH ×2 (09:48→20:58)
[2016-06-15] MEDS: SODIUM CHLORIDE 0.9% IV SCH ×2 (09:48→20:58)
[2016-06-15 10:18] LABS: FERRITIN 257.7 ng/mL (23.9-336.2)
[2016-06-15 10:22] LABS: FOLIC ACID 11.9 ng/mL (>5.9)
--- NOTE | 2016-06-15 12:17 | PDOC43 ---
- Subjective Chief Complaint: Endocarditis, septic shoulder, MRSA, IVDA Subjective: Reports Pain Tolerable, Reports Tolerating Diet Well, Denies Shortness of Breath, Denies Chest Pain, Denies Fever - Objective Vital Signs Temperature 98.4 F 06/15/16 08:00 Pulse Rate 76 06/15/16 08:00 Respiratory Rate 20 06/15/16 08:00 Blood Pressure 133/82 06/15/16 08:00 O2 Saturation by Pulse Oximetry 96 06/15/16 08:00 Oxygen Delivery Method Room Air Oxygen Flow Rate 0 Intake and Output 06/14/16 06/15/16 06/16/16 06:59 06:59 06:59 Intake Total 2650 3051 Output Total 3775 4050 Balance -1125 -999 General: Alert, Oriented x3, Cooperative, No Acute Distress Lungs: Clear to Auscultation Bilaterally Cardiovascular: Regular Rate and Rhythm Abdomen: Soft, Normal Bowel Sounds, Non-Distended, No Tenderness Extremities: Edema (still 2 plus) Wound: Dressing Clean/Dry/Intact Laboratory 06/11/16 05:10 06/15/16 05:30 06/14/16 15:30 VBG Total CO2 34 H Ionized Calcium 1.04 L Vancomycin Trough 18.0 H Current Medications: Current meds reviewed in EMR. - Problems: Assessment/Plan (1) Cellulitis and abscess of lower extremity Status: AcuteAssessment/Plan: At IVDA injection site on medial R knee. Clinically Improved after I/D. Minimal wound care. No evidence of deeper abscess or necrotizing fasciitis. Blood cx growing MRSA, urine and abscess both growing MRSA. Cont. vanco. . (2) Heroin abuse Status: ChronicAssessment/Plan: Long standing heavy use. SW consult. Although concern for risk of misusing PICC if discharged, there is no evidence of tampering or misuse of PICC so far while in hospital. Methadone for withdrawal sx and chronic addiction. High risk to use if discharged- plan for 6 weeks vanco therapy in hospital, unlikely to be able to get Methadone at SNF facility. Drugs of Abuse Panel 3/3 negative for all but methadone. Pt denies any current use. (3) Hepatitis C Qualifiers: Viral hepatitis chronicity: unspecified Status: ChronicAssessment/Plan: Unknown details. Supportive care. (4) Endocarditis Qualifiers: Endocarditis type: unspecified Chronicity: unspecified Qualifier Code: (I38) Endocarditis, valve unspecified Status: SuspectedAssessment/Plan : Suspected Infective Endocarditis based on multiple minor criteria and persistently positive blood cx (major criteria). TTE showed no vegetations. Blood cx results + for MRSA on 05/24 and 05/25 and negative thereafter. D/W ID- 6 weeks of Vancomycin. (5) Anasarca Status: ChronicAssessment/Plan: improving on Lasix, but holding lasix due to worsening renal function (6) Hypertension Qualifiers: Hypertension type: other secondary hypertension Qualifier Code: (I15.8 ) Other secondary hypertension Status: AcuteAssessment/Plan: improved with atenolol, cont. methadone. (7) Septic arthritis of shoulder, right Qualifiers: Septic arthritis organism: staphylococcal Qualifier Code: (M00.011) Staphylococcal arthritis, right shoulder Status: AcuteAssessment/Plan: Dr Gonzales following, arthocentesis growing MRSA, s/p washout. Vanco as above.- OT consult for ROM (8) UTI (urinary tract infection), bacterial Status: AcuteAssessment/Plan: due to MRSA, likely involving both kidneys given hematogenous spread of infection-adequately treated (9) Anemia Qualifiers: Anemia type: unspecified type Qualifier Code: (D64.9) Anemia, unspecified Status: AcuteAssessment/Plan: HGB down to 10.2 despite Lasix, B-12 and Folate are normal, iron studies pending , suspect anemia of chronic disease-will follow VTE Prophylaxis: [facility] measures only concern for use of heparin analogues due to thrombocytopenia in this admission earlier Disposition: Anticipating need for 6 weeks of IV Vancomycin; anticipate will complete treatment in hospital
[2016-06-15 18:29] LABS: TOTAL IRON BINDING CAPACITY 249 ug/dL (261-478); TRANSFERRIN 178 mg/dL (203-362)
[2016-06-15 19:10] LABS: IRON < 19 ug/dL (50-212)
[2016-06-16] MEDS: ACETAMINOPHEN 325 MG TABLET PO PRN (05:59)
--- NOTE | 2016-06-16 08:22 | PDOC43 ---
- Subjective Chief Complaint: Endocarditis, septic shoulder, MRSA, IVDA Subjective: Reports Tolerating Diet Well, Denies Shortness of Breath, Denies Chest Pain, Denies Fever - Objective Vital Signs Temperature 98.2 F 06/16/16 07:29 Pulse Rate 75 06/16/16 07:29 Respiratory Rate 17 06/16/16 07:29 Blood Pressure 137/84 06/16/16 07:29 O2 Saturation by Pulse Oximetry 97 06/16/16 07:29 Oxygen Delivery Method Room Air Oxygen Flow Rate 0 Intake and Output 06/15/16 06/16/16 06/17/16 06:59 06:59 07:59 Intake Total 3051 3679 Output Total 4050 1800 500 Balance -999 1879 -500 General: Alert, Oriented x3, Cooperative, No Acute Distress HEENT: Mucous membr. moist/pink Lungs: Clear to Auscultation Bilaterally Cardiovascular: Regular Rate and Rhythm Abdomen: Soft, Normal Bowel Sounds, Non-Distended, No Tenderness Extremities: Edema (unchanged) Skin: Warm, Dry, Intact Laboratory 06/11/16 05:10 06/14/16 15:30 Iron < 19 L TIBC 249 L Transferrin 178 L Transferrin % Sat 8 L Current Medications: Current meds reviewed in EMR. - Problems: Assessment/Plan (1) Cellulitis and abscess of lower extremity Status: AcuteAssessment/Plan: At IVDA injection site on medial R knee. Clinically Improved after I/D. Minimal wound care. No evidence of deeper abscess or necrotizing fasciitis. Blood cx growing MRSA, urine and abscess both growing MRSA. Cont. vanco. . (2) Heroin abuse Status: ChronicAssessment/Plan: Long standing heavy use. SW consult. Although concern for risk of misusing PICC if discharged, there is no evidence of tampering or misuse of PICC so far while in hospital. Methadone for withdrawal sx and chronic addiction. High risk to use if discharged- plan for 6 weeks vanco therapy in hospital, unlikely to be able to get Methadone at SNF facility. Drugs of Abuse Panel 3/3 negative for all but methadone. Pt denies any current use. (3) Hepatitis C Qualifiers: Viral hepatitis chronicity: unspecified Status: ChronicAssessment/Plan: Unknown details. Supportive care. (4) Endocarditis Qualifiers: Endocarditis type: unspecified Chronicity: unspecified Qualifier Code: (I38) Endocarditis, valve unspecified Status: SuspectedAssessment/Plan : Suspected Infective Endocarditis based on multiple minor criteria and persistently positive blood cx (major criteria). TTE showed no vegetations. Blood cx results + for MRSA on 05/24 and 05/25 and negative thereafter. D/W ID- 6 weeks of Vancomycin. (5) Anasarca Status: ChronicAssessment/Plan: improving on Lasix, but holding lasix due to worsening renal function (6) Hypertension Qualifiers: Hypertension type: other secondary hypertension Qualifier Code: (I15.8 ) Other secondary hypertension Status: AcuteAssessment/Plan: improved with atenolol, cont. methadone. (7) Septic arthritis of shoulder, right Qualifiers: Septic arthritis organism: staphylococcal Qualifier Code: (M00.011) Staphylococcal arthritis, right shoulder Status: AcuteAssessment/Plan: Dr Gonzales following, arthocentesis growing MRSA, s/p washout. Vanco as above.- OT consult for ROM (8) UTI (urinary tract infection), bacterial Status: AcuteAssessment/Plan: due to MRSA, likely involving both kidneys given hematogenous spread of infection-adequately treated (9) Anemia Qualifiers: Anemia type: unspecified type Qualifier Code: (D64.9) Anemia, unspecified Status: AcuteAssessment/Plan: HGB down to 10.2 despite Lasix, B-12 and Folate are normal, iron studies consistent with iron deficiency, suspect anemia of chronic disease also-will start iron VTE Prophylaxis: [facility] [place] [facility] measures only concern for use of heparin analogues due to thrombocytopenia in this admission earlier Disposition: Anticipating need for 6 weeks of IV Vancomycin; anticipate will complete treatment in hospital
[2016-06-16 08:26] LABS: VANCOMYCIN TROUGH 19.9 ug/ml (5.0-10.0)
[2016-06-16] MEDS: Magnesium Oxide 400 MG TABLET PO SCH ×2 (08:34→20:56)
[2016-06-16] MEDS: FERROUS SULFATE (65 Fe) 325 MG TABLET PO SCH (08:34)
[2016-06-16] MEDS: ASCORBIC ACID 500 MG TABLET PO SCH (08:34)
[2016-06-16] MEDS: PANTOPRAZOLE 40 MG TABLET DR PO SCH (08:34)
[2016-06-16] MEDS: ATENOLOL 50 MG TABLET PO SCH (08:34)
[2016-06-16] MEDS: METHADONE 10 MG TABLET PO SCH ×2 (08:34→20:56)
[2016-06-16] MEDS ORDERED: PUMP TUBING ONE (09:27)
[2016-06-16] MEDS: SODIUM CHLORIDE 0.9% 100 ML IV PRN (09:30)
[2016-06-16] MEDS: VANCOMYCIN HCL IV SCH ×2 (09:32→20:55)
[2016-06-16] MEDS: SODIUM CHLORIDE 0.9% IV SCH ×2 (09:32→20:55)
[2016-06-17] MEDS: ACETAMINOPHEN 325 MG TABLET PO PRN (08:08)
[2016-06-17] MEDS: Magnesium Oxide 400 MG TABLET PO SCH ×2 (08:08→21:05)
[2016-06-17] MEDS: ASCORBIC ACID 500 MG TABLET PO SCH (08:08)
[2016-06-17] MEDS: METHADONE 10 MG TABLET PO SCH ×2 (08:08→21:05)
[2016-06-17] MEDS: ATENOLOL 50 MG TABLET PO SCH (08:08)
[2016-06-17] MEDS: PANTOPRAZOLE 40 MG TABLET DR PO SCH (08:08)
[2016-06-17] MEDS: FERROUS SULFATE (65 Fe) 325 MG TABLET PO SCH (08:08)
[2016-06-17] MEDS ORDERED: PUMP TUBING ONE (09:39)
[2016-06-17] MEDS: SODIUM CHLORIDE 0.9% 100 ML IV PRN (09:43)
[2016-06-17] MEDS: SODIUM CHLORIDE 0.9% IV SCH ×2 (09:44→21:05)
[2016-06-17] MEDS: VANCOMYCIN HCL IV SCH ×2 (09:44→21:05)
--- NOTE | 2016-06-17 14:56 | PDOC43 ---
- Subjective Chief Complaint: Endocarditis, septic shoulder, MRSA, IVDA no c/o - Objective Vital Signs Temperature 98.0 F 06/17/16 07:57 Pulse Rate 80 06/17/16 07:57 Respiratory Rate 17 06/17/16 07:57 Blood Pressure 138/85 06/17/16 07:57 O2 Saturation by Pulse Oximetry 90 06/17/16 07:57 Oxygen Delivery Method Room Air Oxygen Flow Rate 0 Intake and Output 06/16/16 06/17/16 06/18/16 05:59 06:59 06:59 Intake Total 1214 Output Total 800 Balance 414 General: Alert, Oriented x3, Cooperative, No Acute Distress HEENT: Mucous membr. moist/pink Lungs: Clear to Auscultation Bilaterally Cardiovascular: Regular Rate and Rhythm, No Murmur Abdomen: Soft, Normal Bowel Sounds, No Tenderness, No Masses Extremities: Edema (trace), Normal Pulses Skin: Normal Color Neurological: Normal Speech Psych/Mental Status: Normal Mood Laboratory 06/11/16 05:10 06/16/16 07:45 Current Medications: Current meds reviewed in EMR. - Problems: Assessment/Plan (1) Endocarditis Qualifiers: Endocarditis type: unspecified Chronicity: unspecified Qualifier Code: (I38) Endocarditis, valve unspecified Status: SuspectedAssessment/Plan : Suspected Infective Endocarditis based on multiple minor criteria and persistently positive blood cx (major criteria). TTE showed no vegetations. Blood cx results + for MRSA on 05/24 and 05/25 and negative thereafter. D/W ID- 6 weeks of Vancomycin. (2) Cellulitis and abscess of lower extremity Status: AcuteAssessment/Plan: At IVDA injection site on medial R knee. Clinically Improved after I/D. Minimal wound care. No evidence of deeper abscess or necrotizing fasciitis. Blood cx growing MRSA, urine and abscess both growing MRSA. Cont. vanco. . (3) Septic arthritis of shoulder, right Qualifiers: Septic arthritis organism: staphylococcal Qualifier Code: (M00.011) Staphylococcal arthritis, right shoulder Status: AcuteAssessment/Plan: Dr Gonzales following, arthocentesis growing MRSA, s/p washout. Vanco as above.- OT consult for ROM (4) Hypertension Qualifiers: Hypertension type: other secondary hypertension Qualifier Code: (I15.8 ) Other secondary hypertension Status: AcuteAssessment/Plan: improved with atenolol, cont. methadone. (5) Heroin abuse Status: ChronicAssessment/Plan: Long standing heavy use. SW consult. Although concern for risk of misusing PICC if discharged, there is no evidence of tampering or misuse of PICC so far while in hospital. Methadone for withdrawal sx and chronic addiction. High risk to use if discharged- plan for 6 weeks vanco therapy in hospital, unlikely to be able to get Methadone at SNF facility. Drugs of Abuse Panel 3/3 negative for all but methadone. Pt denies any current use. (6) Hepatitis C Qualifiers: Viral hepatitis chronicity: unspecified Status: ChronicAssessment/Plan: Unknown details. Supportive care. VTE Prophylaxis: [facility] measures only concern for use of heparin analogues due to thrombocytopenia in this admission earlier Disposition: Anticipating need for 6 weeks of IV Vancomycin; anticipate will complete treatment in hospital
[2016-06-18] MEDS: ACETAMINOPHEN 325 MG TABLET PO PRN (02:21)
[2016-06-18] MEDS: ASCORBIC ACID 500 MG TABLET PO SCH (08:21)
[2016-06-18] MEDS: FERROUS SULFATE (65 Fe) 325 MG TABLET PO SCH (08:21)
[2016-06-18] MEDS: ATENOLOL 50 MG TABLET PO SCH (08:21)
[2016-06-18] MEDS: Magnesium Oxide 400 MG TABLET PO SCH ×2 (08:21→21:14)
[2016-06-18] MEDS: METHADONE 10 MG TABLET PO SCH ×2 (08:21→21:14)
[2016-06-18] MEDS: PANTOPRAZOLE 40 MG TABLET DR PO SCH (08:21)
[2016-06-18 09:45] LABS: VANCOMYCIN TROUGH 19.3 ug/ml (5.0-10.0)
[2016-06-18] MEDS ORDERED: PUMP TUBING ONE (10:01)
[2016-06-18] MEDS: VANCOMYCIN HCL IV SCH ×2 (10:09→21:13)
[2016-06-18] MEDS: SODIUM CHLORIDE 0.9% IV SCH ×2 (10:09→21:13)
--- NOTE | 2016-06-18 12:40 | PDOC43 ---
- Subjective Chief Complaint: Endocarditis, septic shoulder, MRSA, IVDA Patient reports feeling ok. Legs a little less swollen, doing ok, no RN complaints. - Objective Vital Signs Temperature 97.4 F 06/18/16 06:36 Pulse Rate 72 06/18/16 06:36 Respiratory Rate 16 06/18/16 06:36 Blood Pressure 134/88 06/18/16 06:36 O2 Saturation by Pulse Oximetry 98 06/18/16 06:36 Oxygen Delivery Method Room Air Oxygen Flow Rate 0 Vital Signs Last 12 Hours Temp Pulse Resp BP Pulse Ox 06/18/16 06:36 97.4 F 72 16 134/88 98 Intake and Output 06/16/16 06/17/16 06/18/16 22:59 23:59 23:59 Intake Total 850 Output Total 1160 Balance -310 General: Alert, Cooperative, No Acute Distress Lungs: Clear to Auscultation Bilaterally, Normal Air Movement Cardiovascular: Regular Rate and Rhythm, Other (no significant heart murmur noted) Extremities: Edema (sl firm edema bilat lower extrem), Other (sl dusky legs bilat, dressing on R medial prox calf. Improved.) Neurological: Normal Speech Psych/Mental Status: Normal Affect, Normal Mood Laboratory 06/11/16 05:10 06/18/16 09:05 06/18/16 09:05 Vancomycin Trough 19.3 H Current Medications: Current meds reviewed in EMR. Active Medications Acetaminophen (Tylenol) 650 mg PO Q6H PRN PRN Reason: Mild Pain Or Temp > 100.5 F Last Admin: 06/18/16 02:21 Dose: 650 mg Albuterol Sulfate (Ventolin Inhalation Solution (Dose)) 2.5 mg NEB Q2H PRN PRN Reason: Wheezing Last Admin: 05/25/16 19:46 Dose: 2.5 mg Albuterol/Ipratropium (Duoneb) 3 ml NEB Q6H PRN PRN Reason: Wheezing or Dyspnea Last Admin: 06/07/16 23:01 Dose: 3 ml Ascorbic Acid (Vitamin C) 500 mg PO DAILY [facility] Last Admin: 06/18/16 08:21 Dose: 500 mg Atenolol (Tenormin) 50 mg PO DAILY [facility] Last Admin: 06/18/16 08:21 Dose: 50 mg Benzocaine/Menthol (Cepacol) 1 each PO PRN PRN PRN Reason: Sore Throat Bisacodyl (Dulcolax) 10 mg [place] DAILY PRN PRN Reason: Constipation Bisacodyl (Dulcolax) 5 mg PO DAILY PRN PRN Reason: Constipation Diphenhydramine HCl (Benadryl) 25 - 50 mg IV Q6H PRN PRN Reason: Severe Itching Last Admin: 06/13/16 21:18 Dose: 50 mg Diphenhydramine HCl (Benadryl) 25 - 50 mg PO QID PRN PRN Reason: Itching Last Admin: 06/04/16 15:41 Dose: 50 mg Ferrous Sulfate (Ferrous Sulfate) 325 mg PO DAILY [facility] Last Admin: 06/18/16 08:21 Dose: 325 mg Furosemide (Lasix) 40 mg PO DAILY [facility] Last Admin: 06/13/16 08:12 Dose: 40 mg Sodium Chloride (Sodium Chloride 0.9%) 100 mls @ 25 mls/hr IV PRN PRN PRN Reason: Flush Last Admin: 06/17/16 09:43 Dose: 25 mls/hr Promethazine HCl 12.5 mg/ (Sodium Chloride) 50.5 mls @ 200 mls/hr IV Q4H PRN PRN Reason: Nausea/Vomiting Vancomycin HCl 1.25 g/ Sodium (Chloride) 250 mls @ 166.667 mls/hr IV Q12H [facility] Last Admin: 06/18/16 10:09 Dose: 166.667 mls/hr Magnesium Hydroxide (Milk Of Magnesia) 30 ml PO DAILY PRN PRN Reason: Constipation Magnesium Oxide (Magnesium Oxide) 800 mg PO BID [facility] Last Admin: 06/18/16 08:21 Dose: 800 mg Methadone HCl (Methadone) 20 mg PO Q12H [facility] Last Admin: 06/18/16 08:21 Dose: 20 mg Ondansetron HCl (Zofran) 4 mg IV Q6H PRN PRN Reason: Nausea/Vomiting Pantoprazole Sodium (Protonix) 40 mg PO DAILY [facility] Last Admin: 06/18/16 08:21 Dose: 40 mg Petrolatum/Paraffin/Mineral Oil (Blistex) 1 each TP PRN PRN PRN Reason: Dry and/or chapped lips Sodium Chloride (Normal Saline 10ml Flush) 10 - 50 ml IV PRN PRN PRN Reason: IV Flush Last Admin: 06/18/16 12:00 Dose: 10 ml Sodium Chloride (Normal Saline 10ml Flush) 10 ml IV Q8HR [facility] Last Admin: 06/18/16 10:10 Dose: 10 ml - Problems: Assessment/Plan (1) Cellulitis and abscess of lower extremity Status: AcuteAssessment/Plan: At IVDA injection site on medial R knee. Clinically Improved after I/D. Appears healing well. No evidence of deeper abscess or necrotizing fasciitis. Blood cx growing MRSA, urine and abscess both growing MRSA. Cont. vancomycin, anticipate staying until 07/04 . (2) Septic arthritis of shoulder, right Qualifiers: Septic arthritis organism: staphylococcal Qualifier Code: (M00.011) Staphylococcal arthritis, right shoulder Status: AcuteAssessment/Plan: Dr Gonzales following, arthocentesis growing MRSA, s/p washout. Vanco as above.- OT consult for ROM (3) Hypertension Qualifiers: Hypertension type: other secondary hypertension Qualifier Code: (I15.8 ) Other secondary hypertension Status: AcuteAssessment/Plan: improved with atenolol, cont. methadone. (4) Anasarca Status: ChronicAssessment/Plan: improving slowly. Cr stable at 1.0 (5) Heroin abuse Status: ChronicAssessment/Plan: Long standing heavy use. Appreciate SW consult. Methadone for withdrawal sx and chronic addiction. High risk to use if discharged- plan for 6 weeks vanco therapy in hospital, unlikely to be able to get Methadone at SNF facility. Staying until 07/04. Drugs of Abuse Panel 3/3 negative for all but methadone. VTE Prophylaxis: encourage activity. , previously with low platelets Disposition: Anticipating need for 6 weeks of IV Vancomycin; anticipate will complete treatment in hospital
[2016-06-19] MEDS ORDERED: PUMP TUBING ONE (08:51)
[2016-06-19] MEDS: ASCORBIC ACID 500 MG TABLET PO SCH (08:58)
[2016-06-19] MEDS: Magnesium Oxide 400 MG TABLET PO SCH ×2 (08:58→20:56)
[2016-06-19] MEDS: FERROUS SULFATE (65 Fe) 325 MG TABLET PO SCH (08:58)
[2016-06-19] MEDS: PANTOPRAZOLE 40 MG TABLET DR PO SCH (08:58)
[2016-06-19] MEDS: ATENOLOL 50 MG TABLET PO SCH (08:58)
[2016-06-19] MEDS: VANCOMYCIN HCL IV SCH ×2 (08:59→20:56)
[2016-06-19] MEDS: SODIUM CHLORIDE 0.9% IV SCH ×2 (08:59→20:56)
[2016-06-19] MEDS: SODIUM CHLORIDE 0.9% 100 ML IV PRN (08:59)
[2016-06-19] MEDS: METHADONE 10 MG TABLET PO SCH ×2 (09:11→20:56)
--- NOTE | 2016-06-19 12:07 | PDOC43 ---
- Subjective Chief Complaint: Endocarditis, septic shoulder, MRSA, IVDA Patient reports feeling good, continuing to do well. No new c/o, shoulder working better. - Objective Vital Signs Temperature 98.7 F 06/19/16 05:55 Pulse Rate 80 06/19/16 05:55 Respiratory Rate 18 06/19/16 05:55 Blood Pressure 126/78 06/19/16 05:55 O2 Saturation by Pulse Oximetry 95 06/19/16 05:55 Oxygen Delivery Method Room Air Oxygen Flow Rate 0 Vital Signs Last 12 Hours Temp Pulse Resp BP Pulse Ox 06/19/16 05:55 98.7 F 80 18 126/78 95 06/19/16 01:54 20 Intake and Output 06/17/16 06/18/16 06/19/16 23:59 23:59 23:59 Intake Total 2747 450 Output Total 4260 1300 Balance -1513 -850 General: Alert, Cooperative, No Acute Distress (kind of perky, doing a word search) Lungs: Clear to Auscultation Bilaterally Cardiovascular: Regular Rate and Rhythm, No Murmur Extremities: Edema (improving - less red, still firm, but better) Neurological: Normal Speech (husky voice) Psych/Mental Status: Other (pleasant) Laboratory 06/11/16 05:10 06/18/16 09:05 Current Medications: Current meds reviewed in EMR. Active Medications Acetaminophen (Tylenol) 650 mg PO Q6H PRN PRN Reason: Mild Pain Or Temp > 100.5 F Last Admin: 06/18/16 02:21 Dose: 650 mg Albuterol Sulfate (Ventolin Inhalation Solution (Dose)) 2.5 mg NEB Q2H PRN PRN Reason: Wheezing Last Admin: 05/25/16 19:46 Dose: 2.5 mg Albuterol/Ipratropium (Duoneb) 3 ml NEB Q6H PRN PRN Reason: Wheezing or Dyspnea Last Admin: 06/07/16 23:01 Dose: 3 ml Ascorbic Acid (Vitamin C) 500 mg PO DAILY [facility] Last Admin: 06/19/16 08:58 Dose: 500 mg Atenolol (Tenormin) 50 mg PO DAILY [facility] Last Admin: 06/19/16 08:58 Dose: 50 mg Benzocaine/Menthol (Cepacol) 1 each PO PRN PRN PRN Reason: Sore Throat Bisacodyl (Dulcolax) 10 mg [place] DAILY PRN PRN Reason: Constipation Bisacodyl (Dulcolax) 5 mg PO DAILY PRN PRN Reason: Constipation Diphenhydramine HCl (Benadryl) 25 - 50 mg IV Q6H PRN PRN Reason: Severe Itching Last Admin: 06/13/16 21:18 Dose: 50 mg Diphenhydramine HCl (Benadryl) 25 - 50 mg PO QID PRN PRN Reason: Itching Last Admin: 06/04/16 15:41 Dose: 50 mg Ferrous Sulfate (Ferrous Sulfate) 325 mg PO DAILY [facility] Last Admin: 06/19/16 08:58 Dose: 325 mg Furosemide (Lasix) 40 mg PO DAILY [facility] Last Admin: 06/13/16 08:12 Dose: 40 mg Sodium Chloride (Sodium Chloride 0.9%) 100 mls @ 25 mls/hr IV PRN PRN PRN Reason: Flush Last Admin: 06/19/16 08:59 Dose: 25 mls/hr Promethazine HCl 12.5 mg/ (Sodium Chloride) 50.5 mls @ 200 mls/hr IV Q4H PRN PRN Reason: Nausea/Vomiting Vancomycin HCl 1.25 g/ Sodium (Chloride) 250 mls @ 166.667 mls/hr IV Q12H [facility] Last Admin: 06/19/16 08:59 Dose: 166.667 mls/hr Magnesium Hydroxide (Milk Of Magnesia) 30 ml PO DAILY PRN PRN Reason: Constipation Magnesium Oxide (Magnesium Oxide) 800 mg PO BID [facility] Last Admin: 06/19/16 08:58 Dose: 800 mg Methadone HCl (Methadone) 20 mg PO Q12H [facility] Last Admin: 06/19/16 09:11 Dose: 20 mg Ondansetron HCl (Zofran) 4 mg IV Q6H PRN PRN Reason: Nausea/Vomiting Pantoprazole Sodium (Protonix) 40 mg PO DAILY [facility] Last Admin: 06/19/16 08:58 Dose: 40 mg Petrolatum/Paraffin/Mineral Oil (Blistex) 1 each TP PRN PRN PRN Reason: Dry and/or chapped lips Sodium Chloride (Normal Saline 10ml Flush) 10 - 50 ml IV PRN PRN PRN Reason: IV Flush Last Admin: 06/19/16 10:46 Dose: 10 ml Sodium Chloride (Normal Saline 10ml Flush) 10 ml IV Q8HR [facility] Last Admin: 06/19/16 08:58 Dose: 10 ml - Problems: Assessment/Plan (1) Cellulitis and abscess of lower extremity Status: AcuteAssessment/Plan: At IVDA injection site on medial R knee. Clinically Improved after I/D. Appears healing well. No evidence of deeper abscess or necrotizing fasciitis. Blood cx growing MRSA, urine and abscess both growing MRSA. Cont. vancomycin, anticipate staying until 07/04 . (2) Septic arthritis of shoulder, right Qualifiers: Septic arthritis organism: staphylococcal Qualifier Code: (M00.011) Staphylococcal arthritis, right shoulder Status: AcuteAssessment/Plan: Dr Gonzales following, arthocentesis growing MRSA, s/p washout. Vanco as above.- OT consult for ROM (3) Hypertension Qualifiers: Hypertension type: other secondary hypertension Qualifier Code: (I15.8 ) Other secondary hypertension Status: AcuteAssessment/Plan: improved with atenolol, cont. methadone. (4) Anasarca Status: ChronicAssessment/Plan: improving slowly. Cr stable at 1.0 Anticipate DC I/O monitoring (5) Heroin abuse Status: ChronicAssessment/Plan: Long standing heavy use. Appreciate SW consult. Methadone for withdrawal sx and chronic addiction. High risk to use if discharged- plan for 6 weeks vanco therapy in hospital, unlikely to be able to get Methadone at SNF facility. Staying until 07/04. Drugs of Abuse Panel 3/3 negative for all but methadone. VTE Prophylaxis: encourage activity. , previously with low platelets Disposition: Anticipating need for 6 weeks of IV Vancomycin; anticipate will complete treatment in hospital
[2016-06-20] MEDS: ASCORBIC ACID 500 MG TABLET PO SCH (09:03)
[2016-06-20] MEDS: PANTOPRAZOLE 40 MG TABLET DR PO SCH (09:03)
[2016-06-20] MEDS: METHADONE 10 MG TABLET PO SCH ×2 (09:03→21:22)
[2016-06-20] MEDS: FERROUS SULFATE (65 Fe) 325 MG TABLET PO SCH (09:03)
[2016-06-20] MEDS: ATENOLOL 50 MG TABLET PO SCH (09:03)
[2016-06-20] MEDS: Magnesium Oxide 400 MG TABLET PO SCH ×2 (09:03→21:22)
[2016-06-20] MEDS: VANCOMYCIN HCL IV SCH ×2 (09:35→21:22)
[2016-06-20] MEDS: SODIUM CHLORIDE 0.9% IV SCH ×2 (09:35→21:22)
[2016-06-20] MEDS ORDERED: PUMP TUBING ONE (09:39)
[2016-06-20] MEDS: SODIUM CHLORIDE 0.9% 100 ML IV PRN (09:42)
--- NOTE | 2016-06-20 21:08 | PDOC43 ---
- Subjective Chief Complaint: Endocarditis, septic shoulder, MRSA, IVDA No c/o's. Subjective: Reports Tolerating Diet Well, Denies Shortness of Breath, Denies Cough, Denies Chest Pain, Denies Abdominal Pain, Denies Nausea, Denies Vomiting , Denies Fever, Denies Chills - Objective Vital Signs Temperature 97.8 F 06/20/16 18:51 Pulse Rate 63 06/20/16 18:51 Respiratory Rate 20 06/20/16 19:23 Blood Pressure 128/90 06/20/16 18:51 O2 Saturation by Pulse Oximetry 94 06/20/16 18:51 Oxygen Delivery Method Room Air Oxygen Flow Rate 0 Intake and Output 06/19/16 06/20/16 06/21/16 06:59 06:59 06:59 Intake Total 2347 2370 2199 Output Total 4400 3881 1780 Balance -2052 -1510 419 General: Alert, Oriented x3, Cooperative, No Acute Distress Lungs: Clear to Auscultation Bilaterally Cardiovascular: Regular Rate and Rhythm Abdomen: Soft, Normal Bowel Sounds, Non-Distended, No Tenderness Extremities: Edema (Trace.) Current Medications: Current meds reviewed in EMR. - Problems: Assessment/Plan (1) Endocarditis Qualifiers: Endocarditis type: unspecified Chronicity: unspecified Qualifier Code: (I38) Endocarditis, valve unspecified Status: SuspectedAssessment/Plan : Suspected Infective Endocarditis based on multiple minor criteria and persistently positive blood cx (major criteria). TTE showed no vegetations. Blood cx results + for MRSA on 05/24 and 05/25 and negative thereafter. D/W ID- 6 weeks of Vancomycin. (2) Septic arthritis of shoulder, right Qualifiers: Septic arthritis organism: staphylococcal Qualifier Code: (M00.011) Staphylococcal arthritis, right shoulder Status: AcuteAssessment/Plan: Ortho following, arthocentesis growing MRSA, s/p washout. Vanco as above.-OT consult for ROM (3) Cellulitis and abscess of lower extremity Status: AcuteAssessment/Plan: At IVDA injection site on medial R knee. Clinically Improved after I/D. Appears healing well. No evidence of deeper abscess or necrotizing fasciitis. Blood cx growing MRSA, urine and abscess both growing MRSA. Cont. vancomycin, anticipate staying until 07/04 . (4) Heroin abuse Status: ChronicAssessment/Plan: Long standing heavy use. Appreciate SW consult. Methadone for withdrawal sx and chronic addiction. High risk to use if discharged- plan for 6 weeks vanco therapy in hospital, unlikely to be able to get Methadone at SNF facility. Staying until 07/04. Drugs of Abuse Panel 06/08 negative for all but methadone. (5) Hepatitis C Qualifiers: Viral hepatitis chronicity: unspecified Status: ChronicAssessment/Plan: Unknown details. Supportive care. (6) Anasarca Status: ChronicAssessment/Plan: Improved and stable. Disposition: 6 weeks of IV Vancomycin-will complete treatment in hospital. Planned d/c .
[2016-06-21] MEDS: METHADONE 10 MG TABLET PO SCH ×2 (08:29→21:13)
[2016-06-21] MEDS: FERROUS SULFATE (65 Fe) 325 MG TABLET PO SCH (08:29)
[2016-06-21] MEDS: ATENOLOL 50 MG TABLET PO SCH (08:29)
[2016-06-21] MEDS: Magnesium Oxide 400 MG TABLET PO SCH ×2 (08:30→21:13)
[2016-06-21] MEDS: PANTOPRAZOLE 40 MG TABLET DR PO SCH (08:30)
[2016-06-21] MEDS: ASCORBIC ACID 500 MG TABLET PO SCH (08:30)
[2016-06-21] MEDS: VANCOMYCIN HCL IV SCH ×2 (09:48→21:13)
[2016-06-21] MEDS: SODIUM CHLORIDE 0.9% IV SCH ×2 (09:48→21:13)
[2016-06-21] MEDS: SODIUM CHLORIDE 0.9% 100 ML IV PRN ×2 (09:49→21:13)
--- NOTE | 2016-06-21 12:25 | PDOC43 ---
- Subjective Chief Complaint: Endocarditis, septic shoulder, MRSA, IVDA No c/o's. Subjective: Reports Tolerating Diet Well, Denies Shortness of Breath, Denies Cough, Denies Chest Pain, Denies Abdominal Pain, Denies Nausea, Denies Vomiting , Denies Fever, Denies Chills - Objective Vital Signs Temperature 99.1 F 06/21/16 07:00 Pulse Rate 67 06/21/16 07:00 Respiratory Rate 17 06/21/16 07:00 Blood Pressure 139/87 06/21/16 07:00 O2 Saturation by Pulse Oximetry 96 06/21/16 07:00 Oxygen Delivery Method Room Air Oxygen Flow Rate 0 Intake and Output 06/20/16 06/21/16 06/22/16 06:59 06:59 06:59 Intake Total 2370 3685 Output Total 3881 4080 700 Balance -1511 -395 -700 General: Alert, Oriented x3, Cooperative, No Acute Distress HEENT: Atraumatic Lungs: Clear to Auscultation Bilaterally Cardiovascular: Regular Rate and Rhythm Abdomen: Soft, Normal Bowel Sounds, Non-Distended, No Tenderness Extremities: Edema (1-2+) Wound: Dressing Clean/Dry/Intact Current Medications: Current meds reviewed in EMR. - Problems: Assessment/Plan (1) Endocarditis Qualifiers: Endocarditis type: unspecified Chronicity: unspecified Qualifier Code: (I38) Endocarditis, valve unspecified Status: SuspectedAssessment/Plan : Suspected Infective Endocarditis based on multiple minor criteria and persistently positive blood cx (major criteria). TTE showed no vegetations. Blood cx results + for MRSA on 05/24 and 05/25 and negative thereafter. D/W ID- 6 weeks of Vancomycin. (2) Septic arthritis of shoulder, right Qualifiers: Septic arthritis organism: staphylococcal Qualifier Code: (M00.011) Staphylococcal arthritis, right shoulder Status: AcuteAssessment/Plan: Ortho following, arthocentesis growing MRSA, s/p washout. Vanco as above.-OT consult for ROM (3) Cellulitis and abscess of lower extremity Status: AcuteAssessment/Plan: At IVDA injection site on medial R knee. Clinically Improved after I/D. Appears healing well. No evidence of deeper abscess or necrotizing fasciitis. Blood cx growing MRSA, urine and abscess both growing MRSA. Cont. vancomycin, anticipate staying until 07/04 . (4) Heroin abuse Status: ChronicAssessment/Plan: Long standing heavy use. Appreciate SW consult. Methadone for withdrawal sx and chronic addiction. High risk to use if discharged- plan for 6 weeks vanco therapy in hospital, unlikely to be able to get Methadone at SNF facility. Staying until 07/04. Drugs of Abuse Panel 06/08 negative for all but methadone. (5) Hepatitis C Qualifiers: Viral hepatitis chronicity: unspecified Status: ChronicAssessment/Plan: Unknown details. Supportive care. (6) Anasarca Status: ChronicAssessment/Plan: Improved and stable. VTE Prophylaxis: encourage activity. , previously with low platelets Disposition: 6 weeks of IV Vancomycin-will complete treatment in hospital. Planned d/c .
--- NOTE | 2016-06-21 15:49 | RAD ---
Exam: Portable chest COMPARISON: 06/06/2016, 06/03/2016 INDICATION: Patient keeps pulling on PICC line. Evaluate it's placement. FINDINGS: A semierect AP portable view of the chest at 1503 hours demonstrates that the left upper extremity PICC has pulled back even more, and the tip now overlies the central left brachiocephalic vein. Cardiac silhouette is within normal limits. Right basilar opacity has resolved. IMPRESSION: Left upper extremity PICC has pulled back, and the tip now overlies the central left brachiocephalic vein. Report called to Stacey at 1513 hours 06/21/2016.
[2016-06-21] MEDS ORDERED: LIDOCAINE 1% (PRES FREE) 5 ML VIAL PF PRN (16:56)
[2016-06-21] MEDS ORDERED: LORAZEPAM 2 MG/ML 1ML SDV IV PRN (16:56)
--- NOTE | 2016-06-21 16:58 | RAD ---
Exam: Portable chest INDICATION: PICC placement. FINDINGS: A semierect AP portable view of the chest at 1644 hours is compared with a similar exam obtained same day at 1503 hours. The left upper extremity PICC has been removed. There has been placement of a right upper extremity PICC and the tip projects approximately 2 cm deep to the cavoatrial junction. There is no pneumothorax or other apparent complication of it's placement. Lungs remain clear. IMPRESSION: Right upper extremity PICC tip projects approximately 2 cm beyond the cavoatrial junction. No pneumothorax. Findings called to Satcey at 1652 hours 06/21/2016.
[2016-06-21] MEDS ORDERED: PUMP TUBING ONE (21:05)
[2016-06-22] MEDS: METHADONE 10 MG TABLET PO SCH ×2 (08:46→21:46)
[2016-06-22] MEDS: FERROUS SULFATE (65 Fe) 325 MG TABLET PO SCH (08:46)
[2016-06-22] MEDS: Magnesium Oxide 400 MG TABLET PO SCH ×2 (08:46→21:46)
[2016-06-22] MEDS: ASCORBIC ACID 500 MG TABLET PO SCH (08:46)
[2016-06-22] MEDS: PANTOPRAZOLE 40 MG TABLET DR PO SCH (08:46)
[2016-06-22] MEDS: ATENOLOL 50 MG TABLET PO SCH (08:47)
[2016-06-22 09:30] LABS: VANCOMYCIN TROUGH 19.4 ug/ml (5.0-10.0)
[2016-06-22] MEDS: SODIUM CHLORIDE 0.9% IV SCH ×2 (10:02→21:46)
[2016-06-22] MEDS: VANCOMYCIN HCL IV SCH ×2 (10:02→21:46)
[2016-06-22] MEDS: ACETAMINOPHEN 325 MG TABLET PO PRN ×2 (11:54→23:36)
--- NOTE | 2016-06-22 13:07 | PDOC43 ---
- Subjective Chief Complaint: Endocarditis, septic shoulder, MRSA, IVDA Patient reports doing ok, kind of bored. Shoulder sore after replacement of PICC. No new c/o. Legs swelling improving, slowly, L>R. - Objective Vital Signs Temperature 98.3 F 06/22/16 08:46 Pulse Rate 73 06/22/16 08:46 Respiratory Rate 22 06/22/16 08:46 Blood Pressure 138/73 06/22/16 08:46 O2 Saturation by Pulse Oximetry 96 06/22/16 08:46 Oxygen Delivery Method Room Air Oxygen Flow Rate 0 Vital Signs Last 12 Hours Temp Pulse Resp BP Pulse Ox 06/22/16 08:46 98.3 F 73 22 138/73 96 06/22/16 08:00 96 06/22/16 01:52 18 Intake and Output 06/20/16 06/21/16 06/22/16 23:59 23:59 23:59 Intake Total 3649 3156 650 Output Total 4412 3300 1275 Balance -157 -393 -734 General: Alert, Cooperative, No Acute Distress HEENT: Atraumatic Extremities: Edema (ongoing, but slowly improving. Dressing on posterior R knee medially. R shoulder with stiffness, some difficulty abducting beyond about 45 degrees.) Skin: Normal Color Psych/Mental Status: Other (pleasant, appears at baseline) Laboratory 06/11/16 05:10 06/22/16 08:40 06/22/16 08:40 Vancomycin Trough 19.4 H Current Medications: Current meds reviewed in EMR. Active Medications Acetaminophen (Tylenol) 650 mg PO Q6H PRN PRN Reason: Mild Pain Or Temp > 100.5 F Last Admin: 06/22/16 11:54 Dose: 650 mg Albuterol Sulfate (Ventolin Inhalation Solution (Dose)) 2.5 mg NEB Q2H PRN PRN Reason: Wheezing Last Admin: 05/25/16 19:46 Dose: 2.5 mg Albuterol/Ipratropium (Duoneb) 3 ml NEB Q6H PRN PRN Reason: Wheezing or Dyspnea Last Admin: 06/07/16 23:01 Dose: 3 ml Ascorbic Acid (Vitamin C) 500 mg PO DAILY [facility] Last Admin: 06/22/16 08:46 Dose: 500 mg Atenolol (Tenormin) 50 mg PO DAILY [facility] Last Admin: 06/22/16 08:47 Dose: 50 mg Benzocaine/Menthol (Cepacol) 1 each PO PRN PRN PRN Reason: Sore Throat Bisacodyl (Dulcolax) 10 mg [place] DAILY PRN PRN Reason: Constipation Bisacodyl (Dulcolax) 5 mg PO DAILY PRN PRN Reason: Constipation Diphenhydramine HCl (Benadryl) 25 - 50 mg IV Q6H PRN PRN Reason: Severe Itching Last Admin: 06/13/16 21:18 Dose: 50 mg Diphenhydramine HCl (Benadryl) 25 - 50 mg PO QID PRN PRN Reason: Itching Last Admin: 06/04/16 15:41 Dose: 50 mg Ferrous Sulfate (Ferrous Sulfate) 325 mg PO DAILY [facility] Last Admin: 06/22/16 08:46 Dose: 325 mg Furosemide (Lasix) 40 mg PO DAILY [facility] Last Admin: 06/13/16 08:12 Dose: 40 mg Sodium Chloride (Sodium Chloride 0.9%) 100 mls @ 25 mls/hr IV PRN PRN PRN Reason: Flush Last Admin: 06/21/16 21:13 Dose: 25 mls/hr Promethazine HCl 12.5 mg/ (Sodium Chloride) 50.5 mls @ 200 mls/hr IV Q4H PRN PRN Reason: Nausea/Vomiting Vancomycin HCl 1.25 g/ Sodium (Chloride) 250 mls @ 166.667 mls/hr IV Q12H [facility] Last Admin: 06/22/16 10:02 Dose: 166.667 mls/hr Magnesium Hydroxide (Milk Of Magnesia) 30 ml PO DAILY PRN PRN Reason: Constipation Magnesium Oxide (Magnesium Oxide) 800 mg PO BID [facility] Last Admin: 06/22/16 08:46 Dose: 800 mg Methadone HCl (Methadone) 20 mg PO Q12H [facility] Last Admin: 06/22/16 08:46 Dose: 20 mg Ondansetron HCl (Zofran) 4 mg IV Q6H PRN PRN Reason: Nausea/Vomiting Pantoprazole Sodium (Protonix) 40 mg PO DAILY [facility] Last Admin: 06/22/16 08:46 Dose: 40 mg Petrolatum/Paraffin/Mineral Oil (Blistex) 1 each TP PRN PRN PRN Reason: Dry and/or chapped lips Sodium Chloride (Normal Saline 10ml Flush) 10 - 50 ml IV PRN PRN PRN Reason: IV Flush Last Admin: 06/22/16 11:54 Dose: 10 ml Sodium Chloride (Normal Saline 10ml Flush) 10 ml IV Q8HR [facility] Last Admin: 06/22/16 10:02 Dose: 10 ml - Problems: Assessment/Plan (1) Cellulitis and abscess of lower extremity Status: AcuteAssessment/Plan: At IVDA injection site on medial R knee. Clinically Improved after I/D. Appears healing well. No evidence of deeper abscess or necrotizing fasciitis. Blood cx growing MRSA, urine and abscess both growing MRSA. Blood cultures neg since 05/26. Cont. vancomycin, anticipate staying until 07/04 . (2) Septic arthritis of shoulder, right Qualifiers: Septic arthritis organism: staphylococcal Qualifier Code: (M00.011) Staphylococcal arthritis, right shoulder Status: AcuteAssessment/Plan: Ortho following, arthocentesis growing MRSA, s/p washout. Vanco as above.-OT consult for ROM (3) Hypertension Qualifiers: Hypertension type: other secondary hypertension Qualifier Code: (I15.8 ) Other secondary hypertension Status: AcuteAssessment/Plan: improved with atenolol, cont. methadone. Control appears good. (4) Anasarca Status: ChronicAssessment/Plan: Improving. (5) Heroin abuse Status: ChronicAssessment/Plan: Long standing heavy use. Appreciate SW consult. Methadone for withdrawal sx and chronic addiction. High risk to use if discharged- plan for 6 weeks vanco therapy in hospital, unlikely to be able to get Methadone at SNF facility. Staying until 07/04. Drugs of Abuse Panel 06/08 negative for all but methadone. VTE Prophylaxis: encourage activity. , previously with low platelets Disposition: 6 weeks of IV Vancomycin-will complete treatment in hospital. Planned d/c .
[2016-06-23] MEDS: FERROUS SULFATE (65 Fe) 325 MG TABLET PO SCH (08:59)
[2016-06-23] MEDS: ATENOLOL 50 MG TABLET PO SCH (09:00)
[2016-06-23] MEDS: METHADONE 10 MG TABLET PO SCH ×2 (09:00→20:43)
[2016-06-23] MEDS: VANCOMYCIN HCL IV SCH ×2 (09:00→20:45)
[2016-06-23] MEDS: ASCORBIC ACID 500 MG TABLET PO SCH (09:00)
[2016-06-23] MEDS: PANTOPRAZOLE 40 MG TABLET DR PO SCH (09:00)
[2016-06-23] MEDS: Magnesium Oxide 400 MG TABLET PO SCH ×2 (09:00→20:43)
[2016-06-23] MEDS: SODIUM CHLORIDE 0.9% IV SCH ×2 (09:00→20:45)
[2016-06-23] MEDS: SODIUM CHLORIDE 0.9% 100 ML IV PRN (09:01)
--- NOTE | 2016-06-23 10:37 | PDOC43 ---
- Subjective Chief Complaint: Endocarditis, septic shoulder, MRSA, IVDA Subjective: Reports Tolerating Diet Well, Denies Shortness of Breath, Denies Chest Pain, Denies Fever - Objective Vital Signs Temperature 98.3 F 06/23/16 08:00 Pulse Rate 73 06/23/16 08:00 Respiratory Rate 18 06/23/16 08:00 Blood Pressure 125/72 06/23/16 08:00 O2 Saturation by Pulse Oximetry 90 06/23/16 08:00 Oxygen Delivery Method Room Air Oxygen Flow Rate 0 Intake and Output 06/22/16 06/23/16 06/24/16 06:59 06:59 06:59 Intake Total 2320 3256 Output Total 2275 3450 Balance 45 -194 General: Alert, Oriented x3, Cooperative, No Acute Distress HEENT: Mucous membr. moist/pink Lungs: Clear to Auscultation Bilaterally Cardiovascular: Regular Rate and Rhythm Abdomen: Soft, Normal Bowel Sounds, Non-Distended, No Tenderness Extremities: Edema (unchanged) Wound: Dressing Clean/Dry/Intact Laboratory 06/11/16 05:10 06/22/16 08:40 Current Medications: Current meds reviewed in EMR. - Problems: Assessment/Plan (1) Cellulitis and abscess of lower extremity Status: AcuteAssessment/Plan: At IVDA injection site on medial R knee. Clinically Improved after I/D. Appears healing well. No evidence of deeper abscess or necrotizing fasciitis. Blood cx growing MRSA, urine and abscess both growing MRSA. Blood cultures neg since 05/26. Cont. vancomycin, anticipate staying until 07/04 . (2) Heroin abuse Status: ChronicAssessment/Plan: Long standing heavy use. Appreciate SW consult. Methadone for withdrawal sx and chronic addiction. High risk to use if discharged- plan for 6 weeks vanco therapy in hospital, unlikely to be able to get Methadone at SNF facility. Staying until 07/04. Drugs of Abuse Panel 06/08 negative for all but methadone. (3) Hepatitis C Qualifiers: Viral hepatitis chronicity: unspecified Status: ChronicAssessment/Plan: Unknown details. Supportive care. (4) Endocarditis Qualifiers: Endocarditis type: unspecified Chronicity: unspecified Qualifier Code: (I38) Endocarditis, valve unspecified Status: SuspectedAssessment/Plan : Suspected Infective Endocarditis based on multiple minor criteria and persistently positive blood cx (major criteria). TTE showed no vegetations. Blood cx results + for MRSA on 05/24 and 05/25 and negative thereafter. D/W ID- 6 weeks of Vancomycin. (5) Anasarca Status: ChronicAssessment/Plan: Improving. (6) Hypertension Qualifiers: Hypertension type: other secondary hypertension Qualifier Code: (I15.8 ) Other secondary hypertension Status: AcuteAssessment/Plan: improved with atenolol, cont. methadone. Control appears good. (7) Septic arthritis of shoulder, right Qualifiers: Septic arthritis organism: staphylococcal Qualifier Code: (M00.011) Staphylococcal arthritis, right shoulder Status: AcuteAssessment/Plan: Ortho following, arthocentesis growing MRSA, s/p washout. Vanco as above.-OT consult for ROM (8) UTI (urinary tract infection), bacterial Status: AcuteAssessment/Plan: due to MRSA, likely involving both kidneys given hematogenous spread of infection-adequately treated (9) Anemia Qualifiers: Anemia type: unspecified type Qualifier Code: (D64.9) Anemia, unspecified Status: AcuteAssessment/Plan: HGB down to 10.2 despite Lasix, B-12 and Folate are normal, iron studies consistent with iron deficiency also suspect anemia of chronic disease also- started iron VTE Prophylaxis: encourage activity. , previously with low platelets Disposition: 6 weeks of IV Vancomycin-will complete treatment in hospital. Planned d/c .
[2016-06-23] MEDS: ACETAMINOPHEN 325 MG TABLET PO PRN (17:12)
[2016-06-23] MEDS ORDERED: PUMP TUBING ONE (20:30)
--- NOTE | 2016-06-24 08:09 | PDOC43 ---
- Subjective Chief Complaint: Endocarditis, septic shoulder, MRSA, IVDA Subjective: Denies Shortness of Breath, Denies Chest Pain, Denies Fever - Objective Vital Signs Temperature 98.4 F 06/23/16 19:34 Pulse Rate 76 06/23/16 19:34 Respiratory Rate 16 06/24/16 02:00 Blood Pressure 127/68 06/23/16 19:34 O2 Saturation by Pulse Oximetry 98 06/23/16 19:34 Oxygen Delivery Method Room Air Oxygen Flow Rate 0 Intake and Output 06/23/16 06/24/16 06/25/16 06:59 06:59 06:59 Intake Total 3256 2200 Output Total 3450 3875 Balance -194 -1675 General: Alert, Oriented x3, Cooperative, No Acute Distress HEENT: Mucous membr. moist/pink Lungs: Clear to Auscultation Bilaterally Cardiovascular: Regular Rate and Rhythm Abdomen: Soft, Normal Bowel Sounds, Non-Distended, No Tenderness Extremities: Edema (unchanged) Wound: Dressing Clean/Dry/Intact Laboratory 06/11/16 05:10 06/22/16 08:40 Current Medications: Current meds reviewed in EMR. - Problems: Assessment/Plan (1) Cellulitis and abscess of lower extremity Status: AcuteAssessment/Plan: At IVDA injection site on medial R knee. Clinically Improved after I/D. Appears healing well. No evidence of deeper abscess or necrotizing fasciitis. Blood cx growing MRSA, urine and abscess both growing MRSA. Blood cultures neg since 05/26. Cont. vancomycin, anticipate staying until 07/04 . (2) Heroin abuse Status: ChronicAssessment/Plan: Long standing heavy use. Appreciate SW consult. Methadone for withdrawal sx and chronic addiction. High risk to use if discharged- plan for 6 weeks vanco therapy in hospital, unlikely to be able to get Methadone at SNF facility. Staying until 07/04. Drugs of Abuse Panel 06/08 negative for all but methadone. (3) Hepatitis C Qualifiers: Viral hepatitis chronicity: unspecified Status: ChronicAssessment/Plan: Unknown details. Supportive care. (4) Endocarditis Qualifiers: Endocarditis type: unspecified Chronicity: unspecified Qualifier Code: (I38) Endocarditis, valve unspecified Status: SuspectedAssessment/Plan : Suspected Infective Endocarditis based on multiple minor criteria and persistently positive blood cx (major criteria). TTE showed no vegetations. Blood cx results + for MRSA on 05/24 and 05/25 and negative thereafter. D/W ID- 6 weeks of Vancomycin. (5) Anasarca Status: ChronicAssessment/Plan: Improving. (6) Hypertension Qualifiers: Hypertension type: other secondary hypertension Qualifier Code: (I15.8 ) Other secondary hypertension Status: AcuteAssessment/Plan: improved with atenolol, cont. methadone. Control appears good. (7) Septic arthritis of shoulder, right Qualifiers: Septic arthritis organism: staphylococcal Qualifier Code: (M00.011) Staphylococcal arthritis, right shoulder Status: AcuteAssessment/Plan: Ortho following, arthocentesis growing MRSA, s/p washout. Vanco as above.-OT consult for ROM (8) UTI (urinary tract infection), bacterial Status: AcuteAssessment/Plan: due to MRSA, likely involving both kidneys given hematogenous spread of infection-adequately treated (9) Anemia Qualifiers: Anemia type: unspecified type Qualifier Code: (D64.9) Anemia, unspecified Status: AcuteAssessment/Plan: HGB down to 10.2 despite Lasix, B-12 and Folate are normal, iron studies consistent with iron deficiency also suspect anemia of chronic disease also- started iron VTE Prophylaxis: encourage activity. , previously with low platelets Disposition: 6 weeks of IV Vancomycin-will complete treatment in hospital. Planned d/c .
[2016-06-24] MEDS: PANTOPRAZOLE 40 MG TABLET DR PO SCH (09:11)
[2016-06-24] MEDS: ATENOLOL 50 MG TABLET PO SCH (09:11)
[2016-06-24] MEDS: Magnesium Oxide 400 MG TABLET PO SCH ×2 (09:11→21:42)
[2016-06-24] MEDS: VANCOMYCIN HCL IV SCH ×2 (09:12→21:41)
[2016-06-24] MEDS: METHADONE 10 MG TABLET PO SCH ×2 (09:12→21:42)
[2016-06-24] MEDS: ASCORBIC ACID 500 MG TABLET PO SCH (09:12)
[2016-06-24] MEDS: FERROUS SULFATE (65 Fe) 325 MG TABLET PO SCH (09:12)
[2016-06-24] MEDS: SODIUM CHLORIDE 0.9% IV SCH ×2 (09:12→21:41)
[2016-06-24] MEDS ORDERED: PUMP TUBING ONE (21:28)
[2016-06-25] MEDS: ACETAMINOPHEN 325 MG TABLET PO PRN (03:36)
[2016-06-25] MEDS: Magnesium Oxide 400 MG TABLET PO SCH ×2 (08:40→21:27)
[2016-06-25] MEDS: ASCORBIC ACID 500 MG TABLET PO SCH (08:40)
[2016-06-25] MEDS: ATENOLOL 50 MG TABLET PO SCH (08:40)
[2016-06-25] MEDS: METHADONE 10 MG TABLET PO SCH ×2 (08:40→21:27)
[2016-06-25] MEDS: PANTOPRAZOLE 40 MG TABLET DR PO SCH (08:40)
[2016-06-25] MEDS: FERROUS SULFATE (65 Fe) 325 MG TABLET PO SCH (08:40)
--- NOTE | 2016-06-25 09:34 | PDOC43 ---
- Subjective Chief Complaint: Endocarditis, septic shoulder, MRSA, IVDA Subjective: Reports Tolerating Diet Well, Denies Shortness of Breath, Denies Chest Pain, Denies Fever - Objective Vital Signs Temperature 98.2 F 06/25/16 07:25 Pulse Rate 77 06/25/16 07:25 Respiratory Rate 20 06/25/16 07:42 Blood Pressure 119/67 06/25/16 07:25 O2 Saturation by Pulse Oximetry 96 06/25/16 07:25 Oxygen Delivery Method Room Air Oxygen Flow Rate 0 Intake and Output 06/24/16 06/25/16 06/26/16 06:59 06:59 06:59 Intake Total 2200 4025 Output Total 3875 3775 400 Balance -1675 250 -400 General: Alert, Oriented x3, Cooperative, No Acute Distress HEENT: Mucous membr. moist/pink Lungs: Clear to Auscultation Bilaterally Cardiovascular: Regular Rate and Rhythm Abdomen: Soft, Normal Bowel Sounds, Non-Distended, No Tenderness Extremities: Edema (unchanged) Wound: Dressing Clean/Dry/Intact Laboratory 06/11/16 05:10 06/22/16 08:40 Current Medications: Current meds reviewed in EMR. - Problems: Assessment/Plan (1) Cellulitis and abscess of lower extremity Status: AcuteAssessment/Plan: At IVDA injection site on medial R knee. Clinically Improved after I/D. Appears healing well. No evidence of deeper abscess or necrotizing fasciitis. Blood cx growing MRSA, urine and abscess both growing MRSA. Blood cultures neg since 05/26. Cont. vancomycin, anticipate staying until 07/04 . (2) Heroin abuse Status: ChronicAssessment/Plan: Long standing heavy use. Appreciate SW consult. Methadone for withdrawal sx and chronic addiction. High risk to use if discharged- plan for 6 weeks vanco therapy in hospital, unlikely to be able to get Methadone at SNF facility. Staying until 07/04. Drugs of Abuse Panel 06/08 negative for all but methadone. (3) Hepatitis C Qualifiers: Viral hepatitis chronicity: unspecified Status: ChronicAssessment/Plan: Unknown details. Supportive care. (4) Endocarditis Qualifiers: Endocarditis type: unspecified Chronicity: unspecified Qualifier Code: (I38) Endocarditis, valve unspecified Status: SuspectedAssessment/Plan : Suspected Infective Endocarditis based on multiple minor criteria and persistently positive blood cx (major criteria). TTE showed no vegetations. Blood cx results + for MRSA on 05/24 and 05/25 and negative thereafter. D/W ID- 6 weeks of Vancomycin. (5) Anasarca Status: ChronicAssessment/Plan: Improving. (6) Hypertension Qualifiers: Hypertension type: other secondary hypertension Qualifier Code: (I15.8 ) Other secondary hypertension Status: AcuteAssessment/Plan: improved with atenolol, cont. methadone. Control appears good. (7) Septic arthritis of shoulder, right Qualifiers: Septic arthritis organism: staphylococcal Qualifier Code: (M00.011) Staphylococcal arthritis, right shoulder Status: AcuteAssessment/Plan: Ortho following, arthocentesis growing MRSA, s/p washout. Vanco as above.-OT consult for ROM (8) UTI (urinary tract infection), bacterial Status: AcuteAssessment/Plan: due to MRSA, likely involving both kidneys given hematogenous spread of infection-adequately treated (9) Anemia Qualifiers: Anemia type: unspecified type Qualifier Code: (D64.9) Anemia, unspecified Status: AcuteAssessment/Plan: HGB down to 10.2 despite Lasix, B-12 and Folate are normal, iron studies consistent with iron deficiency also suspect anemia of chronic disease also- started iron VTE Prophylaxis: encourage activity. , previously with low platelets Disposition: 6 weeks of IV Vancomycin-will complete treatment in hospital. Planned d/c .
[2016-06-25] MEDS: VANCOMYCIN HCL IV SCH ×2 (09:44→21:27)
[2016-06-25] MEDS: SODIUM CHLORIDE 0.9% IV SCH ×2 (09:44→21:27)
[2016-06-25] MEDS ORDERED: PUMP TUBING ONE (20:52)
[2016-06-25] MEDS: SODIUM CHLORIDE 0.9% 100 ML IV PRN (21:27)
[2016-06-26] MEDS: ACETAMINOPHEN 325 MG TABLET PO PRN ×2 (01:38→22:03)
[2016-06-26] MEDS: ASCORBIC ACID 500 MG TABLET PO SCH (08:35)
[2016-06-26] MEDS: Magnesium Oxide 400 MG TABLET PO SCH ×2 (08:35→22:04)
[2016-06-26] MEDS: METHADONE 10 MG TABLET PO SCH ×2 (08:35→22:04)
[2016-06-26] MEDS: PANTOPRAZOLE 40 MG TABLET DR PO SCH (08:35)
[2016-06-26] MEDS: ATENOLOL 50 MG TABLET PO SCH (08:36)
[2016-06-26] MEDS: FERROUS SULFATE (65 Fe) 325 MG TABLET PO SCH (08:36)
[2016-06-26 09:52] LABS: VANCOMYCIN TROUGH 18.8 ug/ml (5.0-10.0)
[2016-06-26] MEDS: VANCOMYCIN HCL IV SCH ×2 (10:00→22:10)
[2016-06-26] MEDS: SODIUM CHLORIDE 0.9% IV SCH ×2 (10:00→22:10)
--- NOTE | 2016-06-26 15:14 | PDOC43 ---
- Subjective Chief Complaint: Endocarditis, septic shoulder, MRSA, IVDA No new c/o's. Subjective: Reports Tolerating Diet Well, Denies Shortness of Breath, Denies Cough, Denies Chest Pain, Denies Abdominal Pain, Denies Nausea, Denies Vomiting , Denies Fever, Denies Chills - Objective Vital Signs Temperature 98.3 F 06/26/16 09:11 Pulse Rate 76 06/26/16 09:11 Respiratory Rate 18 06/26/16 09:11 Blood Pressure 130/87 06/26/16 09:11 O2 Saturation by Pulse Oximetry 95 06/26/16 09:11 Oxygen Delivery Method Room Air Oxygen Flow Rate 0 Intake and Output 06/25/16 06/26/16 06/27/16 06:59 06:59 06:59 Intake Total 4025 625 Output Total 3775 3375 Balance 250 -2750 General: Alert, Oriented x3, Cooperative, No Acute Distress HEENT: Atraumatic Lungs: Clear to Auscultation Bilaterally Cardiovascular: Regular Rate and Rhythm Abdomen: Soft, Non-Distended, No Tenderness Extremities: Edema Current Medications: Current meds reviewed in EMR. - Problems: Assessment/Plan (1) Endocarditis Qualifiers: Endocarditis type: unspecified Chronicity: unspecified Qualifier Code: (I38) Endocarditis, valve unspecified Status: SuspectedAssessment/Plan : Suspected Infective Endocarditis based on multiple minor criteria and persistently positive blood cx (major criteria). TTE showed no vegetations. Blood cx results + for MRSA on 05/24 and 05/25 and negative thereafter. D/W ID- 6 weeks of Vancomycin. (2) Septic arthritis of shoulder, right Qualifiers: Septic arthritis organism: staphylococcal Qualifier Code: (M00.011) Staphylococcal arthritis, right shoulder Status: AcuteAssessment/Plan: Ortho following, arthocentesis growing MRSA, s/p washout. Vanco as above.-OT consult for ROM (3) Cellulitis and abscess of lower extremity Status: AcuteAssessment/Plan: At IVDA injection site on medial R knee. Clinically Improved after I/D. Appears healing well. No evidence of deeper abscess or necrotizing fasciitis. Blood cx growing MRSA, urine and abscess both growing MRSA. Blood cultures neg since 05/26. Cont. vancomycin, anticipate staying until 07/04 . (4) Heroin abuse Status: ChronicAssessment/Plan: Long standing heavy use. Appreciate SW consult. Methadone for withdrawal sx and chronic addiction. High risk to use if discharged- plan for 6 weeks vanco therapy in hospital, unlikely to be able to get Methadone at SNF facility. Staying until 07/04. Drugs of Abuse Panel 06/08 negative for all but methadone. (5) Hepatitis C Qualifiers: Viral hepatitis chronicity: unspecified Status: ChronicAssessment/Plan: Unknown details. Supportive care. (6) Anasarca Status: ChronicAssessment/Plan: Improving. VTE Prophylaxis: encourage activity. , previously with low platelets Disposition: 6 weeks of IV Vancomycin-will complete treatment in hospital. Planned d/c .
[2016-06-26] MEDS ORDERED: PUMP TUBING ONE (21:54)
[2016-06-26] MEDS: SODIUM CHLORIDE 0.9% 100 ML IV PRN (22:11)
[2016-06-27] MEDS: FERROUS SULFATE (65 Fe) 325 MG TABLET PO SCH (09:16)
[2016-06-27] MEDS: ASCORBIC ACID 500 MG TABLET PO SCH (09:16)
[2016-06-27] MEDS: PANTOPRAZOLE 40 MG TABLET DR PO SCH (09:16)
[2016-06-27] MEDS: VANCOMYCIN HCL IV SCH ×2 (09:16→21:41)
[2016-06-27] MEDS: METHADONE 10 MG TABLET PO SCH ×2 (09:16→21:39)
[2016-06-27] MEDS: Magnesium Oxide 400 MG TABLET PO SCH ×2 (09:16→21:39)
[2016-06-27] MEDS: SODIUM CHLORIDE 0.9% IV SCH ×2 (09:16→21:41)
[2016-06-27] MEDS: ATENOLOL 50 MG TABLET PO SCH (09:17)
--- NOTE | 2016-06-27 11:06 | PDOC43 ---
- Subjective Chief Complaint: Endocarditis, septic shoulder, MRSA, IVDA No new c/o's. Subjective: Reports Pain Tolerable, Reports Tolerating Diet Well, Reports Adequate Oral Intake, Reports Urinating Without Difficulty, Denies Shortness of Breath, Denies Cough, Denies Chest Pain, Denies Abdominal Pain, Denies Nausea, Denies Vomiting, Denies Fever, Denies Chills - Objective Vital Signs Temperature 98.5 F 06/27/16 09:00 Pulse Rate 81 06/27/16 09:00 Respiratory Rate 18 06/27/16 09:00 Blood Pressure 151/80 06/27/16 09:00 O2 Saturation by Pulse Oximetry 98 06/27/16 09:00 Oxygen Delivery Method Room Air Oxygen Flow Rate 0 Intake and Output 06/26/16 06/27/16 06/28/16 06:59 06:59 06:59 Intake Total 625 1646 Output Total 3375 1900 Balance -6280 -254 General: Alert, Cooperative, No Acute Distress Laboratory 06/11/16 05:10 06/26/16 09:30 Current Medications: Current meds reviewed in EMR. - Problems: Assessment/Plan (1) Endocarditis Qualifiers: Endocarditis type: unspecified Chronicity: unspecified Qualifier Code: (I38) Endocarditis, valve unspecified Status: SuspectedAssessment/Plan : Suspected Infective Endocarditis based on multiple minor criteria and persistently positive blood cx (major criteria). TTE showed no vegetations. Blood cx results + for MRSA on 05/24 and 05/25 and negative thereafter. D/W ID- 6 weeks of Vancomycin. (2) Septic arthritis of shoulder, right Qualifiers: Septic arthritis organism: staphylococcal Qualifier Code: (M00.011) Staphylococcal arthritis, right shoulder Status: AcuteAssessment/Plan: Ortho following, arthocentesis growing MRSA, s/p washout. Vanco as above.-OT consult for ROM (3) Cellulitis and abscess of lower extremity Status: AcuteAssessment/Plan: At IVDA injection site on medial R knee. Clinically Improved after I/D. Appears healing well. No evidence of deeper abscess or necrotizing fasciitis. Blood cx growing MRSA, urine and abscess both growing MRSA. Blood cultures neg since 05/26. Cont. vancomycin, anticipate staying until 07/04 . (4) Heroin abuse Status: ChronicAssessment/Plan: Long standing heavy use. Appreciate SW consult. Methadone for withdrawal sx and chronic addiction. High risk to use if discharged- plan for 6 weeks vanco therapy in hospital, unlikely to be able to get Methadone at SNF facility. Staying until 07/04. Drugs of Abuse Panel 06/08 negative for all but methadone. (5) Hepatitis C Qualifiers: Viral hepatitis chronicity: unspecified Status: ChronicAssessment/Plan: Unknown details. Supportive care. (6) Anasarca Status: ChronicAssessment/Plan: Improving. VTE Prophylaxis: encourage activity. , previously with low platelets Disposition: 6 weeks of IV Vancomycin-will complete treatment in hospital. Planned d/c .
[2016-06-27] MEDS: ACETAMINOPHEN 325 MG TABLET PO PRN (23:22)
[2016-06-28] MEDS ORDERED: PUMP TUBING ONE ×2 (09:11→21:48)
[2016-06-28] MEDS: Magnesium Oxide 400 MG TABLET PO SCH ×2 (09:14→21:56)
[2016-06-28] MEDS: FERROUS SULFATE (65 Fe) 325 MG TABLET PO SCH (09:14)
[2016-06-28] MEDS: PANTOPRAZOLE 40 MG TABLET DR PO SCH (09:15)
[2016-06-28] MEDS: METHADONE 10 MG TABLET PO SCH ×2 (09:15→21:56)
[2016-06-28] MEDS: ASCORBIC ACID 500 MG TABLET PO SCH (09:16)
[2016-06-28] MEDS: VANCOMYCIN HCL IV SCH ×2 (09:16→21:56)
[2016-06-28] MEDS: SODIUM CHLORIDE 0.9% IV SCH ×2 (09:16→21:56)
[2016-06-28] MEDS: SODIUM CHLORIDE 0.9% 100 ML IV PRN (09:16)
[2016-06-28] MEDS: ATENOLOL 50 MG TABLET PO SCH (09:16)
--- NOTE | 2016-06-28 14:44 | PDOC43 ---
- Subjective Chief Complaint: Endocarditis, septic shoulder, MRSA, IVDA Patient reports feeling a bit better each day. Shoulder/arm movement improving, leg improving. Slow improvement in leg swelling. No new c/o. - Objective Vital Signs Temperature 98.0 F 06/28/16 08:00 Pulse Rate 75 06/28/16 08:00 Respiratory Rate 18 06/28/16 09:27 Blood Pressure 138/90 06/28/16 08:00 O2 Saturation by Pulse Oximetry 95 06/28/16 08:00 Oxygen Delivery Method Room Air Oxygen Flow Rate 0 Vital Signs Last 12 Hours Temp Pulse Resp BP Pulse Ox 06/28/16 09:27 18 06/28/16 08:00 98.0 F 75 18 138/90 95 Intake and Output 06/26/16 06/27/16 06/28/16 23:59 23:59 23:59 Intake Total 820 3056 1999 Output Total 0901 8039 1312 Balance -1155 -844 -875 General: Alert, Cooperative, No Acute Distress HEENT: Atraumatic Lungs: Clear to Auscultation Bilaterally, Normal Air Movement Cardiovascular: Regular Rate and Rhythm, No Murmur Abdomen: Soft, No Tenderness Extremities: Edema (chronic edema bilat LE, no erythema noted. Dressing on post R knee.) Skin: Normal Color Neurological: Normal Speech Psych/Mental Status: Normal Affect, Normal Mood Laboratory 06/11/16 05:10 06/28/16 05:30 Current Medications: Current meds reviewed in EMR. Active Medications Acetaminophen (Tylenol) 650 mg PO Q6H PRN PRN Reason: Mild Pain Or Temp > 100.5 F Last Admin: 06/27/16 23:22 Dose: 650 mg Albuterol Sulfate (Ventolin Inhalation Solution (Dose)) 2.5 mg NEB Q2H PRN PRN Reason: Wheezing Last Admin: 05/25/16 19:46 Dose: 2.5 mg Albuterol/Ipratropium (Duoneb) 3 ml NEB Q6H PRN PRN Reason: Wheezing or Dyspnea Last Admin: 06/07/16 23:01 Dose: 3 ml Ascorbic Acid (Vitamin C) 500 mg PO DAILY [facility] Last Admin: 06/28/16 09:16 Dose: 500 mg Atenolol (Tenormin) 50 mg PO DAILY [facility] Last Admin: 06/28/16 09:16 Dose: 50 mg Benzocaine/Menthol (Cepacol) 1 each PO PRN PRN PRN Reason: Sore Throat Bisacodyl (Dulcolax) 10 mg [place] DAILY PRN PRN Reason: Constipation Bisacodyl (Dulcolax) 5 mg PO DAILY PRN PRN Reason: Constipation Diphenhydramine HCl (Benadryl) 25 - 50 mg IV Q6H PRN PRN Reason: Severe Itching Last Admin: 06/13/16 21:18 Dose: 50 mg Diphenhydramine HCl (Benadryl) 25 - 50 mg PO QID PRN PRN Reason: Itching Last Admin: 06/04/16 15:41 Dose: 50 mg Ferrous Sulfate (Ferrous Sulfate) 325 mg PO DAILY [facility] Last Admin: 06/28/16 09:14 Dose: 325 mg Furosemide (Lasix) 40 mg PO DAILY [facility] Last Admin: 06/13/16 08:12 Dose: 40 mg Sodium Chloride (Sodium Chloride 0.9%) 100 mls @ 25 mls/hr IV PRN PRN PRN Reason: Flush Last Admin: 06/28/16 09:16 Dose: 25 mls/hr Promethazine HCl 12.5 mg/ (Sodium Chloride) 50.5 mls @ 200 mls/hr IV Q4H PRN PRN Reason: Nausea/Vomiting Vancomycin HCl 1.25 g/ Sodium (Chloride) 250 mls @ 166.667 mls/hr IV Q12H [facility] Last Admin: 06/28/16 09:16 Dose: 166.667 mls/hr Magnesium Hydroxide (Milk Of Magnesia) 30 ml PO DAILY PRN PRN Reason: Constipation Magnesium Oxide (Magnesium Oxide) 800 mg PO BID [facility] Last Admin: 06/28/16 09:14 Dose: 800 mg Methadone HCl (Methadone) 20 mg PO Q12H [facility] Last Admin: 06/28/16 09:15 Dose: 20 mg Ondansetron HCl (Zofran) 4 mg IV Q6H PRN PRN Reason: Nausea/Vomiting Pantoprazole Sodium (Protonix) 40 mg PO DAILY [facility] Last Admin: 06/28/16 09:15 Dose: 40 mg Petrolatum/Paraffin/Mineral Oil (Blistex) 1 each TP PRN PRN PRN Reason: Dry and/or chapped lips Sodium Chloride (Normal Saline 10ml Flush) 10 - 50 ml IV PRN PRN PRN Reason: IV Flush Last Admin: 06/28/16 10:55 Dose: 10 ml Sodium Chloride (Normal Saline 10ml Flush) 10 ml IV Q8HR [facility] Last Admin: 06/28/16 09:15 Dose: 10 ml - Problems: Assessment/Plan (1) Cellulitis and abscess of lower extremity Status: AcuteAssessment/Plan: At IVDA injection site on medial R knee. Clinically Improved after I/D. Appears healing well. No evidence of deeper abscess or necrotizing fasciitis. Blood cx growing MRSA, urine and abscess both growing MRSA. Blood cultures neg since 05/26. Cont. vancomycin, anticipate staying until 07/04 . (2) Septic arthritis of shoulder, right Qualifiers: Septic arthritis organism: staphylococcal Qualifier Code: (M00.011) Staphylococcal arthritis, right shoulder Status: AcuteAssessment/Plan: Ortho following, arthocentesis growing MRSA, s/p washout. Vanco as above.-OT consult for ROM (3) Hypertension Qualifiers: Hypertension type: other secondary hypertension Qualifier Code: (I15.8 ) Other secondary hypertension Status: AcuteAssessment/Plan: improved with atenolol, cont. methadone. Control appears good. (4) Anasarca Status: ChronicAssessment/Plan: Improving. (5) Heroin abuse Status: ChronicAssessment/Plan: Long standing heavy use, appreciate SW consult. Methadone for withdrawal sx and chronic addiction. High risk to use if discharged- plan for 6 weeks vanco therapy in hospital, unlikely to be able to get Methadone at SNF facility. Staying until 07/04. Drugs of Abuse Panel 3/3 negative for all but methadone. VTE Prophylaxis: encourage activity, previously with low platelets Disposition: 6 weeks of IV Vancomycin-will complete treatment in hospital. Planned d/c .
--- NOTE | 2016-06-29 06:34 | PDOC43 ---
- Subjective Chief Complaint: Endocarditis, septic shoulder, MRSA, IVDA Patient reports feeling ok. No new c/o. ROM shoulder improving. Breathing fine, eating fine. Ambulation good. - Objective Vital Signs Temperature 98.2 F 06/28/16 19:08 Pulse Rate 68 06/28/16 19:08 Respiratory Rate 18 06/29/16 03:46 Blood Pressure 150/86 06/28/16 19:08 O2 Saturation by Pulse Oximetry 99 06/28/16 19:08 Oxygen Delivery Method Room Air Oxygen Flow Rate 0 Vital Signs Last 12 Hours Temp Pulse Resp BP Pulse Ox 06/29/16 03:46 18 06/28/16 19:08 98.2 F 68 18 150/86 99 Intake and Output 06/27/16 06/28/16 06/29/16 23:59 23:59 23:59 Intake Total 3056 4237 650 Output Total 3900 3575 1275 Balance -844 662 -625 General: Alert (sleeping in chair, but arouses easily.), Cooperative, No Acute Distress Lungs: Clear to Auscultation Bilaterally, Normal Air Movement, Other (husky voice, unchanged.) Cardiovascular: Regular Rate and Rhythm, Murmur Abdomen: Soft, Normal Bowel Sounds, Non-Distended, No Tenderness Extremities: Edema (some chronic edema, suggest of chronic lower extremity dependency.) Neurological: Normal Speech (husky voice, at baseline.) Psych/Mental Status: Other (pleasant) Laboratory 06/11/16 05:10 06/28/16 05:30 Current Medications: Current meds reviewed in EMR. Active Medications Acetaminophen (Tylenol) 650 mg PO Q6H PRN PRN Reason: Mild Pain Or Temp > 100.5 F Last Admin: 06/27/16 23:22 Dose: 650 mg Albuterol Sulfate (Ventolin Inhalation Solution (Dose)) 2.5 mg NEB Q2H PRN PRN Reason: Wheezing Last Admin: 05/25/16 19:46 Dose: 2.5 mg Albuterol/Ipratropium (Duoneb) 3 ml NEB Q6H PRN PRN Reason: Wheezing or Dyspnea Last Admin: 06/07/16 23:01 Dose: 3 ml Ascorbic Acid (Vitamin C) 500 mg PO DAILY [facility] Last Admin: 06/28/16 09:16 Dose: 500 mg Atenolol (Tenormin) 50 mg PO DAILY [facility] Last Admin: 06/28/16 09:16 Dose: 50 mg Benzocaine/Menthol (Cepacol) 1 each PO PRN PRN PRN Reason: Sore Throat Bisacodyl (Dulcolax) 10 mg [place] DAILY PRN PRN Reason: Constipation Bisacodyl (Dulcolax) 5 mg PO DAILY PRN PRN Reason: Constipation Diphenhydramine HCl (Benadryl) 25 - 50 mg IV Q6H PRN PRN Reason: Severe Itching Last Admin: 06/13/16 21:18 Dose: 50 mg Diphenhydramine HCl (Benadryl) 25 - 50 mg PO QID PRN PRN Reason: Itching Last Admin: 06/04/16 15:41 Dose: 50 mg Ferrous Sulfate (Ferrous Sulfate) 325 mg PO DAILY [facility] Last Admin: 06/28/16 09:14 Dose: 325 mg Furosemide (Lasix) 40 mg PO DAILY [facility] Last Admin: 06/13/16 08:12 Dose: 40 mg Sodium Chloride (Sodium Chloride 0.9%) 100 mls @ 25 mls/hr IV PRN PRN PRN Reason: Flush Last Admin: 06/28/16 09:16 Dose: 25 mls/hr Promethazine HCl 12.5 mg/ (Sodium Chloride) 50.5 mls @ 200 mls/hr IV Q4H PRN PRN Reason: Nausea/Vomiting Vancomycin HCl 1.25 g/ Sodium (Chloride) 250 mls @ 166.667 mls/hr IV Q12H [facility] Last Admin: 06/28/16 21:56 Dose: 166.667 mls/hr Magnesium Hydroxide (Milk Of Magnesia) 30 ml PO DAILY PRN PRN Reason: Constipation Magnesium Oxide (Magnesium Oxide) 800 mg PO BID [facility] Last Admin: 06/28/16 21:56 Dose: 800 mg Methadone HCl (Methadone) 20 mg PO Q12H [facility] Last Admin: 06/28/16 21:56 Dose: 20 mg Ondansetron HCl (Zofran) 4 mg IV Q6H PRN PRN Reason: Nausea/Vomiting Pantoprazole Sodium (Protonix) 40 mg PO DAILY [facility] Last Admin: 06/28/16 09:15 Dose: 40 mg Petrolatum/Paraffin/Mineral Oil (Blistex) 1 each TP PRN PRN PRN Reason: Dry and/or chapped lips Sodium Chloride (Normal Saline 10ml Flush) 10 - 50 ml IV PRN PRN PRN Reason: IV Flush Last Admin: 06/28/16 10:55 Dose: 10 ml Sodium Chloride (Normal Saline 10ml Flush) 10 ml IV Q8HR MIR Last Admin: 06/29/16 05:15 Dose: Not Given - Problems: Assessment/Plan (1) Cellulitis and abscess of lower extremity Status: AcuteAssessment/Plan: At IVDA injection site on medial R knee. Clinically Improved after I/D. Appears healing well. Blood cx growing MRSA, urine and abscess both growing MRSA. Blood cultures neg since 05/26. Cont. vancomycin, anticipate staying until 07/04 . (2) Endocarditis Qualifiers: Endocarditis type: infective Infective endocarditis organism: bacterial Chronicity: unspecified Qualifier Code: (I33.0) Acute and subacute infective endocarditis Status: SuspectedAssessment/Plan: Suspected Infective Endocarditis based on multiple minor criteria and persistently positive blood cx (major criteria). TTE showed no vegetations. Blood cx results + for MRSA on 05/24 and 05/25 and negative thereafter. previously discussed with ID-> 6 weeks of Vancomycin, anticipating will complete course 07/04. (3) Septic arthritis of shoulder, right Qualifiers: Septic arthritis organism: staphylococcal Qualifier Code: (M00.011) Staphylococcal arthritis, right shoulder Status: AcuteAssessment/Plan: Ortho following, arthocentesis growing MRSA, s/p washout. Vanco as above.-OT consult for ROM (4) Hypertension Qualifiers: Hypertension type: other secondary hypertension Qualifier Code: (I15.8 ) Other secondary hypertension Status: AcuteAssessment/Plan: improved with atenolol, cont. methadone. Control appears good. (5) Anasarca Status: ChronicAssessment/Plan: Improving slowly. (6) Heroin abuse Status: ChronicAssessment/Plan: Long standing heavy use, appreciate SW consult. Methadone for withdrawal sx and chronic addiction. High risk to use if discharged- plan for 6 weeks vanco therapy in hospital, unlikely to be able to get Methadone at SNF facility. Staying until 07/04. Drugs of Abuse Panel 06/08 negative for all but methadone. VTE Prophylaxis: encourage activity, previously with low platelets Disposition: 6 weeks of IV Vancomycin-will complete treatment in hospital. Planned d/c .
[2016-06-29 07:50] LABS: ABSOLUTE NEUTROPHIL COUNT 3.7 K/mm3 (1.8-7.7); BASO % 0.6 % (0.2-1.0); EOS # 0.2 (0.0-0.5); EOS % 3.3 % (0.9-2.9); HEMATOCRIT 36.5 % (32.0-52.0); HEMOGLOBIN 11.2 gm/l (14.0-18.0); IMM NEUT% 0.2 % (0-1); LYMPH # 1.4 (1.0-4.8); LYMPH % 22.1 % (15-45); MEAN CELL VOLUME 89.9 fl (80.0-94.0); MEAN CORPUSCULAR HEMOGLOBIN 27.6 pg (27.0-31.0); MEAN CORPUSCULAR HGB CONC 30.7 g/dl (33.0-37.0); MEAN PLATELET VOLUME 11.1 fl (7.4-10.4); NEUT % 57.8 % (43-75); PLATELET COUNT 156 K/mm3 (130-400); RED CELL DISTRIBUTION WIDTH 14.5 % (11.5-14.5)
[2016-06-29] MEDS: ATENOLOL 50 MG TABLET PO SCH (08:01)
[2016-06-29] MEDS: METHADONE 10 MG TABLET PO SCH ×2 (08:01→21:41)
[2016-06-29] MEDS: PANTOPRAZOLE 40 MG TABLET DR PO SCH (08:01)
[2016-06-29] MEDS: ASCORBIC ACID 500 MG TABLET PO SCH (08:01)
[2016-06-29] MEDS: FERROUS SULFATE (65 Fe) 325 MG TABLET PO SCH (08:01)
[2016-06-29] MEDS: Magnesium Oxide 400 MG TABLET PO SCH ×2 (08:01→21:41)
[2016-06-29 08:13] LABS: ALB/GLOB RATIO 0.4 (>1.0); ALBUMIN 2.3 gm/dL (3.5-5.7); CALCIUM 8.5 mg/dL (8.6-10.3)
[2016-06-29] MEDS ORDERED: VANCOMYCIN HCL 1 G in SODIUM CHLORIDE 0.9% 250 ML IV SCH (12:33)
[2016-06-29] MEDS: VANCOMYCIN HCL IV SCH (12:40)
[2016-06-29] MEDS: SODIUM CHLORIDE 0.9% IV SCH (12:40)
[2016-06-29 14:03] LABS: VANCOMYCIN TROUGH 20.9 ug/ml (5.0-10.0)
[2016-06-29] MEDS: VANCOMYCIN HCL 1 G in SODIUM CHLORIDE 0.9% 230 ML IV SCH (21:41)
--- NOTE | 2016-06-30 08:33 | PDOC43 ---
- Subjective Chief Complaint: Endocarditis, septic shoulder, MRSA, IVDA Subjective: Denies Shortness of Breath, Denies Chest Pain, Denies Fever - Objective Vital Signs Temperature 97.9 F 06/29/16 19:11 Pulse Rate 82 06/29/16 19:11 Respiratory Rate 20 06/30/16 05:00 Blood Pressure 156/84 06/29/16 19:11 O2 Saturation by Pulse Oximetry 95 06/29/16 19:11 Oxygen Delivery Method Room Air Oxygen Flow Rate 0 Intake and Output 06/29/16 06/30/16 07/01/16 06:59 06:59 06:59 Intake Total 3127 1711 Output Total 3150 1750 Balance -23 -39 General: Alert, Oriented x3, Cooperative, No Acute Distress HEENT: Mucous membr. moist/pink Lungs: Clear to Auscultation Bilaterally Cardiovascular: Regular Rate and Rhythm Abdomen: Soft, Normal Bowel Sounds, Non-Distended, No Tenderness Extremities: Edema (stable) Laboratory 06/29/16 07:46 06/30/16 06:30 06/29/16 08:30 Vancomycin Trough 20.9 H Current Medications: Current meds reviewed in EMR. - Problems: Assessment/Plan (1) Cellulitis and abscess of lower extremity Status: AcuteAssessment/Plan: At IVDA injection site on medial R knee. Clinically Improved after I/D. Appears healing well. Blood cx growing MRSA, urine and abscess both growing MRSA. Blood cultures neg since 05/26. Cont. vancomycin, anticipate staying until 07/04 . (2) Heroin abuse Status: ChronicAssessment/Plan: Long standing heavy use, appreciate SW consult. Methadone for withdrawal sx and chronic addiction. High risk to use if discharged- plan for 6 weeks vanco therapy in hospital, unlikely to be able to get Methadone at SNF facility. Staying until 07/04. Drugs of Abuse Panel 06/08 negative for all but methadone. (3) Hepatitis C Qualifiers: Viral hepatitis chronicity: unspecified Status: ChronicAssessment/Plan: Unknown details. Supportive care. (4) Endocarditis Qualifiers: Endocarditis type: infective Infective endocarditis organism: bacterial Chronicity: unspecified Qualifier Code: (I33.0) Acute and subacute infective endocarditis Status: SuspectedAssessment/Plan: Suspected Infective Endocarditis based on multiple minor criteria and persistently positive blood cx (major criteria). TTE showed no vegetations. Blood cx results + for MRSA on 05/24 and 05/25 and negative thereafter. previously discussed with ID-> 6 weeks of Vancomycin, anticipating will complete course 07/04. (5) Anasarca Status: ChronicAssessment/Plan: Improving slowly. (6) Hypertension Qualifiers: Hypertension type: other secondary hypertension Qualifier Code: (I15.8 ) Other secondary hypertension Status: AcuteAssessment/Plan: improved with atenolol, cont. methadone. Control appears good. (7) Septic arthritis of shoulder, right Qualifiers: Septic arthritis organism: staphylococcal Qualifier Code: (M00.011) Staphylococcal arthritis, right shoulder Status: AcuteAssessment/Plan: Ortho following, arthocentesis growing MRSA, s/p washout. Vanco as above.-OT consult for ROM (8) UTI (urinary tract infection), bacterial Status: AcuteAssessment/Plan: due to MRSA, likely involving both kidneys given hematogenous spread of infection-adequately treated (9) Anemia Qualifiers: Anemia type: unspecified type Qualifier Code: (D64.9) Anemia, unspecified Status: AcuteAssessment/Plan: HGB down to 10.2 despite Lasix, B-12 and Folate are normal, iron studies consistent with iron deficiency also suspect anemia of chronic disease also- started iron VTE Prophylaxis: encourage activity, previously with low platelets Disposition: 6 weeks of IV Vancomycin-will complete treatment in hospital. Planned d/c .
[2016-06-30] MEDS ORDERED: PUMP TUBING ONE (09:32)
[2016-06-30] MEDS: VANCOMYCIN HCL 1 G in SODIUM CHLORIDE 0.9% 230 ML IV SCH (09:44)
[2016-06-30] MEDS: SODIUM CHLORIDE 0.9% 100 ML IV PRN (09:44)
[2016-06-30] MEDS: Magnesium Oxide 400 MG TABLET PO SCH ×2 (09:45→23:03)
[2016-06-30] MEDS: PANTOPRAZOLE 40 MG TABLET DR PO SCH (09:45)
[2016-06-30] MEDS: METHADONE 10 MG TABLET PO SCH ×2 (09:46→23:04)
[2016-06-30] MEDS: ASCORBIC ACID 500 MG TABLET PO SCH (09:46)
[2016-06-30] MEDS: ATENOLOL 50 MG TABLET PO SCH (09:46)
[2016-06-30] MEDS: FERROUS SULFATE (65 Fe) 325 MG TABLET PO SCH (09:46)
[2016-06-30] MEDS: ACETAMINOPHEN 325 MG TABLET PO PRN (23:03)
[2016-06-30] MEDS: VANCOMYCIN HCL 1 G in SODIUM CHLORIDE 0.9% 250 ML IV SCH (23:04)
[2016-07-01] MEDS: PANTOPRAZOLE 40 MG TABLET DR PO SCH (09:48)
[2016-07-01] MEDS: ATENOLOL 50 MG TABLET PO SCH (09:48)
[2016-07-01] MEDS: ASCORBIC ACID 500 MG TABLET PO SCH (09:49)
[2016-07-01] MEDS: Magnesium Oxide 400 MG TABLET PO SCH ×2 (09:49→21:46)
[2016-07-01] MEDS: FERROUS SULFATE (65 Fe) 325 MG TABLET PO SCH (09:49)
[2016-07-01] MEDS: METHADONE 10 MG TABLET PO SCH ×2 (09:49→21:46)
[2016-07-01] MEDS: VANCOMYCIN HCL 1 G in SODIUM CHLORIDE 0.9% 250 ML IV SCH ×2 (10:55→21:46)
--- NOTE | 2016-07-01 13:03 | PDOC43 ---
- Subjective Chief Complaint: Endocarditis, septic shoulder, MRSA, IVDA Subjective: Reports Tolerating Diet Well, Denies Shortness of Breath, Denies Chest Pain, Denies Fever - Objective Vital Signs Temperature 98.3 F 07/01/16 09:26 Pulse Rate 70 07/01/16 09:26 Respiratory Rate 18 07/01/16 09:54 Blood Pressure 128/80 07/01/16 09:26 O2 Saturation by Pulse Oximetry 96 07/01/16 09:26 Oxygen Delivery Method Room Air Oxygen Flow Rate 0 Intake and Output 06/30/16 07/01/16 07/02/16 06:59 06:59 06:59 Intake Total 1711 4078 Output Total 1750 3550 1000 Balance -39 528 -1000 General: Alert, Oriented x3, Cooperative, No Acute Distress HEENT: Mucous membr. moist/pink Lungs: Clear to Auscultation Bilaterally Cardiovascular: Regular Rate and Rhythm Abdomen: Soft, Normal Bowel Sounds, Non-Distended, No Tenderness Extremities: Edema (unchanged) Laboratory 06/29/16 07:46 07/01/16 06:30 Current Medications: Current meds reviewed in EMR. - Problems: Assessment/Plan (1) Cellulitis and abscess of lower extremity Status: AcuteAssessment/Plan: At IVDA injection site on medial R knee. Clinically Improved after I/D. Appears healing well. Blood cx growing MRSA, urine and abscess both growing MRSA. Blood cultures neg since 05/26. Cont. vancomycin, anticipate staying until 07/04 . (2) Heroin abuse Status: ChronicAssessment/Plan: Long standing heavy use, appreciate SW consult. Methadone for withdrawal sx and chronic addiction. High risk to use if discharged- plan for 6 weeks vanco therapy in hospital, unlikely to be able to get Methadone at SNF facility. Staying until 07/04. Drugs of Abuse Panel 06/08 negative for all but methadone. (3) Hepatitis C Qualifiers: Viral hepatitis chronicity: unspecified Status: ChronicAssessment/Plan: Unknown details. Supportive care. (4) Endocarditis Qualifiers: Endocarditis type: infective Infective endocarditis organism: bacterial Chronicity: unspecified Qualifier Code: (I33.0) Acute and subacute infective endocarditis Status: SuspectedAssessment/Plan: Suspected Infective Endocarditis based on multiple minor criteria and persistently positive blood cx (major criteria). TTE showed no vegetations. Blood cx results + for MRSA on 05/24 and 05/25 and negative thereafter. previously discussed with ID-> 6 weeks of Vancomycin, anticipating will complete course 07/04. (5) Anasarca Status: ChronicAssessment/Plan: Improving slowly. (6) Hypertension Qualifiers: Hypertension type: other secondary hypertension Qualifier Code: (I15.8 ) Other secondary hypertension Status: AcuteAssessment/Plan: improved with atenolol, cont. methadone. Control appears good. (7) Septic arthritis of shoulder, right Qualifiers: Septic arthritis organism: staphylococcal Qualifier Code: (M00.011) Staphylococcal arthritis, right shoulder Status: AcuteAssessment/Plan: Ortho following, arthocentesis growing MRSA, s/p washout. Vanco as above.-OT consult for ROM (8) UTI (urinary tract infection), bacterial Status: AcuteAssessment/Plan: due to MRSA, likely involving both kidneys given hematogenous spread of infection-adequately treated (9) Anemia Qualifiers: Anemia type: unspecified type Qualifier Code: (D64.9) Anemia, unspecified Status: AcuteAssessment/Plan: HGB down to 10.2 despite Lasix, B-12 and Folate are normal, iron studies consistent with iron deficiency also suspect anemia of chronic disease also- started iron VTE Prophylaxis: encourage activity, previously with low platelets Disposition: 6 weeks of IV Vancomycin-will complete treatment in hospital. Planned d/c .
[2016-07-02] MEDS: ACETAMINOPHEN 325 MG TABLET PO PRN (04:12)
--- NOTE | 2016-07-02 06:45 | PDOC43 ---
- Subjective Chief Complaint: Endocarditis, septic shoulder, MRSA, IVDA Subjective: Reports Tolerating Diet Well, Denies Shortness of Breath, Denies Chest Pain, Denies Fever - Objective Vital Signs Temperature 97.7 F 07/01/16 19:26 Pulse Rate 70 07/01/16 19:26 Respiratory Rate 20 07/02/16 03:15 Blood Pressure 150/80 07/01/16 19:26 O2 Saturation by Pulse Oximetry 98 07/01/16 19:26 Oxygen Delivery Method Room Air Oxygen Flow Rate 0 Intake and Output 06/30/16 07/01/16 07/02/16 06:59 06:59 06:59 Intake Total 1711 4078 1640 Output Total 1750 2200 3525 Balance -39 528 -1885 General: Alert, Oriented x3, Cooperative, No Acute Distress HEENT: Mucous membr. moist/pink Lungs: Clear to Auscultation Bilaterally Cardiovascular: Regular Rate and Rhythm Abdomen: Soft, Non-Distended, No Tenderness Extremities: Edema (unchanged) Skin: Warm, Dry Laboratory 06/29/16 07:46 07/02/16 05:00 Current Medications: Current meds reviewed in EMR. - Problems: Assessment/Plan (1) Cellulitis and abscess of lower extremity Status: AcuteAssessment/Plan: At IVDA injection site on medial R knee. Clinically Improved after I/D. Appears healing well. Blood cx growing MRSA, urine and abscess both growing MRSA. Blood cultures neg since 05/26. Cont. vancomycin, anticipate staying until 07/04 . (2) Heroin abuse Status: ChronicAssessment/Plan: Long standing heavy use, appreciate SW consult. Methadone for withdrawal sx and chronic addiction. High risk to use if discharged- plan for 6 weeks vanco therapy in hospital, unlikely to be able to get Methadone at SNF facility. Staying until 07/04. Drugs of Abuse Panel 06/08 negative for all but methadone. (3) Hepatitis C Qualifiers: Viral hepatitis chronicity: unspecified Status: ChronicAssessment/Plan: Unknown details. Supportive care. (4) Endocarditis Qualifiers: Endocarditis type: infective Infective endocarditis organism: bacterial Chronicity: unspecified Qualifier Code: (I33.0) Acute and subacute infective endocarditis Status: SuspectedAssessment/Plan: Suspected Infective Endocarditis based on multiple minor criteria and persistently positive blood cx (major criteria). TTE showed no vegetations. Blood cx results + for MRSA on 05/24 and 05/25 and negative thereafter. previously discussed with ID-> 6 weeks of Vancomycin, anticipating will complete course 07/04. (5) Anasarca Status: ChronicAssessment/Plan: Improving slowly. (6) Hypertension Qualifiers: Hypertension type: other secondary hypertension Qualifier Code: (I15.8 ) Other secondary hypertension Status: AcuteAssessment/Plan: improved with atenolol, cont. methadone. Control appears good. (7) Septic arthritis of shoulder, right Qualifiers: Septic arthritis organism: staphylococcal Qualifier Code: (M00.011) Staphylococcal arthritis, right shoulder Status: AcuteAssessment/Plan: Ortho following, arthocentesis growing MRSA, s/p washout. Vanco as above.-OT consult for ROM (8) UTI (urinary tract infection), bacterial Status: AcuteAssessment/Plan: due to MRSA, likely involving both kidneys given hematogenous spread of infection-adequately treated (9) Anemia Qualifiers: Anemia type: unspecified type Qualifier Code: (D64.9) Anemia, unspecified Status: AcuteAssessment/Plan: HGB down to 10.2 despite Lasix, B-12 and Folate are normal, iron studies consistent with iron deficiency also suspect anemia of chronic disease also- started iron VTE Prophylaxis: encourage activity, previously with low platelets Disposition: 6 weeks of IV Vancomycin-will complete treatment in hospital. Planned d/c .
[2016-07-02] MEDS ORDERED: PUMP TUBING ONE (09:48)
[2016-07-02] MEDS: FERROUS SULFATE (65 Fe) 325 MG TABLET PO SCH (10:00)
[2016-07-02] MEDS: PANTOPRAZOLE 40 MG TABLET DR PO SCH (10:00)
[2016-07-02] MEDS: METHADONE 10 MG TABLET PO SCH ×2 (10:00→19:59)
[2016-07-02] MEDS: ASCORBIC ACID 500 MG TABLET PO SCH (10:01)
[2016-07-02] MEDS: Magnesium Oxide 400 MG TABLET PO SCH ×2 (10:01→19:59)
[2016-07-02] MEDS: SODIUM CHLORIDE 0.9% 100 ML IV PRN (10:01)
[2016-07-02] MEDS: ATENOLOL 50 MG TABLET PO SCH (10:01)
[2016-07-02] MEDS: VANCOMYCIN HCL 1 G in SODIUM CHLORIDE 0.9% 250 ML IV SCH ×2 (10:01→22:25)
[2016-07-03] MEDS: FERROUS SULFATE (65 Fe) 325 MG TABLET PO SCH (08:56)
[2016-07-03] MEDS: Magnesium Oxide 400 MG TABLET PO SCH ×2 (08:56→21:26)
[2016-07-03] MEDS: PANTOPRAZOLE 40 MG TABLET DR PO SCH (08:57)
[2016-07-03] MEDS: ATENOLOL 50 MG TABLET PO SCH (08:57)
[2016-07-03] MEDS: ASCORBIC ACID 500 MG TABLET PO SCH (08:57)
[2016-07-03] MEDS ORDERED: PUMP TUBING ONE (09:40)
[2016-07-03] MEDS: VANCOMYCIN HCL 1 G in SODIUM CHLORIDE 0.9% 250 ML IV SCH ×2 (09:43→21:27)
[2016-07-03] MEDS: METHADONE 10 MG TABLET PO SCH (13:31)
--- NOTE | 2016-07-03 15:51 | PDOC43 ---
- Subjective Chief Complaint: Endocarditis, septic shoulder, MRSA, IVDA Patient standing in room, watching TV. No complaints, feeling good. Breathing good, stomach good. Shoulder and knee improving. No c/o, eager for DC 07/04 - Objective Vital Signs Temperature 97.9 F 07/03/16 07:16 Pulse Rate 66 07/03/16 07:16 Respiratory Rate 18 07/03/16 07:16 Blood Pressure 131/80 07/03/16 07:16 O2 Saturation by Pulse Oximetry 96 07/03/16 07:16 Oxygen Delivery Method Room Air Oxygen Flow Rate 0 Vital Signs Last 12 Hours Temp Pulse Resp BP Pulse Ox 07/03/16 07:16 97.9 F 66 18 131/80 96 Intake and Output 07/01/16 07/02/16 07/03/16 23:59 23:59 23:59 Intake Total 1413 3870 870 Output Total 3250 3275 1850 Balance -1837 595 -980 General: Alert, Cooperative, No Acute Distress HEENT: Atraumatic Lungs: Clear to Auscultation Bilaterally, Normal Air Movement Cardiovascular: Regular Rate and Rhythm, No Murmur Extremities: Edema (still with ongoing edema of lower extrem, firm. No cellulitis noted. R shoulder ROM improved.) Skin: Normal Color Neurological: Normal Speech Psych/Mental Status: Normal Mood (quite upbeat) Laboratory 06/29/16 07:46 07/03/16 07:50 Current Medications: Current meds reviewed in EMR. Active Medications Acetaminophen (Tylenol) 650 mg PO Q6H PRN PRN Reason: Mild Pain Or Temp > 100.5 F Last Admin: 07/02/16 04:12 Dose: 650 mg Albuterol Sulfate (Ventolin Inhalation Solution (Dose)) 2.5 mg NEB Q2H PRN PRN Reason: Wheezing Last Admin: 05/25/16 19:46 Dose: 2.5 mg Albuterol/Ipratropium (Duoneb) 3 ml NEB Q6H PRN PRN Reason: Wheezing or Dyspnea Last Admin: 06/07/16 23:01 Dose: 3 ml Ascorbic Acid (Vitamin C) 500 mg PO DAILY [facility] Last Admin: 07/03/16 08:57 Dose: 500 mg Atenolol (Tenormin) 50 mg PO DAILY [facility] Last Admin: 07/03/16 08:57 Dose: 50 mg Benzocaine/Menthol (Cepacol) 1 each PO PRN PRN PRN Reason: Sore Throat Bisacodyl (Dulcolax) 10 mg [place] DAILY PRN PRN Reason: Constipation Bisacodyl (Dulcolax) 5 mg PO DAILY PRN PRN Reason: Constipation Diphenhydramine HCl (Benadryl) 25 - 50 mg IV Q6H PRN PRN Reason: Severe Itching Last Admin: 06/13/16 21:18 Dose: 50 mg Diphenhydramine HCl (Benadryl) 25 - 50 mg PO QID PRN PRN Reason: Itching Last Admin: 06/04/16 15:41 Dose: 50 mg Ferrous Sulfate (Ferrous Sulfate) 325 mg PO DAILY [facility] Last Admin: 07/03/16 08:56 Dose: 325 mg Furosemide (Lasix) 40 mg PO DAILY [facility] Last Admin: 06/13/16 08:12 Dose: 40 mg Sodium Chloride (Sodium Chloride 0.9%) 100 mls @ 25 mls/hr IV PRN PRN PRN Reason: Flush Last Admin: 07/02/16 10:01 Dose: 25 mls/hr Promethazine HCl 12.5 mg/ (Sodium Chloride) 50.5 mls @ 200 mls/hr IV Q4H PRN PRN Reason: Nausea/Vomiting Vancomycin HCl 1 g/ Sodium (Chloride) 250 mls @ 270 mls/hr IV Q12H [facility] Stop: 07/04/16 21:59 Last Admin: 07/03/16 09:43 Dose: 270 mls/hr Magnesium Hydroxide (Milk Of Magnesia) 30 ml PO DAILY PRN PRN Reason: Constipation Magnesium Oxide (Magnesium Oxide) 800 mg PO BID [facility] Last Admin: 07/03/16 08:56 Dose: 800 mg Methadone HCl (Methadone) 40 mg PO Q24H [facility] Last Admin: 07/03/16 13:31 Dose: 40 mg Ondansetron HCl (Zofran) 4 mg IV Q6H PRN PRN Reason: Nausea/Vomiting Pantoprazole Sodium (Protonix) 40 mg PO DAILY [facility] Last Admin: 07/03/16 08:57 Dose: 40 mg Petrolatum/Paraffin/Mineral Oil (Blistex) 1 each TP PRN PRN PRN Reason: Dry and/or chapped lips Sodium Chloride (Normal Saline 10ml Flush) 10 - 50 ml IV PRN PRN PRN Reason: IV Flush Last Admin: 07/02/16 22:25 Dose: 10 ml Sodium Chloride (Normal Saline 10ml Flush) 10 ml IV Q8HR [facility] Last Admin: 07/03/16 08:57 Dose: 10 ml - Problems: Assessment/Plan (1) Cellulitis and abscess of lower extremity Status: AcuteAssessment/Plan: At IVDA injection site on medial R knee. Clinically Improved after I/D. Appears healing well. Blood cx growing MRSA, urine and abscess both growing MRSA. Blood cultures neg since 05/26. Cont. vancomycin, anticipate staying until 07/04 . (2) Endocarditis Qualifiers: Endocarditis type: infective Infective endocarditis organism: bacterial Chronicity: unspecified Qualifier Code: (I33.0) Acute and subacute infective endocarditis Status: SuspectedAssessment/Plan: Suspected Infective Endocarditis based on multiple minor criteria and persistently positive blood cx (major criteria). TTE showed no vegetations. Blood cx results + for MRSA on 05/24 and 05/25 and negative thereafter. previously discussed with ID-> 6 weeks of Vancomycin, anticipating will complete course 07/04. (3) Septic arthritis of shoulder, right Qualifiers: Septic arthritis organism: staphylococcal Qualifier Code: (M00.011) Staphylococcal arthritis, right shoulder Status: AcuteAssessment/Plan: Ortho following, arthocentesis growing MRSA, s/p washout. Vanco as above.-OT consult for ROM (4) Hypertension Qualifiers: Hypertension type: other secondary hypertension Qualifier Code: (I15.8 ) Other secondary hypertension Status: AcuteAssessment/Plan: improved with atenolol, cont. methadone. Control appears good. (5) Anasarca Status: ChronicAssessment/Plan: Improving slowly. Pt tends to rest in chair with feet down (6) Heroin abuse Status: ChronicAssessment/Plan: Long standing heavy use, appreciate SW consult. Methadone for withdrawal sx and chronic addiction. High risk to use if discharged- plan for 6 weeks vanco therapy in hospital, unlikely to be able to get Methadone at SNF facility. Staying until 07/04. Drugs of Abuse Panel 06/08 negative for all but methadone. Plan follow up at outpt methadone clinic after DC. VTE Prophylaxis: encourage activity, previously with low platelets Disposition: 6 weeks of IV Vancomycin-will complete treatment in hospital. Plan d/c 07/04/16.
[2016-07-04] MEDS: ATENOLOL 50 MG TABLET PO SCH (08:34)
[2016-07-04] MEDS: Magnesium Oxide 400 MG TABLET PO SCH (08:34)
[2016-07-04] MEDS: FERROUS SULFATE (65 Fe) 325 MG TABLET PO SCH (08:34)
[2016-07-04] MEDS: ASCORBIC ACID 500 MG TABLET PO SCH (08:34)
[2016-07-04] MEDS: PANTOPRAZOLE 40 MG TABLET DR PO SCH (08:34)
[2016-07-04 08:40] VITALS: BP 143/88
[2016-07-04] MEDS: VANCOMYCIN HCL 1 G in SODIUM CHLORIDE 0.9% 250 ML IV SCH (09:59)
[2016-07-04] MEDS: METHADONE 10 MG TABLET PO SCH (11:13)
--- NOTE | 2016-07-04 12:02 | DS ---
Hubert Sims [id number] : 1960 DATE OF ADMISSION: 05/24/2016 DATE OF DISCHARGE: 07/04/2016 ADMIT DIAGNOSES: 1. Cellulitis and abscess to the right knee. 2. Severe sepsis. 3. Intravenous drug abuse. DISCHARGE DIAGNOSES: 1. Presumed bacterial endocarditis with methicillin resistant Staph aureus. 2. Cellulitis and abscess of the right knee with methicillin resistant Staph aureus. 3. Septic arthritis of the right shoulder with methicillin resistant Staph aureus. 4. Severe sepsis with multiple positive blood cultures for methicillin resistant Staph aureus. 5. Hypertension. 6. Hypomagnesemia. 7. Anemia. 8. Intravenous drug abuse with heroin. 9. Chronic hepatitis C with normal liver enzymes. 10. Anasarca, resolved. PROCEDURES: 1. Right knee incision and drainage on May 24, culture subsequently grew methicillin resistant Staph aureus. 2. PICC line placement on May 25. 3. Right shoulder ultrasound on May 26, this was negative for effusion. 4. Echocardiogram on May 26 showed ejection fraction of 55% to 60% with no regional wall motion abnormalities. There were no valvular vegetations or pathologic regurgitation on this transthoracic study. 5. Arthrocentesis fluoroscopy guided of the right shoulder on May 28, culture subsequently grew methicillin resistant Staph aureus. 6. Arthroscopic debridement and washing out of both the right shoulder and right knee done by Dr. Gonzales on May 29. CONSULTATIONS: 1. Dr. Jamie Gonzales, orthopedics. 2. Physical and occupational therapy. Patient was independent in his activities of daily living. HISTORY OF ADMISSION: Mr. Sims is a 55-year-old with a fci history of IV heroin abuse. He presented to the emergency department on May 24 with a five day history of fever, cough, shortness of breath, weakness, and an abscess on the medial aspect of his right knee. He had the incision and drainage done in the emergency department. He was started on intravenous vancomycin and Zosyn, IV fluids for sepsis, and admitted to intermediate care. HOSPITAL COURSE: He had rapid resolution of his fever and resolution of his symptoms of septicemia, but continued to have ongoing issues with the right shoulder and right knee joints. The diagnosis of endocarditis was made on the basis of multiple minor criteria given the polyarticular infection with methicillin resistant Staph aureus. PICC line was placed and he was continued on vancomycin treatment. Both joints required arthroscopic debridement and irrigation. He did develop transient anasarca from hydration, this resolved with diuresis. By the week following admission, he was stable, but decision was made to continue vancomycin treatment for 6 weeks due to the diagnosis of endocarditis. He remained stable for the balance of the 6 week treatment. His heroin addiction was treated with oral methadone while in the hospital. This treatment will need to be taken over by methadone treatment program upon outpatient discharge. On July 04 he has completed 6 weeks of vancomycin treatment. He is ambulatory and in good spirits and stable for discharge. DISCHARGE EXAMINATION: VITAL SIGNS: Temperature 98.4 degrees Fahrenheit, pulse 71, blood pressure 143/88, respiratory rate 18, oxygen saturation 96% on room air. CHEST: Clear to auscultation. HEART: Regular. No murmur appreciated. ABDOMEN: Soft, nontender. EXTREMITIES: Without edema. DISCHARGE PLAN: 1. PICC line will be discontinued and patient will be given a final dose of 40 mg oral methadone today and discharged. 2. He will "walk in" for follow-up at the [facility] tomorrow July 05. 3. He has an appointment with Dr. Dunlap to establish care on July 12. Diet: regular Activity: as tolerated Medications: 1. Atenolol 50 mg PO daily 2. Furosemide 40 mg PO daily 3. Magnesium oxide 800 mg PO BID 4. Pantoprazole 40 mg PO daily 5. Acetaminophen 650 mg PO Q6h PRN 6. FeSO4 325 mg with Vitamin C 500 mg PO daily. JOB: [id number] CC: Dr. Leah Dunlap [facility]
== END 2016-07-04 11:50 | disposition home or self-care (01) | DRG 853 ==
LOC: ED 11:51 → ICU 14:42 → MS 05-30 04:30
PROVIDERS: ADMIT Family Medicine; ATTEND Family Medicine
PROC: 02HV33Z Insertion of Infusion Device into Superior Vena Cava, Percutaneous Approach (ICD-10-PCS; 2016-05-25)
PROC: HZ91ZZZ Pharmacotherapy for Substance Abuse Treatment, Methadone Maintenance (ICD-10-PCS; 2016-05-26)
PROC: HZ2ZZZZ Detoxification Services for Substance Abuse Treatment (ICD-10-PCS; 2016-05-26)
PROC: 0S9C3ZX Drainage of Right Knee Joint, Percutaneous Approach, Diagnostic (ICD-10-PCS; principal; 2016-05-28)
PROC: 0L9 Tendons, Drainage (ICD-10-PCS; 2016-05-28)
PROC: 0JDN0ZZ Extraction of Right Lower Leg Subcutaneous Tissue and Fascia, Open Approach (ICD-10-PCS; 2016-05-29)
PROC: 0JDD0ZZ Extraction of Right Upper Arm Subcutaneous Tissue and Fascia, Open Approach (ICD-10-PCS; 2016-05-29)
DX: A41.02 Sepsis due to Methicillin resistant Staphylococcus aureus (principal); I33.0 Acute and subacute infective endocarditis; M00.011 Staphylococcal arthritis, right shoulder; M00.061 Staphylococcal arthritis, right knee; L02.415 Cutaneous abscess of right lower limb; E87.1 Hypo-osmolality and hyponatremia; F11.23 Opioid dependence with withdrawal; L03.115 Cellulitis of right lower limb; N39.0 Urinary tract infection, site not specified; R65.20 Severe sepsis without septic shock; D69.6 Thrombocytopenia, unspecified; B18.2 Chronic viral hepatitis C; E87.6 Hypokalemia; I10 Essential (primary) hypertension; B95.62 Methicillin resistant Staphylococcus aureus infection as the cause of diseases classified elsewhere; D64.9 Anemia, unspecified